=== PATIENT | female | born 2005 | race Caucasian/White ===

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

== ENCOUNTER 2024-04-01 10:54 | Outpatient (OUT) | payer MEDICAID, SELFPAY ==
--- NOTE | 2024-04-01 10:58 | XR_ITS ---
[address] [address] Patient Name: MAG SANTOS MRN: [id number] date: 2005 Sex: F Assigned Patient Location: [facility] Current Patient Location: Accession/Order Number: [id number] Exam Date: 04/01/2024 11:08 Report Date: 04/02/2024 11:58 At the request of: YEHUDA DELGADO Procedure: XR knee RT 3V PROCEDURE: XR knee RT 3V COMPARISON: None. HISTORY: Internal Derangement Of Right Knee FINDINGS: BONES:No fracture, acute abnormality, or significant arthropathy. SOFT TISSUES:Negative. No visible soft tissue swelling. EFFUSION:None visible. OTHER: Negative. XR/XR knee RT 3V IMPRESSION: No acute radiographic abnormality Electronically authenticated by: MAI MILLER Date: 04/02/2024 11:58
--- OUTSIDE RECORDS SUMMARY | 2024-04-01 11:04 | XMS_ITS | CCD ---
Author Organization [facility] Care Team Providers Care Light Armored Vehicle Officer Name Role Phone AICHHOLZ, RECEPTIONIST TELEPHONE OPERATOR LUZMARIA Attending Unavailable AICHHOLZ, RECEPTIONIST TELEPHONE OPERATOR LUZMARIA Admitting Unavailable AICHHOLZ, RECEPTIONIST TELEPHONE OPERATOR LUZMARIA Primary Care Unavailable GINETTE .SHERWIN Consulting Unavailabl e DIAB ., CAROLIN Attending Unavailable DIAB ., CAROLIN Admitting Unavailable AICHHOLZ, RECEPTIONIST TELEPHONE OPERATOR LUZMARIA Primary Care Unavailable CRISTINA MCKEON Consulting Unavailable DIAB ., CAROLIN Consulting Unavailable ZIEBEHSAN, DR BRENDA Mckinney Consulting Unavailable PAY ., DR DAWSON Attending Unavailable PAY ., DR DAWSON Admitting Unavailable AICHHOLZ, RECEPTIONIST TELEPHONE OPERATOR LUZMARIA Primary Care Unavailable PAY ., DR DAWSON Consulting Unavailable MISC, DR RUDOLPH Attending Unavailable MISC, DR RUDOLPH Admitting Unavailable MISC, DR RUDOLPH Consulting Unavailable AICHHOLZ, RECEPTIONIST TELEPHONE OPERATOR LUZMARIA Primary Care Unavailable AICHHOLZ, RECEPTIONIST TELEPHONE OPERATOR LUZMARIA Attending Unavailable AICHHOLZ, RECEPTIONIST TELEPHONE OPERATOR LUZMARIA Admitting Unavailable AICHHOLZ, RECEPTIONIST TELEPHONE OPERATOR LUZMARIA Primary Care Unavailable AICHHOLZ, RECEPTIONIST TELEPHONE OPERATOR LUZMARIA Consulting Unavailable ZIEBER, DR BRENDA Mckinney Consulting Unavailable AICHHOLZ, LUZMARIA Attending Unavailable Aichholz CHIEF ENGINEER'S HELPER, Luzmaria Unavailable Javier Gutierrez MD Primary Care Provider Luzmaria Allen Primary Care Provider [phone] Félix White MD Attending Provider [phone] Luzmaria Allen Primary Care Unavailable Félix White Attending Unavailable Asalita, Imlita Admitting Unavailable Allergies Allergy Classification Reported Allergen(s) Allergy Type Date of Onset Reaction(s) Facility (1 source) Aspirin / Caffeine Drug Allergy [facility] Repository (1 source) Brompheniramine / Pseudoephedrine Drug Allergy 05-10-19 15 [facility] Repository (1 source) Sulfamethoxazole / Trimethoprim Drug Allergy 08-22-19 13 [facility] Repository (1 source) vitamin K3 Drug Allergy [facility] Repository (3 sources) Brompheniramine Drug Allergy 12-24-19 GI intolerance [facility] Work Phone: Comment on above: vomiting (3 sources) Phenylephrine Drug Allergy 12-24-19 GI intolerance [facility] Comment on above: vomiting (3 sources) Pseudoephedrine Drug Allergy 12-24-[address] [facility] Comment on above: vomiting (3 sources) Sulfamethoxazole Allergy to substance 12-24-[address] [facility] Comment on above: vomiting (3 sources) Trimethoprim [facility] on above: vomiting (1 source) Pseudoeph-Bromphen- Dm Propensity to adverse [facility] Brompheniramine Drug Allergy 03-04-20 [facility] Repository (1 source) Phenylephrine Drug Allergy 03-04-20 [facility] Repository (1 source) Pseudoephedrine Drug Allergy 03-04-20 [facility] Repository (1 source) Sulfamethoxazole Drug Allergy 03-04-20 [facility] Repository (1 source) Trimethoprim Drug Allergy 03-04-20 [facility] Repository Medications Current Medications Medication Drug Class(es) Dates Sig (Normalized) Sig (Original) [id number] actuat albuterol 0.09 mg/actuat metered dose inhaler (1 source) beta2-Adrenergic Agonist take 2 puff(s) by inhalation every six hours for wheezing albuterol HFA 90 mcg/act inhaler Inhale 2 puffs every 6 (six) hours if needed for wheezing or shortness of breath Active fluticasone propionate 0.05 mg/actuat metered dose nasal spray (1 source) Corticosteroid Start: 12-23-2022 take 2 spray(s) nasal route once daily fluticasone (Flonase) 50 MCG/ACT nasal spray Administer 2 sprays into each nostril Daily 12/23/2022 Active loratadine 10 mg oral tablet (1 source) loratadine (Claritin) 10 MG tablet TAKE 2 TABS DAILY FOR THE FIRST 5 DAYS, THEN TAKE 1-2 NEEDED FOR ALLERGY SYMPTOMS THEREAFTER. Active sertraline 100 mg oral tablet (3 sources) Serotonin Reuptake Inhibitor Start: 02-12-2024 take 1 tablet by mouth once daily Sertraline 100 mg tablet Active 100 MG PO Daily February 11, 2024 11:00pm take 1 tablet by mouth once daniel y sertraline (Zoloft) 100 MG tablet Take 100 mg by mouth Daily Active Completed/Discontinued Medications Medication Drug Class(es) Dates Sig (Normalized) Sig (Original) pantoprazole 20 mg delayed release oral tablet (6 sources) Proton Pump Inhibitor Start: 10-21-2023 End: 02-19-2024 take 1 tablet by mouth once daily Pantoprazole 20 mg tablet,delayed release (DR/EC) Discontinued 20 MG PO Daily February 11, 2024 11:00pm February 12, 2024 8:23am Problems Active Problems Problem Classification Problem Date Documented Da te Episodic/Chronic Allergic reactions (1 source) Atopic dermatitis; Translations: [Atopic dermatitis, unspecified] Onset: 4 12-04-2023 Chronic Anxiety disorders (1 source) Mixed anxiety and depressive disorder; Translations: [Anxiety disorder, unspecified] Onset: 4 09-16-2023 Chronic Asthma (1 source) Mild intermittent asthma; Translations: [Mild intermittent asthma, uncomplicated] Onset: 4 09-16-2023 Chronic E Codes: Struck by; against (1 source) Striking against or struck by other objects, initial encounter; Translations: [STRIKING AGNST/STRUCK OTH OBJ INIT] Onset: 3 Episodic Esophageal disorders (6 sources) Gastroesophageal reflux disease without esophagitis; Translations: [Gastro-esophageal reflux disease without esophagitis] Onset: 4 01-20-2024 Chronic Other aftercare (4 sources) Other jail (current) drug therapy; Translations: [OTH SKILLED NURSING CURRENT DRUG THERAPY] Onset: 2 Episodic Other gastrointestinal disorders (1 source) Dysphagia, unspecified; Translations: [Dysphagia, unspecified] Onset: 4 Episodic Other non-traumatic joint disorders (3 sources) Pain in left wrist; Translations: [PAIN IN LEFT WRIST] Onset: 3 Episodic Other upper respiratory disease (1 source) Allergic disposition; Translations: [Other allergic rhinitis] Onset: 4 09-16-2023 Chronic Superficial injury; contusion (2 sources) Contusion of left wrist, initial encounter; Translations: [Contusion of right hand, initial encounter] Onset: 2 Episodic Past or Other Problems Problem Classification Problem Date Documented Da te Episodic/Chronic Abdominal pain (1 source) Right upper quadrant pain; Translations: [Right upper quadrant pain] Onset: 09-16-2023 10-21-2023 Episodic Other connective tissue disease (1 source) Pain in right hand; Translations: [PAIN IN RIGHT HAND] Onset: 03-20-2022 Episodic Other gastrointestinal disorders (1 source) Constipation; Translations: [Other constipation] Onset: 09-16-2023 09-16-2023 Episodic Other non-traumatic joint disorders (3 sources) Pain in right wrist; Translations: [PAIN IN RIGHT WRIST] Onset: 03-18-2022 Episodic Other non-traumatic joint disorders (4 sources) Pain in left elbow; Translations: [PAIN IN LEFT ELBOW] Onset: 01-16-2022 Episodic Other nutritional; endocrine; and metabolic disorders (1 source) Body mass index 30+ - obesity; Translations: [Obesity, unspecified] Onset: 09-16-2023 Resolved: 09-16-2023 09-16-2023 Chronic Other nutritional; endocrine; and metabolic disorders (1 source) Body mass index 25-29 - overweight; Translations: [Overweight] Onset: 09-16-2023 09-16-2023 Episodic Results Test Name Value Interpretation Reference Range Facil ity HCG ( test) IAsalena d Ql (U)Ordered By: Félix White on 03-04-2024 HCG ( test) Ql (U) Urine human chorionic gonadotropin (hCG) detection by immunoassay [facility] HCG,Urineon 03-04-2024 Beta HCG ( test) Ql (U) Negative Normal [facility] Comment on above: Result Comment: PERF ORMED BY: [address] [place] [address] PATHOLOGIST EMBOSSING TOOL SETTER REBECCA PUGH M.D. Performed By: #### U HCG #### [address] [place] [address] [facility] Pathology Request for Lab Co rpon 03-04-2024 Pathology Request for Lab Yajaira Normal [facility] Comment on above: Order Comment: PATH SENDOUT-GI SPECIMEN Result Comment: See report. Scanned copy available in EMR. PERFORMED BY: [place] [address] PATHOLOGIST EMBOSSING TOOL SETTER REBECCA PUGH M.D. Performed By: #### P ATH TO [facility] #### [facility] [address] [place], [place] [id number] [facility] XR WRIST LT MIN 3 Von 2022 XR WRIST LT MIN 3 V EXAM: XR WRIST LT MIN 3 V HISTORY: Pain of left wrist COMPARISON: None. TECHNIQUE: 3 views of the left wrist are performed. FINDINGS: There is no acute fracture. The bony structures are intact. Joint spaces are maintained. Unremarkable soft tissues. IMPRESSION: No acute bony abnormality. Electronically authenticated by: CRISTINA MCKEON Date: 2022-05-14 22:36 Normal [facility] QUANTIFERON TB GOLD PLUSon 1 05-28-2021 QuantiFERON Criteria Comment Normal [facility] Comment on above: Result Comment: Lester [...] test. Performed By: #### Q NTTB #### [facility] [address] [address] [address] Rigoberto Quintero QuantiFERON Incubation Incubation performed. Normal [facility] Comment on above: Performed By: #### Q NTTB #### [facility] [address] [address] [address] Rigoberto Quintero QuantiFERON Mitogen Value >10.00 Normal [facility] Comment on above: Performed By: #### Q NTTB #### [facility] [address] [address] [address] Rigoberto Quintero QuantiFERON Nil Value 0.02 IU/mL Normal [facility] Comment on above: Performed By: #### Q NTTB #### [facility] [address] [place] [address] Dr. Rigoberto Quintero QuantiFERON TB1 Ag Value 0.02 IU/mL Normal [facility] Comment on above: Performed By: #### Q NTTB #### [facility] [address] [place] [address] Dr. Rigoberto Quintero QuantiFERON TB2 Ag Value 0.02 IU/mL Normal [facility] Comment on above: Performed By: #### Q NTTB #### [facility] [address] [place] [address] Dr. Rigoberto Quintero QuantiFERON-TB Gold Plus Negative Normal Negative [facility] Comment on above: Result Comment: No r esponse to M tuberculosis antigens detected. Infection with M tuberculosis is unlikely, but high risk individuals should be considered for additional testing (ATS/IDSA/CDC Clinical Practice Guidelines, 2017). The reference range is an Antigen minus Nil result of <0.35 IU/mL. Chemiluminescence immunoassay methodology Performed By: #### Q NTTB #### [facility] [address] [place] [address] Dr. Rigoberto Quintero CBC AUTO DIFFon 03-25-2022 BASO # 0.0 103/ul Normal 0.0-0.1 [facility] Comment on above: Performed By: #### C BC #### [facility] [address] [place] [address] Dr. Rigoberto Quintero Basophils/100 WBC (Bld) 0.6 % Normal 0.2-2.0 [facility] Comment on above: Performed By: #### C BC #### [facility] [address] [place] [address] Dr. Rigoberto Quintero EO # 0.1 103/ul Normal 0.0-0.7 [facility] Comment on above: Performed By: #### C BC #### [facility] [address] [place] [address] Dr. Rigoberto Quintero Eosinophils/100 WBC (Bld) 1.1 % Normal 0.9-7.0 [facility] Comment on above: Performed By: #### C BC #### [facility] [address] [place] [address] Dr. Rigoberto Quintero Erythrocyte distribution width (RBC) [Ratio] 12.0 % Normal 11.0-15.0 [facility] Comment on above: Performed By: #### C BC #### [facility] [address] [place] [address] Dr. Rigoberto Quintero Hematocrit (Bld) [Volume fraction] 43.7 % Normal 36.0-48.0 [facility] Comment on above: Performed By: #### C BC #### [facility] [address] [place] [address] Dr. Rigoberto Quintero Hemoglobin (Bld) [Mass/Vol] 14.7 g/dL Normal 12.0-16.0 [facility] Comment on above: Performed By: #### C BC #### [facility] [address] [place] [address] Dr. Rigoberto Quintero IG # 0.01 10e3/ul Normal 0.00-0.03 [facility] Comment on above: Performed By: #### C BC #### [facility] [address] [place] [address] Dr. Rigoberto Quintero IG % 0.2 % Normal 0.0-0.5 [facility] Comment on above: Performed By: #### C BC #### [facility] [address] [place] [address] Dr. Rigoberto Quintero LYMPH # 1.8 103/ul Normal 1.2-3.8 [facility] Comment on above: Performed By: #### C BC #### [facility] [address] [place] [address] Dr. Rigoberto Quintero Lymphocytes/100 WBC (Bld) 27.8 % Normal 20.5-60.0 [facility] Comment on above: Performed By: #### C BC #### [facility] [address] [place] [address] Dr. Rigoberto Quintero MANUAL DIFF REQ NO Normal [facility] Comment on above: Performed By: #### C BC #### [facility] [address] [place] [address] Dr. Rigoberto Quintero MCH (RBC) [Entitic mass] 28.1 pg Normal 26.7-34.0 [facility] Comment on above: Performed By: #### C BC #### [facility] [address] [place] [address] Dr. Rigoberto Quintero MCHC (RBC) [Mass/Vol] 33.6 g/dL Normal 29.9-35.2 [facility] Comment on above: Performed By: #### C BC #### [facility] [address] [place] [address] Dr. Rigoberto Quintero MCV (RBC) [Entitic vol] 83.4 fL Normal 81.0-99.0 [facility] Comment on above: Performed By: #### C BC #### [facility] [address] [place] [address] Dr. Rigoberto Quintero MONO # 0.5 103/ul Normal 0.3-0.8 [facility] Comment on above: Performed By: #### C BC #### [facility] [address] [place] [address] Dr. Rigoberto Quintero Monocytes/100 WBC (Bld) 7.3 % Normal 1.7-12.0 [facility] Comment on above: Performed By: #### C BC #### [facility] [address] [place] [address] Dr. Rigoberto Quintero NEUT # 4.0 103/ul Normal 1.4-6.5 [facility] Comment on above: Performed By: #### C BC #### [facility] [address] [place] [address] Dr. Rigoberto Quintero Neutrophils/100 WBC (Bld) 63.0 % Normal 43.0-75.0 [facility] Comment on above: Performed By: #### C BC #### [facility] [address] [place] [address] Dr. Rigoberto Quintero Platelet mean volume (Bld) [Entitic vol] 10.6 fL Normal 9.5-13.5 [facility] Comment on above: Performed By: #### C BC #### [facility] [address] [address] [address] Rigoberto Quintero PLT 219 103/ul Normal 150-450 [facility] Comment on above: Performed By: #### C BC #### [facility] [address] [address] [address] Rigoberto Quintero RBC 5.24 106/ul Normal 4.20-5.40 [facility] Comment on above: Performed By: #### C BC #### [facility] [address] [address] [address] Rigoberto Quintero WBC 6.3 103/ul Normal 4.0-11.0 [facility] Comment on above: Performed By: #### C BC #### [facility] [address] [place] [address] Dr. Rigoberto Quintero LIPID PROFILEon 03-25-2022 CHOL-HDL RATIO NORM SEE BELOW Normal [facility] Comment on above: Result Comment: 3.3 - 4.4 LOW RISK 4.4 - 7.1 AVERAGE RISK 7.1 - 11.0 MODERATE RISK >11.0 HIGH RISK Performed By: #### C MP, LIPID #### [facility] [address] [place] [address] Dr. Rigoberto Quintero Cholesterol [Mass/Vol] 168 mg/dL Normal 104-227 [facility] Comment on above: Performed By: #### C MP, LIPID #### [facility] [address] [address] [address] Rigoberto Quintero Cholesterol in HDL [Mass/Vol] 49 mg/dL Normal 29-69 [facility] Comment on above: Performed By: #### C MP, LIPID #### [facility] [address] [address] [address] Rigoberto Quintero Cholesterol in LDL [Mass/Vol] 103.0 mg/dL Normal 46.0-140.0 [facility] Comment on above: Performed By: #### C MP, LIPID #### [facility] [address] [place] [address] Dr. Rigoberto Quintero Cholesterol.total/C holesterol in HDL [Mass ratio] 3.4 {ratio} Normal [facility] Comment on above: Performed By: #### C MP, LIPID #### [facility] [address] [address] [address] Rigoberto Quintero HDL NORMAL > or = 60 mg/dl - LOW CARDIOVASCULAR RISK <40 mg/dl - HIGH CARDIOVASCULAR RISK Normal [facility] Comment on above: Performed By: #### C MP, LIPID #### [facility] [address] [address] [address] Rigoberto Quintero LDL CALC NORMAL SEE BELOW Normal [facility] Comment on above: Result Comment: <100 mg/dl OPTIMAL 100 - 129 mg/dl NEAR OR ABOVE OPTIMAL 130 - 159 mg/dl BORDERLINE HIGH 160 - 189 mg/dl HIGH >190 mg/dl VERY HIGH Performed By: #### C MP, LIPID #### [facility] [address] [address] [address] Rigoberto Quintero Triglyceride [Mass/Vol] 80 mg/dL Normal 53-208 [facility] Comment on above: Performed By: #### C MP, LIPID #### [facility] [address] [address] [address] Rigoberto Quintero VLDL CALC 16.0 mg/dL Normal [facility] Comment on above: Performed By: #### C MP, LIPID #### [facility] [address] [address] [address] Rigoberto Quintero PROF 14(COMP METB)on 022 Albumin [Mass/Vol] 4.1 g/dL Normal 3.4-5.0 [facility] Comment on above: Performed By: #### C MP, LIPID #### [facility] [address] [address] [address] Rigoberto Quintero Albumin/Globulin [Mass ratio] 0.9 {ratio} Normal [facility] Comment on above: Performed By: #### C MP, LIPID #### [facility] [address] [address] [address] Rigoberto Quintero ALP [Catalytic activity/Vol] 91 U/L Normal 46-116 [facility] Comment on above: Performed By: #### C MP, LIPID #### [facility] [address] [address] [address] Rigoberto Quintero ALT [Catalytic activity/Vol] 38 U/L Normal 14-59 [facility] Comment on above: Performed By: #### C MP, LIPID #### [facility] [address] [address] [address] Rigoberto Quintero Anion gap [Moles/Vol] 14.1 mmol/L Normal [facility] Comment on above: Performed By: #### C MP, LIPID #### [facility] [address] [address] [address] Rigoberto Quintero AST [Catalytic activity/Vol] 28 U/L Normal 15-37 [facility] Comment on above: Performed By: #### C MP, LIPID #### [facility] [address] [place] [address] Dr. Rigoberto Quintero Bilirubin [Mass/Vol] 0.5 mg/dL Normal 0.2-1.0 [facility] Comment on above: Performed By: #### C MP, LIPID #### [facility] [address] [place] [address] Dr. Rigoberto Quintero Calcium [Mass/Vol] 9.6 mg/dL Normal 8.5-10.1 [facility] Comment on above: Performed By: #### C MP, LIPID #### [facility] [address] [place] [address] Dr. Rigoberto Quintero Chloride [Moles/Vol] 102 mmol/L Normal 98-107 [facility] Comment on above: Performed By: #### C MP, LIPID #### [facility] [address] [place] [address] Dr. Rigoberto Quintero CO2 [Moles/Vol] 27.6 mmol/L Normal 21.0-32.0 [facility] Comment on above: Performed By: #### C MP, LIPID #### [facility] [address] [place] [address] Dr. Rigoberto Quintero Creatinine [Mass/Vol] 0.67 mg/dL Normal 0.55-1.02 [facility] Comment on above: Performed By: #### C MP, LIPID #### [facility] [address] [address] [address] Rigoberto Quintero EGFR-AF BANGLADESHI >60 Normal >=60 [facility] Comment on above: Performed By: #### C MP, LIPID #### [facility] [address] [address] [address] Rigoberto Quintero EGFR-NON AF BANGLADESHI >60 Normal >=60 [facility] Comment on above: Performed By: #### C MP, LIPID #### [facility] [address] [address] [address] Rigoberto Quintero Globulin (S) [Mass/Vol] 4.5 g/dL Normal [facility] Comment on above: Performed By: #### C MP, LIPID #### [facility] [address] [place] [address] Dr. Rigoberto Quintero Glucose [Mass/Vol] 90 mg/dL Normal 74-106 [facility] Comment on above: Performed By: #### C MP, LIPID #### [facility] [address] [place] [address] Dr. Rigoberto Quintero Potassium [Moles/Vol] 3.7 mmol/L Normal 3.5-5.1 [facility] Comment on above: Performed By: #### C MP, LIPID #### [facility] [address] [place] [address] Dr. Rigoberto Quintero Protein [Mass/Vol] 8.6 g/dL Critically high 6.4-8.2 [facility] Comment on above: Performed By: #### C MP, LIPID #### [facility] [address] [place] [address] Dr. Rigoberto Quintero Sodium [Moles/Vol] 140 mmol/L Normal 136-145 [facility] Comment on above: Performed By: #### C MP, LIPID #### [facility] [address] [address] [address] Rigoberto Quintero Urea nitrogen [Mass/Vol] 16.0 mg/dL Normal 6.4-19.3 [facility] Comment on above: Performed By: #### C MP, LIPID #### [facility] [address] [address] [address] Rigoberto Quintero Urea nitrogen/Creatinine [Mass ratio] 23.9 mg/mg Normal [facility] Comment on above: Performed By: #### C MP, LIPID #### [facility] [address] [place], [place] [address] Dr. Rigoberto Quintero Vital Signs Date Time Vital Sign Value Performing Clinician Faci lity 03-04-2024 14:35-0500 Diastolic blood pressure 64 mm[Hg] Luzmaria Aichrasz Work Phone: [facility] 03-04-2024 14:35-0500 Heart rate 61 /min Luzmaria Aichholz Work Phone: [facility] 03-04-2024 14:35-0500 Respiratory rate 16 /min Luzmaria Aichholz Work Phone: [facility] 03-04-2024 14:35-0500 SaO2% (BldA) [Mass fraction] 99 % Luzmaria Aichholz Work Phone: [facility] 03-04-2024 14:35-0500 Systolic blood pressure 105 mm[Hg] Luzmaria Aichholz Work Phone: [facility] 03-04-2024 12:22-0500 Body height 177.8 cm Luzmaria Aichholz Work Phone: [facility] 03-04-2024 12:22-0500 Body weight 90.71 kg Luzmaria Aichholz Work Phone: [facility] 02-12-2024 09:05-0400 Body height 177.8 cm [facility] 02-12-2024 09:05-0400 Body mass index (BMI) [Ratio] 28.1 kg/m2 [facility] 02-12-2024 09:05-0400 Body weight 88.9 kg [facility] 02-12-2024 09:05-0400 Diastolic blood pressure 57 mm[Hg] [facility] 02-12-2024 09:05-0400 Heart rate 86 /min [facility] 02-12-2024 09:05-0400 Systolic blood pressure 108 mm[Hg] [facility] Encounters Encounter Date Encounter Type Care Provider Facility Start: 03-04-2024 Non-patient / Non-visit Luzmaria almazan Work Phone: [facility] Work Phone: Start: 03-04-2024 End: 03-04-2024 Admission to same day surgery center Luzmaria Allen Work Phone: [facility] Work Phone: Start: 03-04-2024 End: 03-04-2024 ambulatory Luzmaria Allen Work Phone: [facility] Work Phone: Start: 02-12-2024 End: 02-12-2024 ambulatory [facility] Work Phone: Start: 02-12-2024 End: 02-12-2024 Patient encounter procedure [facility] Work Phone: Start: 01-20-2024 End: 01-20-2024 Refill Luzmaria Allen [employer]IE[employer] Work Phone: [facility] Comment on above: Gastroesophageal ref lux disease without esophagitis Start: 09-16-2023 End: 09-16-2023 ambulatory LUZMARIA ALLEN Not Available Start: 06-24-2022 ambulatory RECEPTIONIST TELEPHONE OPERATOR LUZMARIA ALLEN Facil ity:H1 Start: 05-14-2022 End: 05-15-2022 ambulatory SHERWIN PENG . Facility:[facility] Start: 03-25-2022 End: 03-26-[address] DOCTOR SINGH Facility:[facility] Start: 03-18-2022 End: 03-18-[address] BRENDA DO Facility:[facility]1 Start: 01-16-2022 End: 01-17-2022 ambulatory ARLENE ALLEN Facility:[facility]1 Procedures Date Procedure Procedure Detail Performing Clinician Start: 03-04-2024 Esophagogastroduodenoscopy Luzmaria Deanahholz Work Phone: Plan of Treatment Date Care Activity Detail Author Start: 03-04-2024 [facility] Patient Education Andre knutson Know your Meds [facility] Work Phone: Immunizations Immunization Date Immunization Notes Care Provider Fa cility 01-01-2022 meningococcal B vacc ine, recombinant, OMV, adjuvanted Luzmaria Aichholz [employer]IEF ENGINEER'S HELPER Work Phone: [facility] 11-27-2021 meningococcal B vacc ine, recombinant, OMV, adjuvanted Luzmaria Aichholz [employer]IEF ENGINEER'S HELPER Work Phone: [facility] 11-27-2021 Meningococcal Polysaccharide A,C,Y,W-135 TT Conjugate Luzmaria Aichholz [employer]IE[employer] ENGINEER[employer] HELPER Work Phone: [facility] 12-31-2016 hepatitis A vaccine, pediatric/adolescent dosage, 2 dose schedule Luzmaria Aichholz [employer]IEF ENGINEER'S HELPER Work Phone: [facility] 11-12-2016 meningococcal polysaccharide (groups A, C, Y and W-135) diphtheria toxoid conjugate vaccine (MCV4P) Luzmaria Deanahholz [employer]IEF ENGINEER'S HELPER Work Phone: [facility] 11-12-2016 tetanus toxoid, redu shonda diphtheria toxoid, and acellular pertussis vaccine, adsorbed Luzmaria Aichholz [employer]IEF ENGINEER'[employer] HELPER Work Phone: [facility] 12-13-2009 Diphtheria, tetanus toxoids and acellular pertussis vaccine, and poliovirus vaccine, inactivated Luzmaria Aichholz [employer]IEF ENGINEER'S HELPER Work Phone: [facility] 12-13-2009 hepatitis A vaccine, pediatric/adolescent dosage, 2 dose schedule Luzmaria Aichholz [employer]IEF ENGINEER'S HELPER Work Phone: [facility] 12-13-2009 measles, mumps, rube lla, and varicella virus vaccine Luzmaria Aichholz CHIEF ENGINEER'S HELPER Work Phone: [facility] 05-31-2005 diphtheria, tetanus toxoids and acellular pertussis vaccine, unspecified formulation Luzmaria Aichholz CHIEF ENGINEER'S HELPER Work Phone: [facility] 05-31-2005 haemophilus influenz ae type b vaccine, conjugate unspecified formulation Luzmaria Aichholz [employer]IEF ENGINEER'S HELPER Work Phone: [facility] 05-31-2005 pneumococcal conjuga te vaccine, 7 valent Luzmaria Aichholz CHIEF ENGINEER'S HELPER Work Phone: [facility] 01-07-2005 measles, mumps and r ubella virus vaccine Luzmaria Aichholz CHIEF ENGINEER'S HELPER Work Phone: [facility] 01-07-2005 varicella virus vaccine Luzmaria Aichholz CHIEF ENGINEER'S HELPER Work Phone: [facility] 2004 diphtheria, tetanus toxoids and acellular pertussis vaccine, unspecified formulation Luzmaria Aichholz CHIEF ENGINEER'S HELPER Work Phone: [facility] 2004 haemophilus influenz ae type b conjugate and Hepatitis B vaccine Luzmaria Aichholz CHIEF ENGINEER'S HELPER Work Phone: [facility] 2004 pneumococcal conjuga te vaccine, 7 valent Luzmaria Aichholz CHIEF ENGINEER'S HELPER Work Phone: [facility] 2004 poliovirus vaccine, inactivated Luzmaria Aichholz CHIEF ENGINEER'S HELPER Work Phone: [facility] 2004 diphtheria, tetanus toxoids and acellular pertussis vaccine, unspecified formulation Luzmaria Aichholz CHIEF ENGINEER'S HELPER Work Phone: [facility] 2004 haemophilus influenz ae type b conjugate and Hepatitis B vaccine Luzmaria Aichholz CHIEF ENGINEER'S HELPER Work Phone: [facility] 2004 pneumococcal conjuga te vaccine, 7 valent Luzmaria Aichholz CHIEF ENGINEER'S HELPER Work Phone: [facility] 2004 poliovirus vaccine, inactivated Luzmaria Aichholz CHIEF ENGINEER'S HELPER Work Phone: [facility] 2004 diphtheria, tetanus toxoids and acellular pertussis vaccine, unspecified formulation Luzmaria Aichholz CHIEF ENGINEER'S HELPER Work Phone: [facility] 2004 haemophilus influenz ae type b conjugate and Hepatitis B vaccine Luzmaria Allen CHIEF ENGINEER'S HELPER Work Phone: [facility] 2004 pneumococcal conjuga te vaccine, 7 valent Luzmaria Mosspepe CHIEF ENGINEER'S HELPER Work Phone: [facility] 2004 poliovirus vaccine, inactivated Luzmaria Allen CHIEF ENGINEER'S HELPER Work Phone: [facility] Payers Date Payer Category Payer Self-pay 2022 Medicaid [id number] 2022 Medicaid [place] [employer] [id number] 2022-Present [address] [place] [address] [id number] 2022 Medicaid [id number] 2004 Unknown [id number] 2004 Unknown [id number] 2004 Unknown [id number] 1981 Unknown [id number] 1981 Unknown [id number] 1981 Unknown [id number] 1959 Unknown [id number] Unknown [id number] Social History Date Type Detail Facility Start: 09-16-2023 End: 03-04-2024 Tobacco smoking status WIIS Never smoked tobacco [facility] Start: 09-16-2023 Tobacco use and exposure Smokeless tobacco non-user [facility] Start: 10-21-2023 Alcoholic beverage intake Lifetime non-drinker (finding) [facility] Start: 09-16-2023 End: 10-21-2023 History of Social function [facility] Start: 09-16-2023 End: 10-21-[address] [facility] Start: 09-16-2023 Alcohol Comment caffine: energ y drinks [address] [facility] Start: 2004 Sex assigned at Not on file [facility] Start: 2004 Sex Assigned At Female F [facility] Start: 03-04-2024 Sex Female (finding) [facility] Goals Date Patient Goal Desired Activity /State Procedure note 03-04-2024 Note Date & Type Note Facility 03-04-[address] [facility] enter Evaluation note 02-12-2024 Note Date & Type Note Facility 02-12-2024 Evaluation note Authored February 12, 2024 8:23am 19-year-old female referred to the GI clinic for evaluation of heartburn. + Chronic heartburn f controlled with pantoprazole 20 mg daily + intermittent dysphagia. Will arrange for EGD. Will refill pantoprazole 20 mg daily Antireflux precautions were discussed [facility] Work Phone: Clinical Note 03-18-2022 Note Date & Type [...] authenticated by: BRENDA DO Date: 2022-03-18 08:50 [facility] Clinical Note 03-18-2022 Note Date & [...] authenticated by: BRENDA DO Date: 2022-03-18 08:50 [facility] Clinical Note 01-16-2022 Note Date & Type Note Facility 01-16-2022 Note PROCEDURE: XR ELBOW LT MIN 3 VIEWS HISTORY: Pain of left elbow joint since injury 5 days ago COMPARISON: None. FINDINGS: BONES:No fracture, acute abnormality, or significant arthropathy. SOFT TISSUES:No visible soft tissue swelling. EFFUSION:None visible. OTHER: Negative. IMPRESSION: 1. Normal examination. Electronically authenticated by: BRENDA DO Date: 2022-01-16 11:30 [facility] Evaluation note Note Date & Type Note Facility Evaluation note Diagnosis Gastroesophageal reflux disease without esophagitis Esophageal reflux documented in this encounter [facility] Evaluation note Note Date & Type Note Facility Evaluation note Authored February 12, 2024 9:23am 19-year-old female referred to the GI clinic for evaluation of heartburn. + Chronic heartburn f controlled with pantoprazole 20 mg daily + intermittent dysphagia. Will arrange for EGD. Will refill pantoprazole 20 mg daily Antireflux precautions were discussed [facility] Work Phone: Summary Purpose Family History No Family History Records Found Relationship Condition Age at Onset Recorded Date/T jacki maternal grandmother Hypertension Unknown Heart disease Unknown paternal grandfather Diabetes mellitus Unknown grandparent Malignant neoplasm Unknown Relationship Condition Age at Onset Recorded Date/T jacki maternal grandmother Hypertension Unknown Heart disease Unknown paternal grandfather Diabetes mellitus Unknown grandparent Malignant neoplasm Unknown paternal grandmother Malignant neoplasm of breast Unkn own Advance Directives No Advanced Directives Records Found Advance Directive Response Recorded Date/ Time Advance Directives No October 26 8:47am Advance Directive Response Recorded Date/ Time Advance Directives No October 26 7:47am Chief Complaint and Reason for Visit Chief Complaint Refer: consult GERD Reason for Visit GERD (gastroesophage al reflux disease) Chief Complaint Admit Date Refer: consult GERD February 12, 2024 9 :00am gerd/dysphagia March 04, 2024 11:46am gerd/dysphagia March 04, 2024 1:52pm Reason for Visit Admit Date GERD (gastroesophageal reflux disease) O ctober 2023 9:00am Additional Source Comments INFORMATION SOURCE (unrecogn ized section and content) DATE CREATED AUTHOR 06/22/2022 [facility] DATE CREATED AUTHOR AUTHOR'S ORGANIZ ATION 09/17/2023 [facility] EPIC DATE CREATED AUTHOR AUTHOR'S ORGANIZ ATION 03/16/2024 [facility] Reason for Visit (unrecogniz ed section and content) Reason Comments Med Refill Care Teams (unrecognized sec tion and content) [employer] Relationship Specialty Start Date End Date Javier Gutierrez MD [address] [place] [phone] PCP - General Family Medicine 09/16/23 Luzmaria Allen NP [address] [place] [id number] Referring Physician Nurse Practitioner 11/06/22 Team Status: Active Member Role Status Dates Luzmaria Allen Primary Care Provider Active Team Status: Inactive Member Role Status Dates Félix White MD Attending Provider Active Start: February 12, 2024 End: February 12, 2024 Luzmaria Allen Primary Care Provide r, Referring Provider Active Start: February 12, 2024 End: February 12, 2024 Team Status: Inactive Member Role Status Dates Luzmaria Allen Primary Care Provider Active Sta rt: March 04, 2024 End: March 04, 2024 Félix White MD Attending Provider Active Start: March 04, 2024 End: March 04, 2024 Team Status: Active Member Role Status Dates Luzmaria Allen Primary Care Provider Active Sta rt: March 04, 2024 Félix White MD Attending Provider, Other Provider Active Start: March 04, 2024 Goals (unrecognized section and content) Goals may be documented in a n alternate section FOR RECORDS PERTAINING TO PATIENTS WHO ARE [...] BE BASED ON THE PRIMARY CLINICAL RECORDS. [facility] [employer] [facility]. provides no warranty or guarantee of the accuracy or completeness of information in this document.
== END 2024-04-01 10:55 | disposition home or self-care (01) ==
LOC: RAD 10:55
PROVIDERS: PCP Nurse Practitioner; Visit Provider Nurse Practitioner
DX: M23.91 Unspecified internal derangement of right knee (principal)
CPT/HCPCS: 73562

== ENCOUNTER 2024-04-24 10:43 | Outpatient (OUT) | payer MEDICAID, SELFPAY ==
--- OUTSIDE RECORDS SUMMARY | 2024-04-24 10:47 | XMS_ITS | CCD ---
Author Organization [facility] Care Team Providers Care Cosmetology Professor Name Role Phone AICHHOLZ, SEMIAUTOMATIC STITCHER OPERATOR LUZMARIA Attending Unavailable AICHHOLZ, SEMIAUTOMATIC STITCHER OPERATOR LUZMARIA Admitting Unavailable AICHHOLZ, SEMIAUTOMATIC STITCHER OPERATOR LUZMARIA Primary Care Unavailable GINETTE .SHERWIN Consulting Unavailabl e DIAB ., CAROLIN Attending Unavailable DIAB ., CAROLIN Admitting Unavailable AICHHOLZ, SEMIAUTOMATIC STITCHER OPERATOR LUZMARIA Primary Care Unavailable CRISTINA MCKEON Consulting Unavailable DIAB ., CAROLIN Consulting Unavailable ZIEBEHSAN, DR BRENDA Mckinney Consulting Unavailable PAY ., DR DAWSON Attending Unavailable PAY ., DR DAWSON Admitting Unavailable AICHHOLZ, SEMIAUTOMATIC STITCHER OPERATOR LUZMARIA Primary Care Unavailable PAY ., DR DAWSON Consulting Unavailable MISC, DR RUDOLPH Attending Unavailable MISC, DR RUDOLPH Admitting Unavailable MISC, DR RUDOLPH Consulting Unavailable AICHHOLZ, SEMIAUTOMATIC STITCHER OPERATOR LUZMARIA Primary Care Unavailable AICHHOLZ, SEMIAUTOMATIC STITCHER OPERATOR LUZMARIA Attending Unavailable AICHHOLZ, SEMIAUTOMATIC STITCHER OPERATOR LUZMARIA Admitting Unavailable AICHHOLZ, SEMIAUTOMATIC STITCHER OPERATOR LUZMARIA Primary Care Unavailable AICHHOLZ, SEMIAUTOMATIC STITCHER OPERATOR LUZMARIA Consulting Unavailable ZIEBEHSAN, DR BRENDA Mckinney Consulting Unavailable Aichholz DELIVERY DEPARTMENT SUPERVISOR, Luzmaria Unavailable Javier Gutierrez MD Primary Care Provider [phone] Luzmaria Allen Primary Care Provider Cindy VALLE, Félix Attending Provider Luzmaria Allen Primary Care Unavailable Asalita, Imad Attending Unavailable Asaad, Imad Admitting Unavailable AICHHOLZ, LUZMARIA Attending Unavailable AICHHOLZ, LUZMARIA Attending Unavailable AICHHOLZ, LUZMARIA Attending Unavailable Allergies Allergy Classification Reported Allergen(s) Allergy Type Date of Onset Reaction(s) Facility (1 source) Aspirin / Caffeine Drug Allergy [facility] Repository (1 source) Brompheniramine / Pseudoephedrine Drug Allergy 05-10-19 15 [facility] Repository (1 source) Sulfamethoxazole / Trimethoprim Drug Allergy 08-22-19 13 [facility] Repository (1 source) vitamin K3 Drug Allergy [facility] Repository (9 sources) Brompheniramine Drug Allergy 12-24-19 GI intolerance [facility] Work Phone: Comment on above: vomiting (9 sources) Phenylephrine Drug Allergy 12-24-19 GI intolerance [facility] Comment on above: vomiting (9 sources) Pseudoephedrine Drug Allergy 12-24-19 GI intolerance [facility] Comment on above: vomiting (9 sources) Sulfamethoxazole Allergy to substance 12-24-19 Hives [facility] Comment on above: vomiting (9 sources) Trimethoprim Drug Allergy 12-24-19 Hives [facility] Comment on above: vomiting (7 sources) Pseudoeph-Bromphen- Dm Propensity to adverse reactions 09-16-19 Hives [facility] (1 source) Brompheniramine Drug Allergy 03-04-20 [facility] Repository (1 source) Phenylephrine Drug Allergy 03-04-20 [facility] Repository (1 source) Pseudoephedrine Drug Allergy 03-04-20 [facility] Repository (1 source) Sulfamethoxazole Drug Allergy 03-04-20 [facility] Repository (1 source) Trimethoprim Drug Allergy 03-04-20 [facility] Repository Medications Current Medications Medication Drug Class(es) Dates Sig (Normalized) Sig (Original) [id number] 200 actuat albuterol 0.09 mg/actuat metered dose inhaler (7 sources) beta2-Adrenergic Agonist take 2 puff(s) by inhalation every six hours for wheezing albuterol HFA 90 mcg/act inhaler Inhale 2 puffs every 6 (six) hours if needed for wheezing or shortness of breath Active clobetasol propionate 0.5 mg/ml topical cream (6 sources) Corticosteroid Start: 03-30-2024 clobetasol (Temovate) 0.05 % cream 03/30/2024 Active fluocinolone acetonide 0.1 mg/ml topical oil (6 sources) Corticosteroid Start: 03-30-2024 [place]-Smoothe/FS Body 0.01 % external oil 03/30/2024 Active fluticasone propionate 0.05 mg/actuat metered dose nasal spray (7 sources) Corticosteroid Start: 12-23-2022 take 2 spray(s) nasal route once daily fluticasone (Flonase) 50 MCG/ACT nasal spray Administer 2 sprays into each nostril Daily 12/23/2022 Active loratadine 10 mg oral tablet (6 sources) End: 04-22-2024 loratadine (Claritin) 10 MG tablet TAKE 2 TABS DAILY FOR THE FIRST 5 DAYS, THEN TAKE 1-2 NEEDED FOR ALLERGY SYMPTOMS THEREAFTER. 04/22/2024 Discontinued (Therapy completed) pantoprazole 40 mg delayed release oral tablet (14 sources) Proton Pump Inhibitor Start: 03-30-2024 take 1 tablet by mouth in the morning pantoprazole (ProtoNix) 40 MG EC tablet Take 40 mg by mouth in the morning and 40 mg before bedtime. 03/30/2024 Active Start: 10-21-2023 End: 04-01-2024 take 1 tablet by mouth before mealtime pantoprazole (ProtoNix) 20 MG EC tablet Indications: Gastroesophageal reflux disease without esophagitis Take 1 tablet (20 mg) by mouth in the morning. Take before meals. Do not crush, chew, or split.. 30 tablet 1 01/20/2024 04/01/2024 Discontinued (Ineffective) Risankizumab-rzaa (SKYRIZI S C) (4 sources) End: 04-22-2024 Risankizumab-rzaa (SKYRIZI S C) Inject under the skin 04/22/2024 Discontinued (Therapy completed) Risankizumab-rza a (SKYRIZI SC) Inject under the skin Active sertraline 25 mg oral tablet (12 sources) Serotonin Reuptake Inhibitor Start: 04-02-2024 take 1 tablet by mouth once daily sertraline (Zoloft) 25 MG tablet Take 25 mg by mouth Daily 04/02/2024 Active Start: 02-12-2024 take 1 tablet by ashley th once daily Sertraline 100 mg tablet Active 100 MG PO Daily February 11, 2024 11:00pm sertraline (Zolo ft) 100 MG tablet Take 120 mg by mouth Daily Active Skyrizi Pen 150 MG/ML soluti on auto-injector (3 sources) Start: 04-13-2024 Skyrizi Pen 15 0 MG/ML solution auto-injector 04/13/2024 Active Problems Active Problems Problem Classification Problem Date Documented Da te Episodic/Chronic Allergic reactions (7 sources) Atopic dermatitis; Translations: [Atopic dermatitis, unspecified] Onset: 4 12-04-2023 Chronic Anxiety disorders (9 sources) Mixed anxiety and depressive disorder; Translations: [Anxiety disorder, unspecified] Onset: 4 09-16-2023 Chronic Asthma (7 sources) Mild intermittent asthma; Translations: [Mild intermittent asthma, uncomplicated] Onset: 4 09-16-2023 Chronic Conditions associated with dizziness or vertigo (4 sources) Dizziness and giddiness; Translations: [Dizziness and giddiness] Onset: 5 04-22-2024 Episodic E Codes: Struck by; against (1 source) Striking against or struck by other objects, initial encounter; Translations: [STRIKING AGNST/STRUCK OTH OBJ INIT] Onset: 3 Episodic Esophageal disorders (12 sources) Gastroesophageal reflux disease without esophagitis; Translations: [Gastro-esophageal reflux disease without esophagitis] Onset: 4 01-20-2024 Chronic Joint disorders and dislocations; trauma-related (11 sources) Derangement of right knee; Translations: [Unspecified internal derangement of right knee] Onset: 4 04-01-2024 Chronic Malaise and fatigue (4 sources) Fatigue; Translations: [Other fatigue] Onset: 5 04-22-2024 Episodic Other aftercare (4 sources) Other watermaster (current) drug therapy; Translations: [OTH ASSISTED CURRENT DRUG THERAPY] Onset: 2 Episodic Other gastrointestinal disorders (1 source) Dysphagia, unspecified; Translations: [Dysphagia, unspecified] Onset: 4 Episodic Other inflammatory condition of skin (9 sources) Psoriasis; Translations: [Psoriasis, unspecified] Onset: 4 04-01-2024 Chronic Other non-traumatic joint disorders (3 sources) Pain in left wrist; Translations: [PAIN IN LEFT WRIST] Onset: 3 Episodic Other nutritional; endocrine; and metabolic disorders (11 sources) Body mass index 25-29 - overweight; Translations: [Overweight] Onset: 4 09-16-2023 Episodic Other nutritional; endocrine; and metabolic disorders (4 sources) Excessive thirst; Translations: [Polydipsia] Onset: 5 04-22-2024 Episodic Other upper respiratory disease (7 sources) Allergic disposition; Translations: [Other allergic rhinitis] Onset: 4 09-16-2023 Chronic Superficial injury; contusion (2 sources) Contusion of left wrist, initial encounter; Translations: [Contusion of right hand, initial encounter] Onset: 2 Episodic Past or Other Problems Problem Classification Problem Date Documented Da te Episodic/Chronic Abdominal pain (7 sources) Right upper quadrant pain; Translations: [Right upper quadrant pain] Onset: 09-16-2023 10-21-2023 Episodic Other connective tissue disease (1 source) Pain in right hand; Translations: [PAIN IN RIGHT HAND] Onset: 03-20-2022 Episodic Other gastrointestinal disorders (7 sources) Constipation; Translations: [Other constipation] Onset: 09-16-2023 09-16-2023 Episodic Other non-traumatic joint disorders (3 sources) Pain in right wrist; Translations: [PAIN IN RIGHT WRIST] Onset: 03-18-2022 Episodic Other non-traumatic joint disorders (4 sources) Pain in left elbow; Translations: [PAIN IN LEFT ELBOW] Onset: 01-16-2022 Episodic Other nutritional; endocrine; and metabolic disorders (7 sources) Body mass index 30+ - obesity; Translations: [Obesity, unspecified] Onset: 09-16-2023 Resolved: 09-16-2023 09-16-2023 Chronic Results Test Name Value Interpretation Reference Range Facil ity HCG ( test) IA.rapi d Ql (U)Ordered By: Félix White on 03-04-2024 HCG ( test) Ql (U) Urine human chorionic gonadotropin (hCG) detection by immunoassay [facility] HCG,Urineon 03-04-2024 Beta HCG ( test) Ql (U) Negative Normal The Count Includes [facility] Comment on above: Result Comment: PERF ORMED BY: [facility] [address] [place] [address] PATHOLOGIST SALON COORDINATOR REBECCA PUGH M.D. Performed By: #### U HCG #### [address] Pathology Request for Lab Co rpon 03-04-2024 Pathology Request for Lab Yajaira Normal The Count Includes [facility] Comment on above: Order Comment: PATH SENDOUT-GI SPECIMEN Result Comment: See report. Scanned copy available in EMR. PERFORMED BY: [place] [address] PATHOLOGIST SALON COORDINATOR REBECCA PUGH M.D. Performed By: #### P ATH TO [facility] #### [address] XR WRIST LT MIN 3 Von 2022 [...] CRISTINA MCKEON Date: 2022-05-14 22:36 Normal [facility] QUANTIFERON TB GOLD PLUSon 1 05-28-2021 QuantiFERON Criteria Comment Normal [facility] Comment on above: Result Comment: Lester tiFERON-TB [...] test. Performed By: #### Q NTTB #### [facility] [address] [address] [address] Rigoberto Quintero QuantiFERON Incubation Incubation performed. Normal [facility] Comment on above: Performed By: #### Q NTTB #### [facility] [address] [address] [address] Rigoberto Qunitero QuantiFERON Mitogen Value >10.00 Normal [facility] Comment on above: Performed By: #### Q NTTB #### [facility] [address] [place] [address] Dr. Rigoberto Quintero QuantiFERON Nil Value 0.02 IU/mL Normal [facility] Comment on above: Performed By: #### Q NTTB #### [facility] [address] [place] [address] Dr. Rigoberto Quintero QuantiFERON TB1 Ag Value 0.02 IU/mL Normal [facility] Comment on above: Performed By: #### Q NTTB #### [facility] [address] [place] [address] Dr. Rigoberto Quintero QuantiFERON TB2 Ag Value 0.02 IU/mL Normal [facility] Comment on above: Performed By: #### Q NTTB #### [facility] [address] [place] [address] Dr. Rigoberto Quintero QuantiFERON-TB Gold Plus Negative Normal Negative [facility] Comment on above: Result Comment: No r esponse to M tuberculosis antigens detected. Infection with M tuberculosis is unlikely, but high risk individuals should be considered for additional testing (ATS/IDSA/CDC Clinical Practice Guidelines, 2017). The reference range is an Antigen minus Nil result of <0.35 IU/mL. Chemiluminescence immunoassay methodology Performed By: #### Q NTTB #### [facility] [address] [place] [address] Dr. Rigoberto Quintero CBC AUTO DIFFon 03-25-2022 BASO # 0.0 103/ul Normal 0.0-0.1 [facility] Comment on above: Performed By: #### C BC #### [facility] [address] [place] [address] Dr. Rigoberto Quintero Basophils/100 WBC (Bld) 0.6 % Normal 0.2-2.0 [facility] Comment on above: Performed By: #### C BC #### [facility] [address] [place] [address] Dr. Rigoberto Quintero EO # 0.1 103/ul Normal 0.0-0.7 [facility] Comment on above: Performed By: #### C BC #### [facility] [address] [place] [address] Dr. Rigoberto Quintero Eosinophils/100 WBC (Bld) 1.1 % Normal 0.9-7.0 [facility] Comment on above: Performed By: #### C BC #### [facility] [address] [place] [address] Dr. Rigoberto Quintero Erythrocyte distribution width (RBC) [Ratio] 12.0 % Normal 11.0-15.0 [facility] Comment on above: Performed By: #### C BC #### [facility] [address] [place] [address] Dr. Rigoberto Quintero Hematocrit (Bld) [Volume fraction] 43.7 % Normal 36.0-48.0 [facility] Comment on above: Performed By: #### C BC #### [facility] [address] [place] [address] Dr. Rigoberto Quintero Hemoglobin (Bld) [Mass/Vol] 14.7 g/dL Normal 12.0-16.0 [facility] Comment on above: Performed By: #### C BC #### [facility] [address] [place] [address] Dr. Rigoberto Quintero IG # 0.01 10e3/ul Normal 0.00-0.03 [facility] Comment on above: Performed By: #### C BC #### [facility] [address] [place] [address] Dr. Rigoberto Quintero IG % 0.2 % Normal 0.0-0.5 [facility] Comment on above: Performed By: #### C BC #### [facility] [address] [place] [address] Dr. Rigoberto Quintero LYMPH # 1.8 103/ul Normal 1.2-3.8 [facility] Comment on above: Performed By: #### C BC #### [facility] [address] [place] [address] Dr. Rigoberto Quintero Lymphocytes/100 WBC (Bld) 27.8 % Normal 20.5-60.0 [facility] Comment on above: Performed By: #### C BC #### [facility] [address] [place] [address] Dr. Rigoberto Quintero MANUAL DIFF REQ NO Normal [facility] Comment on above: Performed By: #### C BC #### [facility] [address] [place] [address] Dr. Rigoberto Quintero MCH (RBC) [Entitic mass] 28.1 pg Normal 26.7-34.0 [facility] Comment on above: Performed By: #### C BC #### [facility] [address] [place] [address] Dr. Rigoberto Quintero MCHC (RBC) [Mass/Vol] 33.6 g/dL Normal 29.9-35.2 [facility] Comment on above: Performed By: #### C BC #### [facility] [address] [place] [address] Dr. Rigoberto Quintero MCV (RBC) [Entitic vol] 83.4 fL Normal 81.0-99.0 [facility] Comment on above: Performed By: #### C BC #### [facility] [address] [place] [address] Dr. Rigoberto Quintero MONO # 0.5 103/ul Normal 0.3-0.8 [facility] Comment on above: Performed By: #### C BC #### [facility] [address] [place] [address] Dr. Rigoberto Quintero Monocytes/100 WBC (Bld) 7.3 % Normal 1.7-12.0 [facility] Comment on above: Performed By: #### C BC #### [facility] [address] [place] [address] Dr. Rigoberto Quintero NEUT # 4.0 103/ul Normal 1.4-6.5 [facility] Comment on above: Performed By: #### C BC #### [facility] [address] [place] [address] Dr. Rigoberto Quintero Neutrophils/100 WBC (Bld) 63.0 % Normal 43.0-75.0 [facility] Comment on above: Performed By: #### C BC #### [facility] [address] [place] [address] Dr. Rigoberto Quintero Platelet mean volume (Bld) [Entitic vol] 10.6 fL Normal 9.5-13.5 [facility] Comment on above: Performed By: #### C BC #### [facility] [address] [place] [address] Dr. Rigoberto Quintero PLT 219 103/ul Normal 150-450 [facility] Comment on above: Performed By: #### C BC #### [facility] [address] [place] [address] Dr. Rigoberto Quintero RBC 5.24 106/ul Normal 4.20-5.40 [facility] Comment on above: Performed By: #### C BC #### [facility] [address] [place] [address] Dr. Rigoberto Quintero WBC 6.3 103/ul Normal 4.0-11.0 [facility] Comment on above: Performed By: #### C BC #### [facility] [address] [place] [address] Dr. Rigoberto Quintero LIPID PROFILEon 03-25-2022 CHOL-HDL RATIO NORM SEE BELOW Normal [facility] Comment on above: Result Comment: 3.3 - 4.4 LOW RISK 4.4 - 7.1 AVERAGE RISK 7.1 - 11.0 MODERATE RISK >11.0 HIGH RISK Performed By: #### C MP, LIPID #### [facility] [address] [place] [address] Dr. Rigoberto Quintero Cholesterol [Mass/Vol] 168 mg/dL Normal 104-227 [facility] Comment on above: Performed By: #### C MP, LIPID #### [facility] [address] [place] [address] Dr. Rigoberto Quintero Cholesterol in HDL [Mass/Vol] 49 mg/dL Normal 29-69 [facility] Comment on above: Performed By: #### C MP, LIPID #### [facility] [address] [place] [address] Dr. Rigoberto Quintero Cholesterol in LDL [Mass/Vol] 103.0 mg/dL Normal 46.0-140.0 [facility] Comment on above: Performed By: #### C MP, LIPID #### [facility] [address] [address] [address] Rigoberto Quintero Cholesterol.total/C holesterol in HDL [Mass ratio] 3.4 {ratio} Normal [facility] Comment on above: Performed By: #### C MP, LIPID #### [facility] [address] [address] [address] Rigoberto Quintero HDL NORMAL > or = 60 mg/dl - LOW CARDIOVASCULAR RISK <40 mg/dl - HIGH CARDIOVASCULAR RISK Normal [facility] Comment on above: Performed By: #### C MP, LIPID #### [facility] [address] [place] [address] Dr. Rigoberto Quintero LDL CALC NORMAL SEE BELOW Normal [facility] Comment on above: Result Comment: <100 mg/dl OPTIMAL 100 - 129 mg/dl NEAR OR ABOVE OPTIMAL 130 - 159 mg/dl BORDERLINE HIGH 160 - 189 mg/dl HIGH >190 mg/dl VERY HIGH Performed By: #### C MP, LIPID #### [facility] [address] [place] [address] Dr. Rigoberto Quintero Triglyceride [Mass/Vol] 80 mg/dL Normal 53-208 [facility] Comment on above: Performed By: #### C MP, LIPID #### [facility] [address] [place] [address] Dr. Rigoberto Quintero VLDL CALC 16.0 mg/dL Normal [facility] Comment on above: Performed By: #### C MP, LIPID #### [facility] [address] [place] [address] Dr. Rigoberto Quintero PROF 14(COMP METB)on 022 Albumin [Mass/Vol] 4.1 g/dL Normal 3.4-5.0 [facility] Comment on above: Performed By: #### C MP, LIPID #### [facility] [address] [place] [address] Dr. Rigoberto Quintero Albumin/Globulin [Mass ratio] 0.9 {ratio} Normal [facility] Comment on above: Performed By: #### C MP, LIPID #### [facility] [address] [place] [address] Dr. Rigoberto Quintero ALP [Catalytic activity/Vol] 91 U/L Normal 46-116 [facility] Comment on above: Performed By: #### C MP, LIPID #### [facility] [address] [place] [address] Dr. Rigoberto Quintero ALT [Catalytic activity/Vol] 38 U/L Normal 14-59 [facility] Comment on above: Performed By: #### C MP, LIPID #### [facility] [address] [place] [address] Dr. Rigoberto Quintero Anion gap [Moles/Vol] 14.1 mmol/L Normal [facility] Comment on above: Performed By: #### C MP, LIPID #### [facility] [address] [place] [address] Dr. Rigoberto Quintero AST [Catalytic activity/Vol] 28 U/L Normal 15-37 [facility] Comment on above: Performed By: #### C MP, LIPID #### [facility] [address] [place] [address] Dr. Rigoberto Quintero Bilirubin [Mass/Vol] 0.5 mg/dL Normal 0.2-1.0 [facility] Comment on above: Performed By: #### C MP, LIPID #### [facility] [address] [place] [address] Dr. Rigoberto Quintero Calcium [Mass/Vol] 9.6 mg/dL Normal 8.5-10.1 [facility] Comment on above: Performed By: #### C MP, LIPID #### [facility] [address] [place] [address] Dr. Rigoberto Quintero Chloride [Moles/Vol] 102 mmol/L Normal 98-107 [facility] Comment on above: Performed By: #### C MP, LIPID #### [facility] [address] [place] [address] Dr. Rigoberto Quintero CO2 [Moles/Vol] 27.6 mmol/L Normal 21.0-32.0 [facility] Comment on above: Performed By: #### C MP, LIPID #### [facility] [address] [place] [address] Dr. Rigoberto Quintero Creatinine [Mass/Vol] 0.67 mg/dL Normal 0.55-1.02 [facility] Comment on above: Performed By: #### C MP, LIPID #### [facility] [address] [address] [address] Rigoberto Quintero EGFR-AF JAPANESE >60 Normal >=60 [facility] Comment on above: Performed By: #### C MP, LIPID #### [facility] [address] [address] [address] Rigoberto Quintero EGFR-NON AF JAPANESE >60 Normal >=60 [facility] Comment on above: Performed By: #### C MP, LIPID #### [facility] [address] [address] [address] Rigoberto Quintero Globulin (S) [Mass/Vol] 4.5 g/dL Normal [facility] Comment on above: Performed By: #### C MP, LIPID #### [facility] [address] [place] [address] Dr. Rigoberto Quintero Glucose [Mass/Vol] 90 mg/dL Normal 74-106 [facility] Comment on above: Performed By: #### C MP, LIPID #### [facility] [address] [place] [address] Dr. Rigoberto Quintero Potassium [Moles/Vol] 3.7 mmol/L Normal 3.5-5.1 [facility] Comment on above: Performed By: #### C MP, LIPID #### [facility] [address] [place] [address] Dr. Rigoberto Quintero Protein [Mass/Vol] 8.6 g/dL Critically high 6.4-8.2 [facility] Comment on above: Performed By: #### C MP, LIPID #### [facility] [address] [place] [address] Dr. Rigoberto Quintero Sodium [Moles/Vol] 140 mmol/L Normal 136-145 [facility] Comment on above: Performed By: #### C MP, LIPID #### [facility] [address] [place] [address] Dr. Rigoberto Quintero Urea nitrogen [Mass/Vol] 16.0 mg/dL Normal 6.4-19.3 [facility] Comment on above: Performed By: #### C MP, LIPID #### [facility] [address] [place], [place] [address] Dr. Rigoberto Quintero Urea nitrogen/Creatinine [Mass ratio] 23.9 mg/mg Normal [facility] Comment on above: Performed By: #### C MP, LIPID #### [facility] [facility] [address], [place] [address] Dr. Rigoberto Quintero Vital Signs Date Time Vital Sign Value Performing Clinician Facility 04-22-2024 13:09-0500 Body height 177.8 cm Luzmaria Tiffany DELIVERY DEPARTMENT SUPERVISOR Work Phone: [facility] 04-22-2024 13:09-0500 Body mass index (BMI) [Ratio] 28.7 kg/m2 Luzmaria Aichrasz DELIVERY DEPARTMENT SUPERVISOR Work Phone: [facility] 04-22-2024 13:09-0500 Body temperature 98.01 [degF] Luzmaria Aichrasz DELIVERY DEPARTMENT SUPERVISOR Work Phone: [facility] 04-22-2024 13:09-0500 Body weight 90.72 kg Luzmaria Aichholz DELIVERY DEPARTMENT SUPERVISOR Work Phone: [facility] 04-22-2024 13:09-0500 Diastolic blood pressure 78 mm[Hg] Luzmaria Aichholz DELIVERY DEPARTMENT SUPERVISOR Work Phone: [facility] 04-22-2024 13:09-0500 Heart rate 76 /min Luzmaria Aichholz DELIVERY DEPARTMENT SUPERVISOR Work Phone: [facility] 04-22-2024 13:09-0500 Respiratory rate 18 /min Luzmaria Aichholz DELIVERY DEPARTMENT SUPERVISOR Work Phone: [facility] 04-22-2024 13:09-0500 SaO2% (BldA) [Mass fraction] 98 % Luzmaria Aichholz DELIVERY DEPARTMENT SUPERVISOR Work Phone: [facility] 04-22-2024 13:09-0500 Systolic blood pressure 108 mm[Hg] Luzmaria Aichholz DELIVERY DEPARTMENT SUPERVISOR Work Phone: [facility] 04-01-2024 09:02-0500 Body height 177.8 cm Luzmaria Aichholz DELIVERY DEPARTMENT SUPERVISOR Work Phone: [facility] 04-01-2024 09:02-0500 Body mass index (BMI) [Ratio] 28.27 kg/m2 Luzmaria Aichholz DELIVERY DEPARTMENT SUPERVISOR Work Phone: [facility] 04-01-2024 09:02-0500 Body temperature 98.01 [degF] Luzmaria Aichholz DELIVERY DEPARTMENT SUPERVISOR Work Phone: [facility] 04-01-2024 09:02-0500 Body weight 89.36 kg Luzmaria Aichholz DELIVERY DEPARTMENT SUPERVISOR Work Phone: [facility] Comment on above: with coat on 04-01-2024 09:02-0500 Diastolic blood pressure 78 mm[Hg] Luzmaria Aichholz DELIVERY DEPARTMENT SUPERVISOR Work Phone: [facility] 04-01-2024 09:02-0500 Heart rate 81 /min Luzmaria Aichholz DELIVERY DEPARTMENT SUPERVISOR Work Phone: [facility] 04-01-2024 09:02-0500 Respiratory rate 18 /min Luzmaria Aichholz DELIVERY DEPARTMENT SUPERVISOR Work Phone: [facility] 04-01-2024 09:02-0500 SaO2% (BldA) [Mass fraction] 96 % Luzmaria Aichholz DELIVERY DEPARTMENT SUPERVISOR Work Phone: [facility] 04-01-2024 09:02-0500 Systolic blood pressure 110 mm[Hg] Luzmaria Aichholz DELIVERY DEPARTMENT SUPERVISOR Work Phone: [facility] 03-04-2024 14:35-0500 Diastolic blood pressure 64 mm[Hg] Luzmaria Aichholz Work Phone: [facility] 03-04-2024 14:35-0500 Heart rate 61 /min Luzmaria Aichholz Work Phone: [facility] 03-04-2024 14:35-0500 Respiratory rate 16 /min Luzmaria Aichholz Work Phone: [facility] 03-04-2024 14:35-0500 SaO2% (BldA) [Mass fraction] 99 % Luzmaria Mosspepe Work Phone: [facility] 03-04-2024 14:35-0500 Systolic blood pressure 105 mm[Hg] Luzmaria Deanajosepepe Work Phone: [facility] 03-04-2024 12:22-0500 Body height 177.8 cm Luzmaria Deanajosepepe Work Phone: [facility] 03-04-2024 12:22-0500 Body weight 90.71 kg Luzmaria Mosspepe Work Phone: [facility] 02-12-2024 09:05-0400 Body height 177.[address] [facility] 02-12-2024 09:05-0400 Body mass index (BMI) [Ratio] 28.1 kg/m2 [facility] 02-12-2024 09:05-0400 Body weight 88.[address] [facility] 02-12-2024 09:05-0400 Diastolic blood pressure 57 mm[Hg] [facility] 02-12-2024 09:05-0400 Heart rate 86 /min [facility] 02-12-2024 09:05-0400 Systolic blood pressure 108 mm[Hg] [facility] Encounters Encounter Date Encounter Type Care Provider Facility Start: 04-22-2024 End: 04-22-2024 Bamboo flowsheet Luzmaria Allen DELIVERY DEPARTMENT SUPERVISOR Work Phone: [facility] Start: 04-22-2024 End: 04-22-2024 Bamboo flowsheet Luzmaria Allen DELIVERY DEPARTMENT SUPERVISOR Work Phone: [facility] Start: 04-22-2024 End: 04-22-2024 Office outpatient visit 25 minutes Luzmaria Allen DELIVERY DEPARTMENT SUPERVISOR Work Phone: [facility] Comment on above: Dizziness and giddin ess (Primary Dx); Internal derangement of right knee; Overweight (BMI 25.0-29.9); Polydipsia; Other fatigue; Psoriasis (CMS/HCC); Anxiety and depression (CMS/HCC) Start: 04-01-2024 End: 04-01-2024 Bamboo flowsheet Luzmaria Allen DELIVERY DEPARTMENT SUPERVISOR Work Phone: [facility] Start: 04-01-2024 End: 04-01-2024 Bamboo flowsheet Luzmaria Allen DELIVERY DEPARTMENT SUPERVISOR Work Phone: [facility] Start: 04-01-2024 End: 04-01-2024 Office outpatient visit 15 minutes Luzmaria Allen DELIVERY DEPARTMENT SUPERVISOR Work Phone: [facility] Comment on above: Overweight (BMI 25.0 -29.9) (Primary Dx); Internal derangement of right knee; Psoriasis (CMS/HCC) Start: 04-01-2024 End: 04-01-2024 ambulatory LUZMARIA ALLEN Not Available Start: 03-04-2024 Non-patient / Non-visit Luzmaria almazan Work Phone: Count Includes [facility] Work Phone: Start: 03-04-2024 End: 03-04-2024 Admission to same day surgery center Luzmaria Allen Work Phone: [facility] Work Phone: Start: 03-04-2024 End: 03-04-2024 ambulatory Luzmaria Allen Work Phone: [facility] Work Phone: Start: 02-12-2024 End: 02-12-2024 ambulatory [facility] Work Phone: Start: 02-12-2024 End: 02-12-2024 Patient encounter procedure Count Includes [facility] Work Phone: Start: 01-20-2024 End: 01-20-2024 Refill Luzmaria Allen DELIVERY DEPARTMENT SUPERVISOR Work Phone: [facility] Comment on above: Gastroesophageal ref lux disease without esophagitis Start: 10-21-2023 End: 10-21-2023 ambulatory LUZMARIA ALLEN Not Available Start: 09-16-2023 End: 09-16-2023 ambulatory LUZMARIA MOSSHOLZ Not Available Start: 06-24-2022 ambulatory SEMIAUTOMATIC STITCHER OPERATOR LUZMARIA ALLEN Facil ity:[facility] Start: 05-14-2022 End: 05-15-2022 ambulatory SHERWIN PENG . Facility:[facility] Start: 03-25-2022 End: 03-26-[address] DOCTOR SINGH Facility:[facility] Start: 03-18-2022 End: 03-18-[address] BRENDA DO Facility:[facility] Start: 01-16-2022 End: 01-17-2022 ambulatory SEMIAUTOMATIC STITCHER OPERATOR LUZMARIA MOSSPEPE Facility:[facility] Procedures Date Procedure Procedure Detail Performing Clinician Start: 03-04-2024 Esophagogastroduodenoscopy Luzmaria Allen Work Phone: Plan of Treatment Date Care Activity Detail Author Start: 04-27-2024 End: 04-27-2024 Patient encounter procedure 04/27/2024 10:00 AM EST Procedure Visit [facility] [address] [place] [id number] Jina Willingham PA [address] [place] [address] [facility] Start: 04-22-2024 End: 04-22-2025 25-hydroxyvitamin D3 [Mass/volume] in Serum or Plasma Vitamin D 25 hydroxy Lab Routine Psoriasis (CMS/HCC) Expected: 04/22/2024 (Approximate), Expires: 04/22/2025 [facility] Comment on above: Expected: 04/22/2024 (Approximate), Expires: 04/22/2025 Start: 04-22-2024 End: 04-22-2025 CBC W Auto Differential panel - Blood CBC and differential Lab Routine Dizziness and giddiness Expected: 04/22/2024 (Approximate), Expires: 04/22/2025 [facility] Comment on above: Expected: 04/22/2024 (Approximate), Expires: 04/22/2025 Start: 04-22-2024 End: 04-22-2025 Comprehensive metabolic 2000 panel - Serum or Plasma Comprehensive metabolic panel Lab Routine Polydipsia Dizziness and giddiness Expected: 04/22/2024 (Approximate), Expires: 04/22/2025 [facility] Comment on above: Expected: 04/22/2024 (Approximate), Expires: 04/22/2025 Start: 04-22-2024 End: 04-22-2025 Ferritin [Mass/volume] in Serum or Plasma Ferritin Lab Routine Dizziness and giddiness Expected: 04/22/2024 (Approximate), Expires: 04/22/2025 [facility] Comment on above: Expected: 04/22/2024 (Approximate), Expires: 04/22/2025 Start: 04-22-2024 End: 04-22-2025 Hemoglobin A1c/Hemoglobin.total in Blood Hemoglobin A1c Lab Routine Polydipsia Expected: 04/22/2024 (Approximate), Expires: 04/22/2025 [facility] Work Phone: Comment on above: Expected: 04/22/2024 (Approximate), Expires: 04/22/2025 Start: 04-22-2024 End: 04-22-2025 Insulin, random Insulin, random Lab Routine Polydipsia Dizziness and giddiness Expected: 04/22/2024 (Approximate), Expires: 04/22/2025 [facility] Comment on above: Expected: 04/22/2024 (Approximate), Expires: 04/22/2025 Start: 04-22-2024 End: 04-22-2025 Iron + transferrin + TIBC Iron + transferrin + TIBC Lab Routine Dizziness and giddiness Expected: 04/22/2024 (Approximate), Expires: 04/22/2025 [facility] Comment on above: Expected: 04/22/2024 (Approximate), Expires: 04/22/2025 Start: 04-22-2024 End: 04-22-2025 Thyroid peroxidase and thyroglobulin antibodies Thyroid peroxidase and thyroglobulin antibodies Lab Routine Other fatigue Expected: 04/22/2024 (Approximate), Expires: 04/22/2025 [facility] Comment on above: Expected: 04/22/2024 (Approximate), Expires: 04/22/2025 Start: 04-22-2024 End: 04-22-2025 Thyrotropin [Units/volume] in Serum or Plasma TSH Lab Routine Other fatigue Expected: 04/22/2024 (Approximate), Expires: 04/22/2025 [facility] Comment on above: Expected: 04/22/2024 (Approximate), Expires: 04/22/2025 Start: 04-22-2024 End: 04-22-2025 Thyroxine (T4) free [Mass/volume] in Serum or Plasma T4, free Lab Routine Other fatigue Expected: 04/22/2024 (Approximate), Expires: 04/22/2025 [facility] Comment on above: Expected: 04/22/2024 (Approximate), Expires: 04/22/2025 Start: 04-22-2024 End: 04-22-2025 Urinalysis complete panel - Urine Urinalysis with reflex microscopic (clean catch) Lab Routine Dizziness and giddiness Expected: 04/22/2024 (Approximate), Expires: 04/22/2025 [facility] Comment on above: Expected: 04/22/2024 (Approximate), Expires: 04/22/2025 Start: 04-22-2024 End: 04-22-2024 Patient encounter procedure 04/22/2024 1:00 PM EST Office Visit [facility] [address] [place] [address] Luzmaria Allen NP [address] [place] [address] Internal derangement of right knee (Primary Dx); Overweight (BMI 25.0-29.9) [facility] Comment on above: Internal derangement of right knee (Primary Dx); Overweight (BMI 25.0-29.9) Start: 04-01-2024 End: 04-01-2025 MR Knee - right WO contrast MR knee right wo IV contrast Imaging Routine Internal derangement of right knee Expected: 04/01/2024 (Approximate), Expires: 04/01/2025 [facility] Comment on above: Expected: 04/01/2024 (Approximate), Expires: 04/01/2025 Start: 04-01-2024 End: 04-01-2025 XR Knee - right 3 Views XR knee 3 views right Imaging Routine Internal derangement of right knee Expected: 04/01/2024, Expires: 04/01/2025 [facility] Work Phone: Comment on above: Expected: 04/01/2024 , Expires: 04/01/2025 Start: 04-01-2024 End: 04-01-2024 Patient encounter procedure 04/01/2024 9:00 AM EST Office Visit [facility] [address] [place] [id number] Luzmaria Allen NP [address] [place] [address] Overweight (BMI 25.0-29.9) (Primary Dx) [facility] Comment on above: Overweight (BMI 25.0 -29.9) (Primary Dx) Start: 03-04-2024 [facility] Patient Education Eosinophilic esophagitis Know your Meds [facility] Work Phone: Immunizations Immunization Date Immunization Notes Care Provider Fa cili 01-01-2022 meningococcal B vacc ine, recombinant, OMV, adjuvanted Luzmaria Kyaz DELIVERY DEPARTMENT SUPERVISOR Work Phone: [facility] 11-27-2021 meningococcal B vacc ine, recombinant, OMV, adjuvanted Luzmaria Aichholz DELIVERY DEPARTMENT SUPERVISOR Work Phone: [facility] 11-27-2021 Meningococcal Polysaccharide A,C,Y,W-135 TT Conjugate Luzmaria Tiffany DELIVERY DEPARTMENT SUPERVISOR Work Phone: [facility] 12-31-2016 hepatitis A vaccine, pediatric/adolescent dosage, 2 dose schedule Luzmaria Kyaz DELIVERY DEPARTMENT SUPERVISOR Work Phone: [facility] 11-12-2016 meningococcal polysaccharide (groups A, C, Y and W-135) diphtheria toxoid conjugate vaccine (MCV4P) Luzmaria Leblancadrianne DELIVERY DEPARTMENT SUPERVISOR Work Phone: [facility] 11-12-2016 tetanus toxoid, redu shonda diphtheria toxoid, and acellular pertussis vaccine, adsorbed Luzmaria Isaholz DELIVERY DEPARTMENT SUPERVISOR Work Phone: [facility] 12-13-2009 Diphtheria, tetanus toxoids and acellular pertussis vaccine, and poliovirus vaccine, inactivated Luzmaria Deanaholz DELIVERY DEPARTMENT SUPERVISOR Work Phone: [facility] 12-13-2009 hepatitis A vaccine, pediatric/adolescent dosage, 2 dose schedule Luzmaria Kyaz DELIVERY DEPARTMENT SUPERVISOR Work Phone: [facility] 12-13-2009 measles, mumps, rube lla, and varicella virus vaccine Luzmaria Deanaholz DELIVERY DEPARTMENT SUPERVISOR Work Phone: [facility] 05-31-2005 diphtheria, tetanus toxoids and acellular pertussis vaccine, unspecified formulation Luzmaria Deanaholz DELIVERY DEPARTMENT SUPERVISOR Work Phone: [facility] 05-31-2005 haemophilus influenz ae type b vaccine, conjugate unspecified formulation Luzmaria Aicholz DELIVERY DEPARTMENT SUPERVISOR Work Phone: [facility] 05-31-2005 pneumococcal conjuga te vaccine, 7 valent Luzmaria Aicholz DELIVERY DEPARTMENT SUPERVISOR Work Phone: [facility] 01-07-2005 measles, mumps and r ubella virus vaccine Luzmaria Aichholz DELIVERY DEPARTMENT SUPERVISOR Work Phone: [facility] 01-07-2005 varicella virus vaccine Luzmaria Aichholz DELIVERY DEPARTMENT SUPERVISOR Work Phone: [facility] 2004 diphtheria, tetanus toxoids and acellular pertussis vaccine, unspecified formulation Luzmaria Aichholz DELIVERY DEPARTMENT SUPERVISOR Work Phone: [facility] 2004 haemophilus influenz ae type b conjugate and Hepatitis B vaccine Luzmaria Aichholz DELIVERY DEPARTMENT SUPERVISOR Work Phone: [facility] 2004 pneumococcal conjuga te vaccine, 7 valent Luzmaria Aichholz DELIVERY DEPARTMENT SUPERVISOR Work Phone: [facility] 2004 poliovirus vaccine, inactivated Luzmaria Aichholz DELIVERY DEPARTMENT SUPERVISOR Work Phone: [facility] 2004 diphtheria, tetanus toxoids and acellular pertussis vaccine, unspecified formulation Luzmaria Aichholz DELIVERY DEPARTMENT SUPERVISOR Work Phone: [facility] 2004 haemophilus influenz ae type b conjugate and Hepatitis B vaccine Luzmaria Aichholz DELIVERY DEPARTMENT SUPERVISOR Work Phone: [facility] 2004 pneumococcal conjuga te vaccine, 7 valent Luzmaria Aichholz DELIVERY DEPARTMENT SUPERVISOR Work Phone: [facility] 2004 poliovirus vaccine, inactivated Luzmaria Aichholz DELIVERY DEPARTMENT SUPERVISOR Work Phone: [facility] 2004 diphtheria, tetanus toxoids and acellular pertussis vaccine, unspecified formulation Luzmaria Aichholz DELIVERY DEPARTMENT SUPERVISOR Work Phone: [facility] 2004 haemophilus influenz ae type b conjugate and Hepatitis B vaccine Luzmaria Aichholz DELIVERY DEPARTMENT SUPERVISOR Work Phone: [facility] 2004 pneumococcal conjuga te vaccine, 7 valent Luzmaria Aichholz DELIVERY DEPARTMENT SUPERVISOR Work Phone: [facility] 2004 poliovirus vaccine, inactivated Luzmaria Aichholz DELIVERY DEPARTMENT SUPERVISOR Work Phone: [facility] Payers Date Payer Category Payer Self-pay 2022 Medicaid [id number] 2022 Medicaid [id number] 2022 Medicaid [id number] 2004 Unknown [id number] 2.16.84 [id number] 2004 Unknown [id number] 2.16.84 [id number] 2004 Unknown [id number] 2.16.84 [id number] 2004 Unknown [id number] 2.16.84 [id number] 2004 Unknown [id number] 2.16.84 [id number] 1981 Unknown [id number] 2.16.84 [id number] 1981 Unknown [id number] 2.16.84 [id number] 1981 Unknown [id number] 2.16.84 [id number] 1959 Unknown [id number] Unknown [id number] [id number] Social History Date Type Detail Facility Start: 09-16-2023 End: 03-04-2024 Tobacco smoking status ILIS Never smoked tobacco [facility] Start: 09-16-2023 Tobacco use and exposure Smokeless tobacco non-user [facility] Start: 10-21-2023 End: 04-22-2024 Alcoholic beverage intake Lifetime non-drinker (finding) [facility] Start: 09-16-2023 End: 10-21-2023 History of Social function [facility] Start: 09-16-2023 End: 10-21-2023 Tobacco use panel [facility] Start: 09-16-2023 Alcohol Comment caffine: energ y drinks 1 weekly [facility] Start: 2004 Sex assigned at Not on file [facility] Start: 2004 Sex Assigned At Female F [facility] Start: 03-04-2024 Sex Female (finding[facility] Goals Date Patient Goal Desired Activity /State Clinical Notes 01-16-2022 to 04-22-2024 Luzmaria Allen NP - 04/22/2024 1:42 PM Carlotta Allen NP - 04/22/2024 1:41 PM Carlotta Allen NP - 04/22/2024 1:41 PM Carlotta Allen NP - 04/22/2024 1:41 PM ESTPatient Instructions Note Date & Type Note Facility 04-22-2024 History of Presen t illness Narrative Associated Problem(s): Psoriasis (CMS/HCC) Recently started on skyrizi Continue with derm Associated Problem(s): Polydipsia Will check for diabetes Associated Problem(s): Other fatigue Check labs Associated Problem(s): Anxiety and depression (CMS/HCC) Continue with psych provider Associated Problem(s): Dizziness and giddiness Will check labs Differentials; low blood sugar, anxiety, Pt states in the last couple weeks she has had a couple days were she is feeling shaky even if she eats or not. Pt states that when feeling this way her mom had checked her blood sugar after eating a donut and drinking orange juice 1.5-2hrs and her blood sugar was 105 Pt also wants mention that everytime she eats even after a full meal she is always hungry about a half hr after eating she has also noticed increased thirst Pt is also urination more frequently Pt states she wants to check her iron because when she goes to stand up too fast almost every time she stands up that she feels dizzy and light headed and blurred vision Pt states she has been very fatigue recently even with 8-9hrs of sleep nightly Images from the original note were not included. Nubia Donaldson is a 19 y.o. female presents with chief complaint of Knee Injury HPI: Pt states in the last couple weeks she has had a couple days were she is feeling shaky even if she eats or not. Pt states that when feeling this way her mom had checked her blood sugar after eating a donut and drinking orange juice 1.5-2hrs and her blood sugar was 105 Pt also wants mention that everytime she eats even after a full meal she is always hungry about a half hr after eating she has also noticed increased thirst Pt is also urination more frequently Pt states she wants to check her iron because when she goes to stand up too fast almost every time she stands up that she feels dizzy and light headed and blurred vision Pt states she has been very fatigue recently even with 8-9hrs of sleep nightly Periods monthly: 5 days, no excessive bleeding, does have family hx of DM, she also has psoriasis which is autoimmune and would increase her risk for other autoimmune SUBJECTIVE: MEDICATIONS: Current Outpatient Medications Medication Instructions albuterol HFA 90 mcg/act inhaler 2 puffs, Every 6 hours PRN clobetasol (Temovate) 0.05 % cream [place]-Smoothe/FS Body 0.01 % external oil fluticasone (Flonase) 50 MCG/ACT nasal spray 2 sprays, Daily pantoprazole (PROTONIX) 40 mg, 2 times daily sertraline (ZOLOFT) 120 mg, Daily sertraline (ZOLOFT) 25 mg, Daily Skyrizi Pen 150 MG/ML solution auto-injector ALLERGIES: Allergies Allergen Reactions Brompheniramine GI intolerance Phenylephrine GI intolerance [id number]-[id number] Hives Pseudoephedrine GI intolerance Sulfamethoxazole Hives Trimethoprim Hives REVIEW OF SYMPTOMS: Review of Systems Constitutional: Positive for fatigue. Negative for appetite change, chills and fever. HENT: Negative for congestion, ear pain and sore throat. Eyes: Negative for pain, discharge, redness and visual disturbance. Respiratory: Negative for cough, shortness of breath and wheezing. Cardiovascular: Negative for chest pain, palpitations and leg swelling. Gastrointestinal: Negative for abdominal pain, blood in stool, constipation, diarrhea, nausea and vomiting. Genitourinary: Negative for difficulty urinating, dysuria and frequency. Musculoskeletal: Positive for arthralgias. Negative for back pain, joint swelling and myalgias. Skin: Positive for rash. Negative for wound. Neurological: Positive for dizziness. Negative for tremors, seizures, syncope and headaches. Psychiatric/Behavioral: Negative for behavioral problems, self-injury and suicidal ideas. The patient is nervous/anxious. Hematological: Does not bruise/bleed easily. Endocrine: Negative for polydipsia, polyphagia and polyuria. Allergic/Immunologic: Negative for environmental allergies and food allergies. PAST MEDICAL HISTORY History reviewed. No pertinent past medical history. History reviewed. No pertinent surgical history. family history is not on file. OBJECTIVE: Visit Vitals BP 108/78 (BP Location: Left arm, Patient Position: Sitting, BP Cuff Size: Adult long) Pulse 76 Temp 98 F (Temporal) Resp 18 Ht 5' 10 Wt 200 lb SpO2 98% BMI 28.70 kg/m Smoking Status Never BSA 2.12 m Physical Exam Vitals and nursing note reviewed. Constitutional: General: She is not in acute distress. Appearance: Normal appearance. HENT: Head: Normocephalic and atraumatic. Right Ear: Tympanic membrane, ear canal and external ear normal. Left Ear: Tympanic membrane, ear canal and external ear normal. Nose: Nose normal. Mouth/Throat: Mouth: Mucous membranes are moist. Pharynx: No oropharyngeal exudate or posterior oropharyngeal erythema. Eyes: Extraocular Movements: Extraocular movements intact. Conjunctiva/sclera: Conjunctivae normal. Cardiovascular: Rate and Rhythm: Normal rate and regular rhythm. Pulses: Normal pulses. Heart sounds: Normal heart sounds. Pulmonary: Effort: Pulmonary effort is normal. Breath sounds: Normal breath sounds. No wheezing or rales. Abdominal: General: Bowel sounds are normal. There is no distension. Palpations: Abdomen is soft. There is no mass. Tenderness: There is no abdominal tenderness. Musculoskeletal: General: Normal range of motion. Cervical back: Normal range of motion and neck supple. Right lower leg: No edema. Left lower leg: No edema. Skin: General: Skin is warm and dry. Capillary Refill: Capillary refill takes 2 to 3 seconds. Findings: No rash (psoriasis). Neurological: General: No focal deficit present. Mental Status: She is alert and oriented to person, place, and time. Psychiatric: Mood and Affect: Mood normal. Behavior: Behavior normal. Thought Content: Thought content normal. Judgment: Judgment normal. ASSESSMENT AND PLAN: Follow up in about 4 weeks (around 05/20/2024) for Recheck. Problem List Items Addressed This Visit Anxiety and depression (CMS/HCC) Continue with psych provider Overweight (BMI 25.0-29.9) Internal derangement of right knee Tried conservative treatments with NSAID/rest/KT tape, activity modification Suspect meniscal tear Check xray: completed Check MRI: still waiting on approval/scheduling Refer to ortho if pathology Psoriasis (CMS/HCC) Recently started on skyrizi Continue with derm Relevant Orders Vitamin D 25 hydroxy Polydipsia Will check for diabetes Relevant Orders Hemoglobin A1c Insulin, random Comprehensive metabolic panel Dizziness and giddiness - Primary Will check labs Differentials; low blood sugar, anxiety, Relevant Orders Insulin, random CBC and differential Iron + transferrin + TIBC Ferritin Comprehensive metabolic panel Urinalysis with reflex microscopic (clean catch) Other fatigue Check labs Relevant Orders TSH T4, free Thyroid peroxidase and thyroglobulin antibodies Associated Problem(s): Internal derangement of right knee Tried conservative treatments with NSAID/rest/KT tape, activity modification Suspect meniscal tear Check xray: completed Check MRI: still waiting on approval/scheduling Refer to ortho if pathology documented in this encounter [facility] 04-22-2024 Instructions Luzmaria Allen NP - 04/22/2024 1:00 PM EST Wait for [facility] to call about MRI: [phone], ext [phone] Check labs More protein for each meal, fluids, slow position changes as well documented in this encounter [facility] 04-01-2024 History of Presen t illness Narrative Associated Problem(s): Psoriasis (CMS/HCC) Recently started on skyrizi No skin lesion around right knee Associated Problem(s): Internal derangement of right knee Tried conservative treatments with NSAID/rest/KT tape, activity modification Suspect meniscal tear Check xray Check MRI Refer to ortho if pathology Fu in 3 weeks Pt injured her right knee during twirling where her foot stayed in place and her knee continued to rotate while doing her twirling routine. She states she is unable to straighten the leg/knee unless she is standing. Pt does not put all her weight on her right knee otherwise she is in a lot of pain. The area is closer to the inner area of her right knee. Pt states the knee did not pop it also has not popped since. Pt also has used a knee brace for support or PT tape however the knee has also gotten worse since nov. No discoloration however it does swell up at times. She uses ice and and elevation. Pt uses tylenol only when she can not walk on her leg. She is done for with twirling for right now it starts back up in august. She has also had issues with her knee giving out or locking up when going up stairs. Pt did not seek er or urgent care with this knee issue Images from the original note were not included. Nubia Donaldson is a 19 y.o. female presents with chief complaint of Knee Pain and Knee Injury HPI: Pt injured her right knee during twirling where her foot stayed in place and her knee continued to rotate while doing her twirling routine. She states she is unable to straighten the leg/knee unless she is standing. Pt does not put all her weight on her right knee otherwise she is in a lot of pain. The area is closer to the inner area of her right knee. Pt states the knee did not pop it also has not popped since. Pt also has used a knee brace for support or PT tape however the knee has also gotten worse since nov. No discoloration however it does swell up at times. She uses ice and and elevation. Pt uses tylenol only when she can not walk on her leg. She is done for with twirling for right now it starts back up in august. She has also had issues with her knee giving out or locking up when going up stairs. Pt did not seek er or urgent care with this knee issue Knee Pain The incident occurred more than 1 week ago. The injury mechanism was a twisting injury. The pain is present in the right knee. The pain is severe. The pain has been Constant since onset. Associated symptoms include an inability to bear weight and a loss of motion. Pertinent negatives include no numbness. She reports no foreign bodies present. The symptoms are aggravated by movement and weight bearing. She has tried acetaminophen, NSAIDs, rest and ice for the symptoms. The treatment provided mild relief. SUBJECTIVE: MEDICATIONS: Current Outpatient Medications Medication Instructions albuterol HFA 90 mcg/act inhaler 2 puffs, Every 6 hours PRN clobetasol (Temovate) 0.05 % cream [place]-Smoothe/FS Body 0.01 % external oil fluticasone (Flonase) 50 MCG/ACT nasal spray 2 sprays, Daily loratadine (Claritin) 10 MG tablet TAKE 2 TABS DAILY FOR THE FIRST 5 DAYS, THEN TAKE 1-2 NEEDED FOR ALLERGY SYMPTOMS THEREAFTER. pantoprazole (PROTONIX) 40 mg, 2 times daily Risankizumab-rzaa (SKYRIZI SC) Subcutaneous sertraline (ZOLOFT) 120 mg, Daily ALLERGIES: Allergies Allergen Reactions Brompheniramine GI intolerance Phenylephrine GI intolerance Hrkrjaany-Pvyklsui-Fl Hives Pseudoephedrine GI intolerance Sulfamethoxazole Hives Trimethoprim Hives REVIEW OF SYMPTOMS: Review of Systems Constitutional: Negative for appetite change, chills and fever. HENT: Negative for congestion, ear pain and sore throat. Eyes: Negative for pain, discharge, redness and visual disturbance. Respiratory: Negative for cough, shortness of breath and wheezing. Cardiovascular: Negative for chest pain, palpitations and leg swelling. Gastrointestinal: Negative for abdominal pain, blood in stool, constipation, diarrhea, nausea and vomiting. Genitourinary: Negative for difficulty urinating, dysuria and frequency. Musculoskeletal: Negative for arthralgias, back pain, joint swelling and myalgias. Skin: Negative for rash and wound. Neurological: Negative for dizziness, tremors, seizures, syncope, numbness and headaches. Psychiatric/Behavioral: Negative for behavioral problems, self-injury and suicidal ideas. The patient is not nervous/anxious. Hematological: Does not bruise/bleed easily. Endocrine: Negative for polydipsia, polyphagia and polyuria. Allergic/Immunologic: Negative for environmental allergies and food allergies. PAST MEDICAL HISTORY History reviewed. No pertinent past medical history. History reviewed. No pertinent surgical history. family history is not on file. OBJECTIVE: Visit Vitals BP 110/78 (BP Location: Left arm, Patient Position: Sitting, BP Cuff Size: Adult long) Pulse 81 Temp 98 F (Temporal) Resp 18 Ht 5' 10 Wt 197 lb Comment: with coat on SpO2 96% BMI 28.27 kg/m Smoking Status Never BSA 2.1 m Physical Exam Vitals and nursing note reviewed. Constitutional: General: She is not in acute distress. Appearance: Normal appearance. HENT: Head: Normocephalic and atraumatic. Right Ear: External ear normal. Left Ear: External ear normal. Nose: Nose normal. Mouth/Throat: Mouth: Mucous membranes are moist. Eyes: Extraocular Movements: Extraocular movements intact. Conjunctiva/sclera: Conjunctivae normal. Cardiovascular: Rate and Rhythm: Normal rate and regular rhythm. Pulses: Normal pulses. Heart sounds: Normal heart sounds. Pulmonary: Effort: Pulmonary effort is normal. Breath sounds: Normal breath sounds. Abdominal: General: Bowel sounds are normal. There is no distension. Palpations: Abdomen is soft. There is no mass. Tenderness: There is no abdominal tenderness. Musculoskeletal: Cervical back: Normal range of motion and neck supple. Right lower leg: No edema. Left lower leg: No edema. Comments: Right knee: no definite laxity, +mc ro and pain No pain with valgas/varus stress Calf soft, normal ankle exam Skin: General: Skin is warm and dry. Capillary Refill: Capillary refill takes 2 to 3 seconds. Findings: No rash (psoriasis skin lesions). Neurological: General: No focal deficit present. Mental Status: She is alert and oriented to person, place, and time. Psychiatric: Mood and Affect: Mood normal. Behavior: Behavior normal. Thought Content: Thought content normal. Judgment: Judgment normal. ASSESSMENT AND PLAN: Follow up in about 4 weeks (around 04/29/2024) for Recheck. Problem List Items Addressed This Visit Overweight (BMI 25.0-29.9) - Primary Internal derangement of right knee Tried conservative treatments with NSAID/rest/KT tape, activity modification Suspect meniscal tear Check xray Check MRI Refer to ortho if pathology Fu in 3 weeks Relevant Orders XR knee 3 views right MR knee right wo IV contrast Psoriasis (CMS/HCC) Recently started on skyrizi No skin lesion around right knee documented in this encounter [facility] 04-01-2024 Instructions Luzmaria Allen NP - 04/01/2024 9:00 AM EST Check xray Will see if insurance approves MRI, if yes will order at [facility] If no response in 2 weeks call here documented in this encounter [facility] 03-04-2024 Procedure note [facility] 02-12-2024 Evaluation note Authored February 12, 2024 8:23am 19-year-old female referred to the GI clinic for evaluation of heartburn. + Chronic heartburn f controlled with pantoprazole 20 mg daily + intermittent dysphagia. Will arrange for EGD. Will refill pantoprazole 20 mg daily Antireflux precautions were discussed [facility] Work Phone: [phone] 537-334712-05-2022 NotePROCEDURE: XR HAND RT MIN 3V, XR WRIST RT MIN 3 V HISTORY: Pain ; right wrist and hand pain, greatest by thumb after hitting punching bag COMPARISON: None. FINDINGS: BONES:No fracture, acute abnormality, or significant arthropathy. SOFT TISSUES:No visible soft tissue swelling. EFFUSION:None visible. OTHER: Negative. IMPRESSION: 1. No acute bone abnormality. Electronically authenticated by: BRENDA DO Date: 2022-03-18 08:50[facility]12-05-2022 NotePROCEDURE: XR HAND RT MIN 3V, XR WRIST RT MIN 3 V HISTORY: Pain ; right wrist and hand pain, greatest by thumb after hitting punching bag COMPARISON: None. FINDINGS: BONES:No fracture, acute abnormality, or significant arthropathy. SOFT TISSUES:No visible soft tissue swelling. EFFUSION:None visible. OTHER: Negative. IMPRESSION: 1. No acute bone abnormality. Electronically authenticated by: BRENDA DO Date: 2022-03-18 08:50[id number] NotePROCEDURE: XR ELBOW LT MIN 3 VIEWS HISTORY: Pain of left elbow joint since injury 5 days ago COMPARISON: None. FINDINGS: BONES:No fracture, acute abnormality, or significant arthropathy. SOFT TISSUES:No visible soft tissue swelling. EFFUSION:None visible. OTHER: Negative. IMPRESSION: 1. Normal examination. Electronically authenticated by: BRENDA DO Date: 2022-01-16 11:30[facility]* Diagnosis Gastroesophageal reflux disease without esophagitis Esophageal reflux documented in this encounter [facility] HealthcareEvaluation note* Author Félix White [facility] Authored February 12, 2024 9 :23am 19-year-old female referred to the GI clinic for evaluation of heartburn. + Chronic heartburn f controlled with pantoprazole 20 mg daily + intermittent dysphagia. Will arrange for EGD. Will refill pantoprazole 20 mg daily Antireflux precautions were discussed [facility] Work Phone: Evaluation note* Diagnosis Chronic RUQ pain- Primary Abdominal pain, right upper quadrant Gastroesophageal reflux disease without esophagitis Esophageal reflux Overweight (BMI 25.0-29.9) Overweight Anxiety and depression (CMS/HCC) Gastroesophageal reflux disease without esophagitis- Primary Esophageal reflux Chronic RUQ pain Abdominal pain, right upper quadrant Overweight (BMI 25.0-29.9) Overweight Overweight (BMI 25.0-29.9)- Primary Overweight Internal derangement of right knee Psoriasis (CMS/HCC) Other psoriasis documented in this encounter [facility] HealthcareEvaluation note* Diagnosis Chronic RUQ pain- Primary Abdominal pain, right upper quadrant Gastroesophageal reflux disease without esophagitis Esophageal reflux Overweight (BMI 25.0-29.9) Overweight Anxiety and depression (CMS/HCC) Gastroesophageal reflux disease without esophagitis- Primary Esophageal reflux Chronic RUQ pain Abdominal pain, right upper quadrant Overweight (BMI 25.0-29.9) Overweight Overweight (BMI 25.0-29.9)- Primary Overweight Internal derangement of right knee Psoriasis (CMS/HCC) Other psoriasis Dizziness and giddiness- Primary Internal derangement of right knee Overweight (BMI 25.0-29.9) Overweight Polydipsia Other fatigue Psoriasis (CMS/HCC) Other psoriasis Anxiety and depression (CMS/HCC) documented in this encounter [facility] Summary Purpose Family History Relationship Condition Age at Onset Recorded Date/T jacki maternal grandmother Hypertension Unknown Heart disease Unknown paternal grandfather Diabetes mellitus Unknown grandparent Malignant neoplasm Unknown Relationship Condition Age at Onset Recorded Date/T jacki maternal grandmother Hypertension Unknown Heart disease Unknown paternal grandfather Diabetes mellitus Unknown grandparent Malignant neoplasm Unknown paternal grandmother Malignant neoplasm of breast Unkn own Advance Directives Advance Directive Response Recorded Date/ Time Advance [...] and content) DATE CREATED AUTHOR 06/22/2022 [facility] pital DATE CREATED AUTHOR AUTHOR'S ORGANIZ ATION 03/16/2024 [facility] DATE CREATED AUTHOR AUTHOR'S ORGANIZ ATION 04/04/2024 [facility] EPIC Reason for Visit (unrecogniz ed section and content) Reason Comments Med Refill Reason Comments Knee Pain Knee Injury Reason Comments Knee Injury Care Teams (unrecognized sec tion and content) 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 Relationship Specialty Start Date End Date Javier Gutierrez MD [address] [place] [phone] PCP - General Family Medicine 09/16/23 Luzmaria Allen NP [address] [place] [phone] Referring Physician Nurse Practitioner 11/06/22 Team Status: [...] Other Provider Active Start: March 04, 2024 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 Relationship Specialty Start Date End Date Javier Gutierrez MD [address] [place] [phone] PCP - General Family Medicine 09/16/23 Luzmaria Allen NP [address] [place] [phone] Referring Physician Nurse Practitioner 11/06/22 Cosmetology Professor Relationship Specialty Start Date End Date Javier Gutierrez MD [address] [place] [phone] PCP - General Family Medicine 09/16/23 Luzmaria Allen NP [address] [place] [phone] Referring Physician Nurse Practitioner 11/06/22 Cosmetology Professor Relationship Specialty Start Date End Date Javier Gutierrez MD [address] [place] [phone] PCP - General Family Medicine 09/16/23 Luzmaria Allen NP [address] [place] [phone] Referring Physician Nurse Practitioner 11/06/22 Cosmetology Professor Relationship Specialty Start Date End Date Javier Gutierrez MD [address] [place] [phone] PCP - General Family Medicine 09/16/23 Luzmaria Allen NP [address] [place] [phone] Referring Physician Nurse Practitioner 11/06/22 Goals (unrecognized section and content) Goals may [...] BE BASED ON THE PRIMARY CLINICAL RECORDS. [facility]. provides no warranty or guarantee of the accuracy or completeness of information in this document.
[2024-04-24 11:17] LABS: Basophils Percent Auto 0.7 % (0.2-2.0); Eosinophils Absolute Auto 0.1 10^3/uL (0.0-0.7); Eosinophils Percent Auto 0.8 % (0.9-7.0); Hematocrit 37.9 % (36.0-48.0); Hemoglobin 12.4 g/dL (12.0-16.0); Immature Granulocytes Abs Auto 0.02 10^3/uL (0.00-0.03); Immature Granulocytes Pct Auto 0.3 % (0.0-0.5); Lymphocytes Absolute Auto 1.6 10^3/uL (1.2-3.8); Lymphocytes Percent Auto 26.6 % (20.5-60.0); Mean Corpuscular HGB Conc 32.7 g/dL (29.9-35.2); Mean Corpuscular Hemoglobin 27.2 pg (26.7-34.0); Mean Corpuscular Volume 83.1 fL (81.0-99.0); Mean Platelet Volume 10.8 fL (9.5-13.5); Monocytes Absolute Auto 0.5 10^3/uL (0.3-0.8); Monocytes Percent Auto 8.7 % (1.7-12.0); Neutrophils Absolute Auto 3.8 10^3/uL (1.4-6.5); Neutrophils Percent Auto 62.9 % (43.0-75.0); Platelet Count 264 10^3/uL (150-450); Red Blood Count 4.56 10^6/uL (4.20-5.40); Red Cell Distribution Width 12.6 % (11.0-15.0); White Blood Count 6.1 10^3/uL (4.0-11.0)
[2024-04-24 11:32] LABS: Estimated Average Glucose 105 mg/dL; Glycohemoglobin A1C 5.3 % (4.5-6.2)
[2024-04-24 11:42] LABS: Bilirubin Urine NEGATIVE (NEGATIVE); Blood Urine TRACE-I (NEGATIVE); Clarity Urine CLEAR (CLEAR); Color Urine LT. YELLOW (YELLOW); Glucose Urine UA NEGATIVE (NEGATIVE); Ketones Urine NEGATIVE (NEGATIVE); Leukocyte Esterase Urine NEGATIVE (NEGATIVE); Nitrite Urine NEGATIVE (NEGATIVE); Protein Urine NEGATIVE (NEG/TRACE); Specific Gravity Urine 1.015 (1.005-1.025); pH Urine 7.5 (5.0-9.0)
[2024-04-24 12:09] LABS: Urine Microscopic Indicated YES
[2024-04-24 12:10] LABS: Bacteria Urine TRACE #/HPF (NONE SEEN); Cast Seen? NONE SEEN #/LPF (NONE SEEN); Crystals Seen? None Seen #/HPF (None Seen); Mucus Urine NONE SEEN (NONE SEEN); RBC Urine 0-2 #/HPF (0-2); Squamous Epithelial Cell Urine RARE #/LPF (NONE/RARE); WBC Urine NONE SEEN #/HPF (NONE SEEN)
[2024-04-24 12:11] LABS: Percent Iron Saturation 9.7 %
[2024-04-24 12:36] LABS: Free T4 0.82 ng/dL (0.76-1.46)
[2024-04-24 15:49] LABS: Alanine Aminotransferase 20 U/L (14-59); Albumin Globulin Ratio 0.9; Albumin Level 3.8 g/dL (3.4-5.0); Alkaline Phosphatase 77 U/L (46-116); Anion Gap 11.8; Aspartate Amino Transferase 16 U/L (15-37); BUN Creatinine Ratio 12.8; Calcium 9.2 mg/dL (8.5-10.1); Carbon Dioxide 30.7 mmol/L (21.0-32.0); Chloride 103 mmol/L (98-107); Estimated GFR (African America >60 (>=60 mL/min/1.73m^2); Estimated GFR (Non-African Ame >60 (>=60 mL/min/1.73m^2); Globulin 4.3 g/dL; Glucose 73 mg/dL (74-106); Potassium 3.5 mmol/L (3.5-5.1); Sodium 142 mmol/L (136-145); Thyroid Stimulating Hormone 3.024 uIU/mL (0.358-3.740); Total Protein 8.1 g/dL (6.4-8.2)
[2024-04-24 22:40] LABS: Bilirubin Total 0.4 mg/dL (0.2-1.0)
[2024-04-25 07:08] LABS: Thyroid Peroxidase (TPO) Ab 19 IU/mL (0-34); Transferrin 329 mg/dL (192-364)
[2024-04-26 15:07] LABS: Thyroglobulin Antibody <1.0 IU/mL (0.0-0.9)
== END 2024-04-24 10:44 | disposition home or self-care (01) ==
LOC: LAB 10:44
PROVIDERS: PCP Nurse Practitioner; Visit Provider Nurse Practitioner
DX: R63.1 Polydipsia (principal); R42 Dizziness and giddiness; R53.83 Other fatigue; L40.9 Psoriasis, unspecified
CPT/HCPCS: 36415; 80053; 81001; 82306; 82728; 83036; 83540; 83550; 84439; 84443; 84466; 85025; 86376; 86800

== ENCOUNTER 2024-05-07 12:58 | Outpatient (OUT) | payer MEDICAID, SELFPAY ==
--- NOTE | 2024-05-07 13:11 | MR_ITS ---
The [address] [address] Patient Name: MAG SANTOS MRN: [id number] date: 2005 Sex: F Assigned Patient Location: MRI Current Patient Location: MRI Accession/Order Number: [id number] Exam Date: 05/07/2024 13:45 Report Date: 05/07/2024 14:52 At the request of: YEHUDA DELGADO Procedure: MR knee RT wo con EXAM: MR knee RT wo con REASON FOR EXAM: Internal Derangement Of Right Knee. TECHNIQUE: Multiplanar, multisequence imaging of the right knee was performed without contrast COMPARISON: Radiographs 04/01/2024. FINDINGS: Study mildly degraded by motion. Laterally, the iliotibial band, fibular collateral ligament, popliteus tendon and biceps tendon are intact. The ACL is intact. The lateral meniscus demonstrates grossly normal morphology and signal without tear. The lateral articular cartilage appears intact. Medially, the medial collateral ligament is intact. The PCL is intact. The medial meniscus demonstrates normal morphology with some globular intrasubstance signal involving the body posterior horn junction, which does not meet MRI criteria for tear. No displaced meniscal fragment, meniscal extrusion or perimeniscal cyst. The medial articular cartilage appears intact. The extensor mechanism is intact. The patellofemoral cartilage is intact. The bone marrow signal is without fracture. No joint effusion. Regional musculature is without muscle strain or tendon tear. MR/MR knee RT wo con IMPRESSION: 1. Study mildly degraded by motion. 2. Intact menisci, cruciate and collateral ligaments Electronically authenticated by: ARNALDO ROMERO Date: 05/07/2024 14:52
== END 2024-05-07 12:59 | disposition home or self-care (01) ==
LOC: MRI 12:58
PROVIDERS: PCP Nurse Practitioner; Visit Provider Nurse Practitioner
DX: M23.91 Unspecified internal derangement of right knee (principal)
CPT/HCPCS: 73721

== ENCOUNTER 2024-10-07 20:41 | Emergency (ER) | payer MEDICAID, SELFPAY ==
--- OUTSIDE RECORDS SUMMARY | 2024-08-16 09:00 | XMS_ITS | Continuity of Care Document ---
Author [facility] Address [address] [facility] [place] [address] Phone Care Team Providers Care Estimator Printing Plate Making Name Role Phone Vannesa DO, Navin Unavailable Unavailab le Allergies, Adverse Reactions, Alerts Substance Reaction Status Criticality PSEUDOEPHEDRINE HCL extreme vomiting Active No I nformation PHENYLEPHRINE HCL extreme vomiting Active No Inf ormation BROMPHENIRAMINE MALEATE extreme vomiting Active No Information trimethoprim HivesHives Active No Information sulfamethoxazole HivesHives Active No Informat ion Medications Medication Instructions Dosage Effective Dates (start - stop) Status Comments sertraline 100 mg tablet take 1 tablet by oral route every day 100 MG - Active Zoloft 25 mg tablet take 1 tablet by ora l route every day 25 MG - Active Vitamin D3 125 mcg (5,000 unit) tablet - Active pantoprazole 20 mg tablet,delayed release take 2 tablet by oral route every day 40 MG - Active albuterol sulfate HFA 90 mcg/actuation aerosol inhaler inhale 2 puff by inhalation route every 4 - 6 hours as needed as needed 180 MCG - Active Procedures Procedure Date OFFICE/OUTPATIENT VISIT, EST OFFICE/OUTPATIENT VISIT, EST OFFICE/OUTPATIENT VISIT, EST OFFICE/OUTPATIENT VISIT, EST PSYTX PT&/FAM W/E&M 30 MIN OFFICE/OUTPATIENT VISIT, EST VOID TICKET OFFICE/OUTPATIENT VISIT, EST OFFICE/OUTPATIENT VISIT, EST SARS-COV-2 COVID19 W/OPTIC GLUCOSE BLOOD TEST OFFICE/OUTPATIENT VISIT, EST OFFICE/OUTPATIENT VISIT, EST STREP A ASSAY W/OPTIC OFFICE/OUTPATIENT VISIT, EST OFFICE/OUTPATIENT VISIT, EST OFFICE/OUTPATIENT VISIT, EST PSYCH DIAG EVAL W/MED SRVCS OFFICE/OUTPATIENT VISIT, EST OFFICE/OUTPATIENT VISIT, NEW Advance Directives Directive Yes / No Effective Date File Name No Information Encounters Encounter Description Practice Location Reason(s) For Visit Diagnoses Date Provider Providers Copied on Encounter OFFICE/OUTPA TIENT VISIT, [facility], [address] [place] [address], [id number] , [place] tel:[phone] [facility] No Information Vannesa Holden. [address], [place], [id number], [place]. tel:[phone] Referring Provider: Navin Granado, [address] [place], [address] . 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 [address], [place], [id number], [place]. tel:[phone] Referring Provider: Saloni ÁLVAREZ ENGRAVINGS POLISHER FLEET MECHANIC, [address] [place], [address] . tel:[phone] OFFICE/OUTPA TIENT VISIT, [facility], [address] [place] [address], [id number] , [place] tel:[phone] [facility] No Information Vannesa Holden. [address], [place], [place], [id number], [place]. tel:[phone] Referring Provider: Navin Vannesa, [address], [place], [address] . tel:[phone] OFFICE/OUTPA TIENT VISIT, [facility], [address] [place] [address] [address], [place], [place], [id number] , [place] [phone] [facility] No Information 4 Vannesa Navin. [address], [place], [place], [id number], [place]. tel:[phone] Referring Provider: Navin Vannesa, [address] [place], [address] . tel:[phone] OFFICE/OUTPA TIENT VISIT, [facility], [address] [place] [address] [address], [place], [place], [id number] , [place] [phone] [facility] Cold symptoms (chief complaint) Acute non-recurrent pansinusitisAcu te dysfunction of both eustachian tubes 4 Kevin Payan. [address], [place], [place], [id number], [place]. tel:[phone] Referring Provider: Ora Brown PA-C, [address] [place], [address] . tel:[phone] [facility], [address] [place] [address] [address], [place], [place], [id number] , [place] [phone] [facility] musculoskeletal pain (chief complaint)left without being seen (chief complaint) No Information 4 Flaquito Peñaloza. [address], [place], [place], [id number], [place]. tel:[phone] Referring Provider: Anabela Huddleston PA-C, [address], [place], [address] . tel:[phone] OFFICE/OUTPA TIENT VISIT, [facility], [address], [place], [place], [id number] , [place] tel:[phone] [facility] Eye problems (chief complaint) Abrasion of sclera of right eye, initial encounter 4 Curtis [employer]N ENGRA[employer]INGS POLISHER FLEET MECHANIC Slaoni. [address], [place], [place], [id number], [place]. tel:[phone] Referring Provider: Saloni ÁLVAREZ ENGRAVINGS POLISHER FLEET MECHANIC, [address], [place], [address] . tel:[phone] OFFICE/OUTPA TIENT VISIT, [facility], [address] [facility] [address], [place], [place], [id number] , [place] [phone] [facility] No Information 4 Vannesa Holden. [address], [place], [place], [id number], [place]. tel:[phone] Referring Provider: Navin Granado, [address], [place], [address] . tel:[phone] OFFICE/OUTPA TIENT VISIT, [facility], [address], [place], [place], [id number] , [place] tel:[phone] [facility] Cold symptoms (chief complaint) Flu-like symptomsLighthe adednessViral URI with cough 4 Curtis ÁLVAREZ ENGRAVINGS POLISHER FLEET MECHANIC Saloni. [address], [place], [place], [id number], [place]. tel:[phone] Referring Provider: Saloni ÁLVAREZ ENGRAVINGS POLISHER FLEET MECHANIC, [address], [place], [address] . tel:[phone] [facility], [address] [place] [address] Road [address], [place], [place], [id number] , [place] tel:[phone] [facility] band physical (chief complaint) Sports physical 4 Flaquito Peñaloza. [address], [place], [place], [id number], [place]. tel:[phone] Referring Provider: Anabela Huddleston PA-C, [address], [place], [address] . tel:[phone] OFFICE/OUTPA TIENT VISIT, [facility], [address], [place], [place], [id number] , [place] tel:[phone] [facility] No Information 4 Vannesa Holden. [address], [facility] [place], [id number], [place]. tel:[phone] Referring Provider: Navin Granado, [address], [place], [address] . tel:[phone] OFFICE/OUTPA TIENT VISIT, [facility], [address] [place] [address] Road [address], [place], [place], [id number] , [place] tel:[phone] [facility] rash (chief complaint)Eye problems (chief complaint) Sore throatAcute urticariaAcute seasonal allergic rhinitis 4 Curtis MSN ENGRAVINGS POLISHER FLEET MECHANIC Saloni. [address], [place], [place], [id number], [place]. tel:[phone] Referring Provider: Saloni Acevedo MSN ENGRA[employer]INGS POLISHER FLEET MECHANIC, [address], [place], [address] . tel:[phone] OFFICE/OUTPA TIENT VISIT, [facility], [address] [place] [address] [address], [place], [place], [id number] , [place] tel:[phone] [facility] No Information 4 Vannesa Holden. [address], [place], [place], [id number], [place]. tel:[phone] Referring Provider: Navin Granado, [address], [place], [address] . tel:[phone] OFFICE/OUTPA TIENT VISIT, [facility], [address] [place] [address] Road [address], [place], [place], [id number] , [place] tel:[phone] [facility] No Information 4 Vannesa Holden. [address], [place], [place], [id number], [place]. tel:[phone] Referring Provider: Navin Granado, [address] [place], [address] . tel:[phone] PSYCH DIAG EVAL W/MED [facility], [address] [place] [address] [address], [place], [place], [id number] , [place] [phone] [facility] No Information 3 Vannesa Holden. [address], [place], [place], [id number], [place]. tel:[phone] Referring Provider: Navin Granado, [address] [place], [address] . tel:[phone] OFFICE/OUTPA TIENT VISIT, [facility], [address] [place] [address] [address], [place], [place], [id number] , [place] [phone] [facility] Chest pain (chief complaint) Costochondritis , acute 3 Rivas Wetzel. [address], [id number], [place]. tel:[phone] Referring Provider: Damari Hathaway, [address] [place], [address] . tel:[phone] OFFICE/OUTPA TIENT VISIT, [facility], [address] [place] [address] [address], [place], [place], [id number] , [place] [phone] [facility] Cold symptoms (chief complaint) Viral URIEncounter for laboratory testing for COVID-19 virus 3 Kevin Payan. [address], [place], [place], [id number], [place]. tel:[phone] Referring Provider: Ora Brown PA-C, [address], [place], [address] . tel:[phone] Family History Family Member Type Diagnosis Age At Onset Maternal grandmother Problem Hypertension Payers Payer name Insurance type Covered alliance party ID [place](sAshley [place] [employer] MC [id number] Social History Type Description Quantity Date Captured Comments Sex Female Smoking Status No Information Chief Complaint And Reason For Visit No Information Reason For Referral Reason For Referral No Information Plan Of Treatment Date Type Action Status Appointment Nubia Donaldson BOOKED Patient Education Viral Respirat ory Infection: Care Instructions completed Future Order: Lab Order Throat Gulshan lira ([id number]), Ordered on: Ordered History Of Present Illness Encounter Date Complaint History Of Prese nt Illness Nose bleeds The patient pres ents with a nosebleed that began 1 hour ago. The bleeding appears to be from both nostrils. The patient describes it as an intermittent drip and a steady stream. Bleeding is not related to facial trauma. The bleeding is improved with pinching nose with good relief and rest with good relief. The patient is also experiencing nausea. Additional information: Nose bleed started at 11am pt states it just stopped approximately 1220 started in Rt nostril but states both were bleeding. Pt states small clots after blowing nose. Comments: Magui ramos presents with complaints of a single episode of epistaxis that occurred today. States that episode began at 11:00 a.m., and stopped completely at 12:20 p.m.. Patient states it was stopped on its own with minimal intervention. Patient put some pressure on her nose and blew her nose gently to clear some of the clots. Patient denies any fall, trauma, or injury to her nose. She denies any current URI or viral like symptoms. She does endorse seasonal allergies. She does have a mild history of nosebleeds. Patient denies any history of bleeding disorders or severe epistaxis. Patient reports taking ibuprofen once about a week ago but denies any frequent use of ibuprofen or aspirin. She was not on any blood thinning medication. Patient was slightly iron deficient in has a low vitamin-D, she recently started supplementation per her primary care provider. Cold symptoms Onset: 1 Week. T he problem has worsened. Aggravating factors include cold air. Aggravated by additional comments: touching ear. Associated symptoms include headache, myalgia, nasal congestion, otalgia and sinus pressure. Pertinent negatives include chills/rigors, cough, dyspnea, fatigue, fever or pharyngitis. Additional information: dizziness with fluid in ear with yellow drainage to RT ear. left without being seen musculoskeletal pain Location: [facility] [place]. Comments: Magui ramos presents with 48 hour onset of right eye irritation. Patient states that she was wearing a trial pair of contacts and is concerned that 1 of them is stuck in her right eye or that she scratched her right eye. Patient endorses redness, pain, increased tearing, and crusting of the right eye. Patient states that she has some increased tearing and blurry vision as well. Patient has tried to flush her eye out with saline without much relief of her symptoms. Patient states that it feels scratchy and she does endorse a foreign body sensation. Eye problems Onset: 2 Days. S ymptoms located at left conjunctiva, left globe and right sclera. Discomfort is described as dull pain, FB sensation and itchy. Symptoms are associated with contact lens use. Symptoms are not associated with concurrent URI symptoms, exposure to pink eye, patient being a , recent eye drop use, recent insect bite, recent swimming and recent trauma. Denies aggravating factors. Denies relieving factors. Associated symptoms include blurred vision, left eye pain, itching, red/purple color around eye, rubbing eye and tearing. Pertinent negatives include ear pain, fever, headache, rhinorrhea, sore throat, vision loss and vomiting. Additional information: contact has been stuck since Friday. Thinks she scratched eye. Comments: Magui ramos presents with URI like symptoms that began 48 hours ago. Patient endorses congestion, cough, sore throat that they rates 5/10, nausea without emesis, body aches, headache, fatigue, generalized weakness, lightheadedness, sinus and head pressure, hot flashes, and chills. Denies any diarrhea, shortness for breath, wheezing, or chest pain. Patient has been taking [id number] cough and cold medication but it was not taken any medicine today. Patient was not taken any ibuprofen or Tylenol today but does report taking 1 dose yesterday. Cold symptoms Onset: 2 Days. P ain level: 10/21. The problem has worsened. Symptoms are associated with history of asthma. Symptoms are relieved by decongestants. Associated symptoms include cough, headache, myalgia, otalgia, pharyngitis, postnasal drainage and sinus pressure. Pertinent negatives include chills/rigors, fever or nasal congestion. Additional information: Patient states she feels dizzy, shaky, and weak. 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 No other concerns at this time. Paperwork provided. Eye problems Onset: 1 Day. As sociated symptoms include eye pain, itching, nasal congestion, sore throat and tearing. Pertinent negatives include vision loss. Additional information: Pt states the skin around her upper left eyelid is painful. Comments: Magui ramos presents with complaints of a hive-like rash that occurred this morning as well as some left eye swelling, redness, and discomfort that also happened this morning. States that she is noticed some seasonal allergy exacerbation that began at the beginning of the week Friday or Friday. This morning at approximately 11:45 a.m. she noticed an itchy, burning, red, splotchy, hot, and hive-like rash on her bilateral arms and legs. States that it lasted for about 45 minutes when she was walking to class, when she got to class the rash resolved on its own. She did not take any medication to treat the rash. She denies any exposure to new irritants, allergens,, environments, chemicals, detergents, or soaps, or lotions. Patient states that she does have a his psoriasis with heat induced hives. States this was not exactly similar to prior exacerbations. Denies any shortness a breath, rash on her face, throat swelling, lip swelling, or tongue swelling.Patient also complains that when she woke up this morning her left eye was swollen slightly and painful. Denies any vision changes, injury to the eye, foreign body sensation, or drainage from the eye. States that the symptom has also resolved completely.Patient does report a history of allergy as well as seasonal allergies. She states that her allergies and asthma are well-controlled on medications. She has not been using an oral antihistamine recently but has in the past. Does endorse a slight sore throat from postnasal drainage. Denies any significant runny nose, cough, shortness for breath, wheezing, nausea, vomiting, fever, or chest pain. Has not taken any medication prior to arrival for symptoms. rash The patient pres ents for rash. This episode began 1 hour ago. Affected area(s) include both legs. The patient describes the affected area(s) as itchy and red. The symptoms are not associated with contact with chemicals, contact with plants, new perfume, new skin soaps/lotions, rash began before age 1, recent medicines, recent travel and stress. Associated symptoms include erythema (skin), painful rash and pruritus. Additional information: Pt states she was walking to class and her legs became red, hive like and were burning and itching. Pt states it lasted for 45 mins and went away. Pt states on friday her legs were itchy and she took benadryl. Comments: Magui ramos reports symptoms were consistent with costochondritis and then anginal-type source. Her symptoms are well localized and she is able to point to them with 1 finger. The location of her symptoms are at the sternal costal margins along both the left and right side of her sternum. They are aggravated with a full inspiration. She is not short of breath and has no dyspnea on exertion and no other anginal type symptoms. She has no current concerns or symptoms consistent with pulmonary embolism nor DVT. Chest pain The patient pres ents with a complaint of Chest pain. The symptoms began 1 day ago and began gradually. The problem occurs constantly. The patient rates the severity of the Chest pain as moderate. The patient also complains of dyspnea. The patient denies diaphoresis, fatigue, nausea, palpitations and vomiting. Relevant history for this patient excludes excessive alcohol, diabetes, drug use, hyperlipidemia, hypertension, obesity, medication(s), personal history of coronary artery disease or recent travel. The symptoms are aggravated by inspiration. Interventions the patient has tried have not provided any relief. The Chest pain is associated with headache. The patient denies any dependent edema, dysphagia, generalized weakness, hemoptysis, lightheadedness, malaise, myalgia, nocturia or nocturnal dyspnea. There has been no prior diagnostics/screening. Additional information: rates pain 11/21. no personal cardiac hx. Was here 2 weeks ago for cold s/s. PCR covid test negative. Cold symptoms Onset: 3 days ag o. Associated symptoms include cough, nasal congestion, sore throat and loss of smell. Pertinent negatives include dyspnea. Additional information: States possible exposure to COVID.COVID test completed. Comments: Patien rachel has had sinus symptoms for 2 days, today is day 3. Yesterday started using nasal decongestant nasal spray- this morning awoke with loss of smell. Functional Status Date Functional Assessmen t No Information Instructions Date Instruction Additional Infor danuta Nosebleeds or epista xis are very common and usually not concerning. The most common causes include nose picking, dry air, seasonal allergies, trauma, or acute illness.Most often nosebleeds stop on their own.Your nosebleed resolved prior to you arriving today.If you experience a nosebleed it is recommended:That you sit down while bending forward a little at the waist. Do not lie down or till your head back. This can cause the blood to drain down your throat.Pinched the soft area towards the bottom of your nose below the bone. Do not emr trainer the bridge of your nose between your eyes. Press on both sides.Squeeze your eyes and no shut for at least 15 minutes. Do not released the pressure until the time as up.If you follow all of the steps above and your nose keeps bleeding repeat the steps. If your bleeding has not decreased after repeating the steps, bleeding has lasted more than 30 minutes to 1 hour without improvement, or has worsened at all please seek further medical attention. You may also use nasal sprays such as Afrin, but do not use for more than 3 days consecutively.Saline nasal spray as needed to keep your mucous membranes moist.Please avoid blowing your nose. Avoid picking your nose.Keep the air in your home moist with a humidifier.Please seek further medical attention and go to the emergency room if you notice that your nosebleed makes it hard to breathe, make sure turned very pale, you experience fatigue or confusion, happens right after his surgical procedure, occurs after serious injury, or UR on any blood thinning medication such as Coumadin, Eliquis, daily aspirin, or Plavix.Follow up with your primary care provider as needed. Related to Nosebleed Advised to take anti biotics as prescribed. Take with food to avoid GI upset, and finish all 7 days. Encouraged to take a probiotic along with antibiotic to promote normal GI missy. Recommended to take over the counter non-drowsy antihistamine (cetirizine, loratadine) and fluticasone nasal spray for symptomatic relief. Encouraged to take Tylenol and or ibuprofen as needed for sinus pain/pressure. Drink plenty of fluids. Return to health center if symptoms persist or worsen, or new symptoms occur. Related to Acute non-recurrent pansinusitis Discussed that there is fluid behind both ear drums. Treatment is aimed at drying up fluid and reducing inflammation in sinuses and eustachian tube to help facilitate drainage. Medications consist of antihistamine, decongestant, steroid nasal sprays and systemic steroids.Treatment Regimen:1. non-drowsy antihistamine (loratadine, cetirizine)2. decongestant (Sudafed)3. fluticasone nasal spray4. prednisone 50 mg once daily in the morning with food Related to Acute dysfunction of both eustachian tubes Scleral abrasion is a scratch on the white part of your eye. It can cause redness, swelling, irritation, tearing, and infection. There was no contact or foreign body noted on your exam.Your eye was dyed and examined under black light.Use antibiotic eye drops as directed. Complete entire course even if your symptoms improve. You may also use lubricating saline eye drops for comfort. You can take OTC antihistamines like Claritin or Berkley for eye itching or watering. You may also use Benadryl or antihistamine eyedrops such as Zaditor drops.Discard any contacts or makeup you may have used recently, and avoid wearing contacts until symptoms completely resolve. Wash any bedlinen or objects that your may have come in to contact with thoroughly in hot water. Return if your symptoms worsen or do not improve, you may also follow up with your PCP or Eye doctor.Please go directly to the ED if you experience any sudden loss of vision, or significant redness/warmth/swelling. Related to Abrasion of sclera of right eye, initial encounter Upper respiratory in fections are acute infections of the throat and upper respiratory tract that are very common in adults and children that cause inflammation. URIs are commonly viral and do not require antibiotics. Rapid COVID was negative in the office today. Your symptoms are likely viral nature. There was no evidence of bacterial infection on your exam.Symptoms include sore throat, congestion, postnasal drip, cough, fever, nausea, vomiting, fatigue, and ear fullness. Viruses are self-limiting. Treatment is focused on symptom management.Utilize Tylenol and Ibuprofen as needed for pain and fever. You may take up to 800 mg of Ibuprofen every 8 hours, and 1000 mg of Tylenol every 6 hours in alternation. You were given a dose of ibuprofen approximately 2:00 p.m. Recommend Delsym for any cough. You report being allergic to decongestants, see your provided with a short course of oral steroids to help with her inflammation. Take the prednisone in the morning with food.Recommended combination of Claritin and Flonase to treat any allergy like symptoms.You may also use, throat lozenges, warm salt water gargles, and chloraseptic spray as needed. Ensure adequate rest and oral fluid intake. Avoid sharing food/drinks. Change your toothbrush.Current CDC guidelines recommend that you avoid contact with others until you are fever free for 24 hours off of fever reducing medication and experience improvement in your symptoms. Please continue to mask until your symptoms resolve when around others. You were provided with a note for school/work.Return to [facility] as needed, follow up with PCP.Go to ER if you experience severe pain, fever, chest pain, SOB, nausea, vomiting, or dirrhea. Related to Viral URI with cough Your rapid strep was negative in the office today. Your symptoms are likely secondary to seasonal allergies versus a viral illness.A backup throat culture was sent out to ensure accuracy. You will be notified of results and treated appropriately if any positive bacterial growth is noted. Related to Sore throat Your rash is likely secondary to seasonal allergies, chronic psoriasis, or stress induced hives.Your symptoms had completely resolved upon arrival in the urgent care today.Please continue to monitor your symptoms. You may utilize Benadryl or other ebgi-wcw-pdnwgkg antihistamines such as Claritin for any rash.You may also use topical anti-itch lotion as needed.Continue your asthma regimen as directed by your PCP. Continue your psoriasis regimen as directed by your PCP. Follow up with your PCP as needed.If you notice any significant shortness for breath, wheezing, difficulty breathing, lip/tongue/throat swelling, chest pain, or rash that has not resolve with treatment please go directly to the ER for further evaluation, management, and treatment. Related to Acute urticaria Seasonal allergies a re likely the cause of your symptoms. Comments symptoms include sore throat, runny nose, itchy and watery eyes, and cough.Your symptoms could also be caused by a viral upper respiratory infection. Viral upper respiratory infections is an acute infection of the throat and upper respiratory tract that is very common in adults and children that causes inflammation.Please continue use of daily antihistamines such as Flonase, Berkley, or Claritin.Treatment will be focused on symptom management.Utilize Tylenol and Ibuprofen as needed for pain and fever. You may take up to 800 mg of Ibuprofen every 8 hours, and 1000 mg of Tylenol every 6 hours in alternation. You may also use, throat lozenges, warm salt water gargles, and chloraseptic spray as needed. Ensure adequate rest and oral fluid intake. Avoid sharing food and drinks. Return to urgent care if symptoms persist, you may also follow up with your PCP. Go to the ED if you experience and difficulty swallowing, have significant hoarseness, or difficulty breathing. Related to Acute seasonal allergic rhinitis COVID PCR obtained t gavi, these results should return in 24-48 hours. Isolate until they return. If positive, you must quarantine- first day of symptoms is day 0 and you must isolate until day 5 of symptoms. You can leave isolation on day 6, as long as your symptoms have improved and you have been fever free for 24 hours without medication. You must wear a mask for days 6-10.Recommended taking ibuprofen alternating acetaminophen for headache, body aches, sore throat, fevers, chills. If nasal congestion is bothersome, take antihistamine (cetirizine, loratadine) and decongestant (Sudafed). Fluticasone nasal spray should help with congestion and sinus pressure. Delsym DM is helpful for alleviating cough. If sudden shortness of breath or chest pain occurs, go to E.R.ADVISED PATIENT TO STOP USING NASAL DECONGESTANT SPRAY- this is likely the cause of her loss of smell Related to Viral URI Assessments Type Assessment Date No Information Patient Care Teams Name Effective Dates (start - stop) Status Members No Information
[2024-10-07 20:45] VITALS: BP 133/80; PULSE 113; TEMP 37; O2SAT 100; BMI 28.3
--- OUTSIDE RECORDS SUMMARY | 2024-10-07 20:48 | XMS_ITS | Encounter Summary ---
Author Organization [facility] Address [address] [facility] [place] [address] Care Team Providers Care Gravity Prospecting Observer Name Role Phone Luzmaria Allen CLERK SECRETARY Unavailable [phone] Javier Gutierrez MD Primary Care Provider Encounter Details Date Type Department Care Team (Late st Contact Info) Description 05/07/2024 Clinisync Result Encounter [facility] External Department Unsolicited Luzmaria Allen, CLAUDETTE [address] [place] [address] Social History Tobacco Use Types Packs/Day Years Used Date Smoking Tobacco: Never Smokeless Tobacco: Never Alcohol Use Standard Drinks/Week Comments Never 0 (1 standard drink = 0.6 oz pure alcohol) caffine: energy drinks 1 weekly PHQ-2 Answer Date Recorded Patient Health Questionnaire-2 Score 0 09/16/2023 Comments No Sex and Gender Information Value Date Recorded Sex Assigned at Not on file Legal Sex Female 11:47 PM EDT Gender Identity Not on file Sexual Orientation Not on file documented as of this encounter Plan of Treatment Upcoming Encounters Date Type Department Care Team (Late st Contact Info) Description 01/12/2025 10:00 AM EDT Office Visit [facility] [address] [facility] [place] [address] Stephanie Ho NP [address] [place] [address] [place] [address] documented as of this encounter Procedures Procedure Name Priority Date/Time Associated Diagnosis Comments MR KNEE RT WO CON 05/07/2024 2:5 2 PM EST documented in this encounter Results * MR KNEE RT WO CON (05/07/2024 2:52 PM EST) Anatomical Region Laterality Modality Other 05/07/2024 2:52 PM EST Narrative 05/07/2024 2:54 PM EST The [address] [address] Magnetic Resonance Report Signed Patient: NUBIA SANTOS MR#: [id number] : 2005 Acct:[id number] Age/Sex: 19 / F ADM Date: 05/07/24 Loc: MRI Attending Dr: Luzmaria Allen CLERK SECRETARY Ordering Physician: Luzmaria Allen NP Date of Service: 05/07/24 Procedure(s): MR knee RT wo con Accession Number(s): [id number] cc: Luzmaria Allen NP [address] [address] Patient Name: NUBIA SANTOS MRN: [id number] date: 2005 Sex: F Assigned Patient Location: MRI Current Patient Location: MRI Accession/Order Number: [id number] Exam Date: 05/07/2024 13:45 Report Date: 05/07/2024 14:52 At the request of: LUZMARIA ALLEN Procedure: MR knee RT wo con EXAM: MR knee RT wo con REASON FOR EXAM: Internal Derangement Of Right Knee. TECHNIQUE: Multiplanar, multisequence imaging of the right knee was performed without contrast COMPARISON: Radiographs 04/01/2024. FINDINGS: Study mildly degraded by motion. Laterally, the iliotibial band, fibular collateral ligament, popliteus tendon and biceps tendon are intact. The ACL is intact. The lateral meniscus demonstrates grossly normal morphology and signal without tear. The lateral articular cartilage appears intact. Medially, the medial collateral ligament is intact. The PCL is intact. The medial meniscus demonstrates normal morphology with some globular intrasubstance signal involving the body posterior horn junction, which does not meet MRI criteria for tear. No displaced meniscal fragment, meniscal extrusion or perimeniscal cyst. The medial articular cartilage appears intact. The extensor mechanism is intact. The patellofemoral cartilage is intact. The bone marrow signal is without fracture. No joint effusion. Regional musculature is without muscle strain or tendon tear. MR/MR knee RT wo con IMPRESSION: 1. Study mildly degraded by motion. 2. Intact menisci, cruciate and collateral ligaments Electronically authenticated by: ARNALDO ROMERO Date: 05/07/2024 14:52 Dictated By: Arnaldo Romero M.D. Signed By: 05/07/24 1454 DD/ 1452 TD/TT: Industrial Yard Brake Coupler: Procedure Note Radiology, Radiologist, MD - 05/07/2024 [place] [address] Magnetic Resonance Report Signed Patient: NUBIA SANTOS CMR#: [id number] : 2005Acct:[id number] Age/Sex: 19 / FADM Date: 05/07/24 Loc: MRI Attending Dr: Luzmaria Allen NP Ordering Physician: Luzmaria Allen NP Date of Service: 05/07/24 Procedure(s): MR knee RT wo con Accession Number(s): [id number] cc: Luzmaria Allen NP [place] [address] Patient Name: NUBIA SANTOS MRN: [id number] date: 2005 Sex: F Assigned Patient Location: MRI Current Patient Location: MRI Accession/Order Number: [id number] Exam Date: 05/07/2024 13:45 Report Date: 05/07/2024 14:52 At the request of: LUZMARIA ALLEN Procedure: MR knee RT wo con EXAM: MR knee RT wo con REASON FOR EXAM: Internal Derangement Of Right Knee. TECHNIQUE: Multiplanar, multisequence imaging of the right knee wasperformed without contrast COMPARISON: Radiographs 04/01/2024. FINDINGS: Study mildly degraded by motion. Laterally, the iliotibial band, fibular collateral ligament, popliteustendon and biceps tendon are intact. The ACL is intact. The lateral meniscus demonstrates grossly normal morphology and signal without tear. Thelateral articular cartilage appears intact. Medially, the medial collateral ligament is intact. The PCL is intact. The medial meniscus demonstrates normal morphology with some globular intrasubstance signal involving the body posterior horn junction, whichdoes not meet MRI criteria for tear. No displaced meniscal fragment, meniscal extrusion or perimeniscal cyst. The medial articular cartilage appearsintact. The extensor mechanism is intact. The patellofemoral cartilage is intact. The bone marrow signal is without fracture. No joint effusion. Regional musculature is without muscle strain or tendon tear. MR/MR knee RT wo con IMPRESSION: 1. Study mildly degraded by motion. 2. Intact menisci, cruciate and collateral ligaments Electronically authenticated by: ARNALDO ROMERO Date: 05/07/2024 14:52 Dictated By: Arnaldo Romero M.D. Signed By:05/07/24 1454 DD/ 1452 TD/TT: Industrial Yard Brake Coupler: Luzmaria Allen NP [facility] Final Result documented in this encounter Visit Diagnoses Not on filedocumented in this encounter Care Teams Gravity Prospecting Observer Relationship Specialty Start Date End Date Javier Gutierrez MD [address] [place] [phone] PCP - General Family Medicine 09/16/23 Luzmaria Allen NP [address] [place] [address] Referring Physician Nurse Practitioner 11/06/22 documented as of this encounter
--- OUTSIDE RECORDS SUMMARY | 2024-10-07 20:48 | XMS_ITS | Encounter Summary ---
Author Organization [facility] Address [address] [place] [address] Care Team Providers Care Oncology Research Rn Name Role Phone DeanajoserasTiffany fritzrobel WILKINS Unavailable [phone] Javier Gutierrez MD Primary Care Provider Encounter Details Date Type Department Care Team (Late Contact Info) Description 03/08/2024 Orders Only [facility] [address] [place] [address] Félix White MD [address] [facility] [address] [place] [address] Social History Tobacco Use Types Packs/Day Years Used Date Smoking Tobacco: Never Smokeless Tobacco: Never Alcohol Use Standard Drinks/Week Comments Never 0 (1 standard drink = 0.6 oz pure alcohol) caffine: energy drinks 1 weekly PHQ-2 Answer Date Recorded Patient Health Questionnaire-2 Score 0 09/16/2023 Comments Unknown Sex and Gender Information Value Date Recorded Sex Assigned at Not on file Legal Sex Female 11:47 PM EDT Gender Identity Not on file Sexual Orientation Not on file documented as of this encounter Plan of Treatment Upcoming Encounters Date Type Department Care Team (Late Contact Info) Description 01/12/2025 10:00 AM EDT Office Visit [facility] [address] [place] [address] [place] [address] Stephanie Ho NP [address] [place] [address] [place] [address] documented as of this encounter Procedures Procedure Name Priority Date/Time Associated Diagnosis Comments MISCELLANEOUS LAB TEST Routine 03/04/2024 9:40 AM EST documented in this encounter Results * - Miscellaneous Test (03/04/2024 9:40 AM EST) us Félix White MD LAB BLOOD ORDERABLES Final Resul t documented in this encounter Visit Diagnoses Not on filedocumented in this encounter Care Teams Oncology Research Rn Relationship Specialty Start Date End Date Javier Gutierrez MD [address] [place] [address] PCP - General Family Medicine 09/16/23 Luzmaria Allen NP [address] [place] [address] Referring Physician Nurse Practitioner 11/06/22 documented as of this encounter
--- OUTSIDE RECORDS SUMMARY | 2024-10-07 20:48 | XMS_ITS | Encounter Summary ---
Author Organization [facility] Address [address] [place] [facility] [place] [address] Care Team Providers Care Garnett Mechanic Name Role Phone Javier Gutierrez MD Primary Care Provider [phone] Luzmaria Allen HOME MISSION WORKER Unavailable [phone] Javier Gutierrez MD Primary Care Provider Encounter Details Date Type Department Care Team (Late st Contact Info) Description 04/15/2023 Orders Only [facility] [address] [place] [address] Luzmaria Allen, CLAUDETTE [address] [place] [address] Social History Tobacco Use Types Packs/Day Years Used Date Smoking Tobacco: Never Assessed Comments Unknown Sex and Gender Information Value Date Recorded Sex Assigned at Not on file Legal Sex Female 11:47 PM EDT Gender Identity Not on file Sexual Orientation Not on file documented as of this encounter Plan of Treatment Upcoming Encounters Date Type Department Care Team (Late st Contact Info) Description 01/12/2025 10:00 AM EDT Office Visit [facility] [address] [facility] [place] [address] Stephanie Ho NP [address] [facility] [place] [address] documented as of this encounter Procedures Procedure Name Priority Date/Time Associated Diagnosis Comments ELECTROCARDIOGRAM REPORT Routine 023 2:43 PM EST documented in this encounter Results * Electrocardiogram Report (04/07/2023 2:43 PM EST) us Luzmaria Allen HOME MISSION WORKER IN CLINIC/BEDSIDE ORDERABLES Fi nal Result documented in this encounter Visit Diagnoses Not on filedocumented in this encounter Care Teams Garnett Mechanic Relationship Specialty Start Date End Date Javier Gutierrez MD PCP - General Family Medicine 11/06/22 09/15/23 Javier Gutierrez MD [address] [place] [address] PCP - General Family Medicine 09/16/23 Luzmaria Allen NP [address] [place] [address] Referring Physician Nurse Practitioner 11/06/22 documented as of this encounter
--- OUTSIDE RECORDS SUMMARY | 2024-10-07 20:48 | XMS_ITS | Clinical Summary ---
Author Organization [facility] Address [address] [place] [address] Care Team Providers Care Leather Dresser Name Role Phone Luzmaria Allen NP Unavailable [phone] Javier Gutierrez MD Primary Care Provider [phone] Allergies Active Allergy Reactions Criticality Noted Date Comments Brompheniramine GI intolerance 12/23/2022 Phenylephrine GI intolerance 12/23/2022 Ixxatfyvi-Pvnvwekn-Xg Hives 09/16/2023 Pseudoephedrine GI intolerance 12/23/2022 Sulfamethoxazole Hives 12/23/2022 Trimethoprim Hives 12/23/2022 Medications albuterol HFA 90 mcg/act inhaler Inhale 2 puffs every 6 (six) hours if needed for wheezing or shortness of breath Active fluticasone (Flonase) 50 MCG/ACT nasal spray Administer 2 sprays into each nostril Daily 3 Active sertraline (Zoloft) 100 MG tablet Take 120 mg by mouth Daily Active clobetasol (Temovate) 0.05 % cream 4 Active [place]-Smoothe/F S Body 0.01 % external oil 4 Active Skyrizi Pen 150 MG/ML solution auto-injector 4 Active sertraline (Zoloft) 25 MG tablet Take 25 mg by mouth Daily 4 Active norethindrone-e thinyl estradiol (Junel FE 05/03) 1-20 MG-MCG tabletIndicatio ns:Uses control Take 1 tablet by mouth Daily for 28 days Take 1 tablet by mouth daily 28 tablet 12 5 Active omeprazole (PriLOSEC) [address] capsuleIndicati ons:Gastroesoph ageal Reflux Disease Take 40 mg by mouth in the morning and 40 mg in the evening. Take before meals. Do not crush or chew.. 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 and she will call to schedule this Heart palpitations 05/31/2024 Assessment & Plan (05/31/2024 4:22 PM EST): Uncertain if related to ferrous sulfate or not Consider holter monitor, pt would like to wait at this time Iron deficiency 04/27/2024 Vitamin D deficiency 04/27/2024 Polydipsia 04/22/2024 Assessment & Plan (04/22/2024 1:41 PM EST): Will check for diabetes Dizziness and giddiness 04/22/2024 Assessment & Plan (04/22/2024 1:41 PM EST): Will check labs Differentials; low blood sugar, anxiety, Other fatigue 04/22/2024 Assessment & Plan (04/22/2024 1:41 PM EST): Check labs Internal derangement of right knee 04/01/2024 Assessment & Plan (04/22/2024 6:49 AM EST): Tried conservative treatments with NSAID/rest/KT tape, activity modification Suspect meniscal tear Check xray: completed Check MRI: still waiting on approval/scheduling Refer to ortho if pathology Assessment & Plan (04/01/2024 9:36 AM EST): Tried conservative treatments with NSAID/rest/KT tape, activity modification Suspect meniscal tear Check xray Check MRI Refer to ortho if pathology Fu in 3 weeks Psoriasis 04/01/2024 Assessment & Plan (04/22/2024 1:42 PM EST): Recently started on skyrizi Continue with derm Assessment & Plan (04/01/2024 9:39 AM EST): Recently started on skyrizi No skin lesion around right knee Atopic dermatitis 11/27/2023 Anxiety and depression 09/16/2023 Assessment & Plan (04/22/2024 1:41 PM EST): Continue with psych provider Assessment & Plan (09/16/2023 9:26 AM EDT): Current dose of sertraline is 100mg Follows with psych Anxiety?? As part of GI?? Mild intermittent asthma without complication Other constipation 09/16/2023 Environmental and seasonal allergies 09/16/2023 Chronic RUQ pain 09/16/2023 Overview (10/21/2023): GBUS: normal 10/06/23 HIDA: EF 41% Assessment & Plan (10/21/2023 2:45 PM EDT): Borderline low end normal Assessment & Plan (09/16/2023 9:25 AM EDT): ER xmas time ??gallbladder Needs US, if neg do HIDA Fu in 4 weeks Gastroesophageal reflux disease without esophagi tis 09/16/2023 Overview (03/05/2024): EGD 03/05/2024 Assessment & Plan (10/21/2023 2:45 PM EDT): Continue PPI and refer to GI Even 1 missed dose of PPI severe symptoms Fu 8 weeks Assessment & Plan (09/16/2023 9:25 AM EDT): Add pantoprazole at 20mg Freq small meals, nothing to eat/drink 2 hours prior to bed Consider EGD?? Overweight (BMI 25.0-29.9) 09/16/2023 Resolved Problems Problem Noted Date Diagnosed Date Resolved Date Obesity (BMI 30-39.9) 09/16/20232023 Immunizations Immunization Administration Dates Next Due DTaP / IPV 12/13/2009 DTaP, Unspecified 05/31/2005, 5,2004,03/07 Hep A, ped/adol, 2 dose 12/31/2016,12/13/2009 HiB, unspecified 05/31/2005 Hib / Hep B 2004,2004,2004 IPV 2004,2004,2004 MMR 01/07/2005 MMRV 12/13/2009 Meningococcal B, Omv 01/01/2022,11/27/2021 Meningococcal MCV4P 11/12/2016 Meningococcal Polysaccharide A,C,Y,W-135 TT Conjugate 11/27/2021 Pneumococcal Conjugate PCV 7 05/31/2005, 2004,2004,03/07 Tdap 11/12/2016 Varicella 01/07/2005 Social History Tobacco Use Types Packs/Day Years Used Date Smoking Tobacco: Never Smokeless Tobacco: Never Tobacco Cessation:Counseling Given: Not Answered Alcohol Use Standard Drinks/Week Comments Never 0 (1 standard drink = 0.6 oz pure alcohol) caffine: energy drinks 1 weekly PHQ-2 Answer Date Recorded Patient Health Questionnaire-2 Score 0 09/16/2023 Comments No Sex and Gender Information Value Date Recorded Sex Assigned at Not on file Legal Sex Female 11:47 PM EDT Gender Identity Not on file Sexual Orientation Not on file Last Filed Vital Signs Vital Sign Reading Time Taken Comments Blood Pressure 122/78 05/31/2024 3:04 PM EST Pulse 99 05/31/2024 3:04 PM EST Temperature 36.9 C (98.5 F) 05/31/2024 3:04 PM EST Respiratory Rate 20 05/31/2024 3:04 PM EST Oxygen Saturation 99% 05/31/2024 3:04 PM EST Inhaled Oxygen Concentration - - Weight 89.5 kg (197 lb 6.4 oz) 05/31/2024 3:04 P M EST Height 177.8 cm (5' 10 ) 04/22/2024 1:09 PM EST Body Mass Index 28.32 04/22/2024 1:09 PM EST Plan of Treatment Upcoming Encounters Date Type Department Care Team (Late st Contact Info) Description 01/12/2025 10:00 AM EDT Office Visit [facility] [address] [facility] [place] [address] Stephanie Ho, CIRCUIT DESIGNER [address] [facility] [place] [address] Health Maintenance Due Date Last Done Comments Influenza Vaccine Discontinued Insurance Care Teams Leather Dresser Relationship Specialty Start Date End Date Javier Gutierrez MD [address] [place] [phone] PCP - General Family Medicine 09/16/23 Luzmaria Allen NP [address] [place] [address] Referring Physician Nurse Practitioner 11/06/22
--- OUTSIDE RECORDS SUMMARY | 2024-10-07 20:48 | XMS_ITS | Encounter Summary ---
Author Organization [facility] Address [address] [place] [address] Care Team Providers Care Machine Coremaker Name Role Phone Luzmaria Allen PATTERN CHANGER AND REPAIRER Unavailable [phone] Javier Gutierrez MD Primary Care Provider [phone] Encounter Details Date Type Department Care Team (Late st Contact Info) Description 10/13/2023 Clinisync Result Encounter [facility] External Department Unsolicited Luzmaria Allen, CLAUDETTE [address] [place] [address] Social History Tobacco Use Types Packs/Day Years [...] EDT Office Visit [facility] [place] [address] Stephanie Ho NP [address] [place] [address] [place] [address] documented as of this encounter Procedures Procedure Name Priority Date/Time Associated Diagnosis Comments NM HEPATOBILIARY SCAN W PHARMACOLOGICAL INTERVENTION 10/13/2023 9:02 AM EDT documented in this encounter Results * NM HEPATOBILIARY SCAN W PHARMACOLOGICAL INTERVENTION (10/13/2023 9:02 AM EDT) Anatomical Region Laterality Modality Radiographic Machelle ging 10/13/2023 9:02 AM EDT Narrative 10/13/2023 9:04 AM EDT [address] [address] Nuclear Medicine Report Signed Patient: NUBIA SANTOS MR#: [id number] : 2005 Acct:[id number] Age/Sex: 18 / F ADM Date: 10/13/23 Loc: [facility] Attending Dr: Luzmaria Allen PATTERN CHANGER AND REPAIRER Ordering Physician: Luzmaria Allen NP Date of Service: 10/13/23 Procedure(s): [place] hepatobiliary w pharm Accession Number(s): [id number] cc: Luzmaria Allen NP [address] [address] Patient Name: NUBIA SANTOS MRN: [id number] date: 2005 Sex: F Assigned Patient Location: [place] Current Patient Location: [place] Accession/Order Number: [id number] Exam Date: 10/13/2023 06:15 Report Date: 10/13/2023 09:02 At the request of: LUZMARIA ALLEN Procedure: NM hepatobiliary w pharm EXAMINATION: NM hepatobiliary w pharm HISTORY: RIGHT UPPER QUADRANT PAIN ; intermittent for several months COMPARISON: Ultrasound right upper quadrant 10/06/2023 TECHNIQUE: Radionuclide hepatobiliary imaging was performed after intravenous injection of 4.9 mCi Tc-99m NUSRAT derivative with sequential acquisitions every 1 minute for one hour. Hepatobiliary imaging with gallbladder ejection fraction analysis was then performed with sequential imaging every 1 minute for 60 minutes following ingestion of 8 oz. Ensure Plus. FINDINGS: LIVER: Normal, prompt and uniform radiotracer uptake and clearing. BILIARY DUCTS: Normal radioisotopic biliary excretion. GALLBLADDER: Normal with no evidence of cystic duct obstruction. INTESTINE: Normal with no evidence of common biliary ductal obstruction. EJECTION FRACTION: 41 % within 60 minutes. (Normal EF > 38%). OTHER: Negative. NM/NM hepatobiliary w pharm IMPRESSION: 1. Normal nuclear medicine HIDA scan. Electronically authenticated by: ÁLVARO WALKER Date: 10/13/2023 09:02 Dictated By: Álvaro Walker M.D. Signed By: 10/13/23903 DD/ 1 TD/TT: Emergency Department: Procedure Note Radiology, Radiologist, MD - 10/13/2023 [place] [address] Nuclear Medicine Report Signed Patient: NUBIA SANTOS CMR#: [id number] : 2005Acct:[id number] Age/Sex: 18 / FADM Date: 10/13/23 Loc: [place] Attending Dr: Luzmaria Allen NP Ordering Physician: Luzmaria Allen NP Date of Service: 10/13/23 Procedure(s): [place] hepatobiliary w pharm Accession Number(s): [id number] cc: Luzmaria Allen NP [place] [id number] Patient Name: NUBIA SANTOS MRN: [id number] date: 2005 Sex: F Assigned Patient Location: [place] Current Patient Location: [place] Accession/Order Number: [id number] Exam Date: 10/13/2023 06:15 Report Date: 10/13/2023 09:02 At the request of: LUZMARIA ALLEN Procedure: NM hepatobiliary w pharm EXAMINATION: NM hepatobiliary w pharm HISTORY: RIGHT UPPER QUADRANT PAIN ; intermittent for several months COMPARISON: Ultrasound right upper quadrant 10/06/2023 TECHNIQUE: Radionuclide hepatobiliary imaging was performed afterintravenous injection of 4.9 mCi Tc-99m NUSRAT derivative with sequential acquisitionsevery 1 minute for one hour. Hepatobiliary imaging with gallbladder ejectionfraction analysis was then performed with sequential imaging every 1 minute for 60 minutes following ingestion of 8 oz. Ensure Plus. FINDINGS: LIVER: Normal, prompt and uniform radiotracer uptake and clearing. BILIARY DUCTS: Normal radioisotopic biliary excretion. GALLBLADDER: Normal with no evidence of cystic duct obstruction. INTESTINE: Normal with no evidence of common biliary ductal obstruction. EJECTION FRACTION: 41 % within 60 minutes. (Normal EF > 38%). OTHER: Negative. NM/NM hepatobiliary w pharm IMPRESSION: 1. Normal nuclear medicine HIDA scan. Electronically authenticated by: ÁLVARO WALKER Date: 10/13/2023 09:02 Dictated By: lÁvaro Walker M.D. Signed By:10/13/23903 DD/ 1 TD/TT: Emergency Department: us Luzmaria Allen NP IMG XR PROCEDURES Final Result documented in this encounter Visit Diagnoses Not on filedocumented in this encounter Care Teams Machine Coremaker Relationship Specialty Start Date End Date Javier Gutierrez MD [address] [place] [address] PCP - General Family Medicine 09/16/23 Luzmaria Allen NP [address] [place] [address] Referring Physician Nurse Practitioner 11/06/22 documented as of this encounter
--- OUTSIDE RECORDS SUMMARY | 2024-10-07 20:48 | XMS_ITS | Encounter Summary ---
Author Organization [facility] Address [address] [facility] [place] [address] Care Team Providers Care Project Planner Name Role Phone Luzmaria Allen MOTORBIKE COURIER Unavailable [phone] Javier Gutierrez MD Primary Care Provider Encounter Details Date Type Department Care Team (Late st Contact Info) Description 04/02/2024 Clinisync Result Encounter [facility] External Department Unsolicited Luzmaria Allen, CLAUDETTE [address] [place] [address] Social History Tobacco Use Types Packs/Day Years [...] EDT Office Visit [facility] [address] [facility] [place] [address] Stephanie Ho NP [address] [place] [address] [place] [address] documented as of this encounter Procedures Procedure Name Priority Date/Time Associated Diagnosis Comments XR KNEE 3 VIEWS RIGHT 04/02/2024 11:58 AM EST documented in this encounter Results * XR knee 3 views right (04/02/2024 11:58 AM EST) Anatomical Region Laterality Modality Lower Extremities, Knee Right [facility] 04/02/2024 11:5 8 AM EST Narrative 04/02/2024 2:46 PM EST The [address] [address] XRay Report Signed Patient: NUBIA SANTOS MR#: [id number] : 2005 Acct:[id number] Age/Sex: 19 / F ADM Date: 04/01/24 Loc: RAD Attending Dr: Luzmaria Allen NP Ordering Physician: Luzmaria Allen NP Date of Service: 04/01/24 Procedure(s): XR knee RT 3V Accession Number(s): [id number] cc: Luzmaria Allen NP [address] [address] Patient Name: NUBIA SANTOS MRN: [id number] date: 2005 Sex: F Assigned Patient Location: RAD Current Patient Location: Accession/Order Number: [id number] Exam Date: 04/01/2024 11:08 Report Date: 04/02/2024 11:58 At the request of: LUZMARIA ALLEN Procedure: XR knee RT 3V PROCEDURE: XR knee RT 3V COMPARISON: None. HISTORY: Internal Derangement Of Right Knee FINDINGS: BONES:No fracture, acute abnormality, or significant arthropathy. SOFT TISSUES:Negative. No visible soft tissue swelling. EFFUSION:None visible. OTHER: Negative. XR/XR knee RT 3V IMPRESSION: No acute radiographic abnormality Electronically authenticated by: MAI MILLER Date: 04/02/2024 11:58 Dictated By: Mai Miller M.D. Signed By: 04/02/24 144 DD/ 57 TD/TT: Silicator: Procedure Note Radiology, Radiologist, - 04/02/2024 [place] [address] XRay Report Signed Patient: NUBIA SANTOS CMR#: [id number] : 2005Acct:[id number] Age/Sex: M Date: 04/01/24 Loc: RAD Attending Dr: Luzmaria Allen NP Ordering Physician: Luzmaria Allen NP Date of Service: 04/01/24 Procedure(s): XR knee RT 3V Accession Number(s): [id number] cc: Luzmaria Allen NP The [place] [address] Patient Name: NUBIA SANTOS MRN: [id number] date: 2005 Sex: F Assigned Patient Location: [facility] Current Patient Location: Accession/Order Number: [id number] Exam Date: 04/01/2024 11:08 Report Date: 04/02/2024 11:58 At the request of: LUZMARIA ALLEN Procedure: XR knee RT 3V PROCEDURE: XR knee RT 3V COMPARISON: None. HISTORY: Internal Derangement Of Right Knee FINDINGS: BONES:No fracture, acute abnormality, or significant arthropathy. SOFT TISSUES:Negative. No visible soft tissue swelling. EFFUSION:None visible. OTHER: Negative. XR/XR knee RT 3V IMPRESSION: No acute radiographic abnormality Electronically authenticated by: MAI MILLER Date: 04/02/2024 11:58 Dictated By: Mai Miller M.D. Signed By:04/02/24 144 DD/ 57 TD/TT: Silicator: Luzmaria Allen MOTORBIKE COURIER IMG XR PROCEDURES Final Result documented in this encounter Visit Diagnoses Not on filedocumented in this encounter Care Teams Project Planner Relationship Specialty Start Date End Date Javier Gutierrez MD [address] [place] [address] PCP - General Family Medicine 09/16/23 Luzmaria Allen NP [address] [place] [address] Referring Physician Nurse Practitioner 11/06/22 documented as of this encounter
--- OUTSIDE RECORDS SUMMARY | 2024-10-07 20:48 | XMS_ITS | Encounter Summary ---
Author Organization [facility] Address [address] [facility] [place] [address] Care Team Providers Care Beading Sawyer Name Role Phone Luzmaria Allen DIRECTOR SECURITY RISK MANAGEMENT Unavailable [phone] Javier Gutierrez MD Primary Care Provider [phone] Encounter Details Date Type Department Care Team (Late st Contact Info) Description 10/06/2023 Clinisync Result Encounter NOMS External Department Unsolicited Luzmaria Allen, CLAUDETTE [address] [place] [address] Social History Tobacco Use Types Packs/Day Years [...] EDT Office Visit [facility] BCP OB [address] [facility] [address] Stephanie Ho NP [address] [place] [address] [place] [address] documented as of this encounter Procedures Procedure Name Priority Date/Time Associated Diagnosis Comments US RIGHT UPPER QUADRANT 10/06/2023 12:37 PM EDT documented in this encounter Results * US RIGHT UPPER QUADRANT (10/06/2023 12:37 PM EDT) Anatomical Region Laterality Modality Other 10/06/2023 12:3 7 PM EDT Narrative 10/06/2023 12:39 PM EDT [address] [address] Ultrasound Report Signed Patient: NUBIA SANTOS MR#: [id number] : 2005 Acct:[id number] Age/Sex: 18 / F ADM Date: 10/06/23 Loc: US Attending Dr: Luzmaria Allen NP Ordering Physician: Luzmaria Allen NP Date of Service: 10/06/23 Procedure(s): US right upper quadrant Accession Number(s): [id number] cc: Luzmaria Allen NP [address] [address] Patient Name: NUBIA SANTOS MRN: [id number] date: 2005 Sex: F Assigned Patient Location: US Current Patient Location: US Accession/Order Number: [id number] Exam Date: 10/06/2023 10:40 Report Date: 10/06/2023 12:37 At the request of: LUZMARIA ALLEN Procedure: US right upper quadrant EXAM: US right upper quadrant HISTORY: Right upper quadrant pain R10.11 COMPARISON: None. TECHNIQUE: Grayscale and color FINDINGS: The liver is normal in size, contour and echotexture. Hepatopedal flow in the main portal vein with velocity of 28 cm/s. The gallbladder is normal. The wall measures 1.7 mm. Negative sonographic Mercer sign. Common bile duct measures 2.8 mm. The pancreas is normal The right kidney is normal No ascites US/US right upper quadrant IMPRESSION: Normal exam Electronically authenticated by: MAI MILLER Date: 10/06/2023 12:37 Dictated By: Mai Miller M.D. Signed By: 10/06/23 1239 DD/ 36 TD/TT: Associate Professor Of Biblical Studies: Procedure Note Radiology, Radiologist, - 10/06/2023 [place] [address] Ultrasound Report Signed Patient: NUBIA SANTOS CMR#: [id number] : 2005Acct:[id number] Age/Sex: 18 / FADM Date: 10/06/23 Loc: US Attending Dr: Luzmaria Allen NP Ordering Physician: Luzmaria Allen NP Date of Service: 10/06/23 Procedure(s): US right upper quadrant Accession Number(s): [id number] cc: Luzmaria Allen NP [place] [id number] Patient Name: NUBIA SANTOS MRN: [id number] date: 2005 Sex: F Assigned Patient Location: US Current Patient Location: US Accession/Order Number: [id number] Exam Date: 10/06/2023 10:40 Report Date: 10/06/2023 12:37 At the request of: LUZMARIA ALLEN Procedure: US right upper quadrant EXAM: US right upper quadrant HISTORY: Right upper quadrant pain R10.11 COMPARISON: None. TECHNIQUE: Grayscale and color FINDINGS: The liver is normal in size, contour and echotexture. Hepatopedal flow inthe main portal vein with velocity of 28 cm/s. The gallbladder is normal. The wall measures 1.7 mm. Negative sonographic Mercer sign. Common bile duct measures 2.8 mm. The pancreas is normal The right kidney is normal No ascites US/US right upper quadrant IMPRESSION: Normal exam Electronically authenticated by: MAI MILLER Date: 10/06/2023 12:37 Dictated By: Mai Miller M.D. Signed By:10/06/23 1239 DD/ 1237 TD/TT: Associate Professor Of Biblical Studies: us Luzmaria Allen NP [facility] Final Result documented in this encounter Visit Diagnoses Not on filedocumented in this encounter Care Teams Beading Sawyer Relationship Specialty Start Date End Date Javier Gutierrez MD [address] [place] [address] PCP - General Family Medicine 09/16/23 Luzmaria Allen NP [address] [place] [address] Referring Physician Nurse Practitioner 11/06/22 documented as of this encounter
--- OUTSIDE RECORDS SUMMARY | 2024-10-07 20:49 | XMS_ITS | CCD ---
Author Organization [facility] Care Team Providers Care Health Inspector Food Name Role Phone AICHHOLZ, RAILROAD SIGNAL OPERATOR LUZMARIA Attending Unavailable AICHHOLZ, RAILROAD SIGNAL OPERATOR LUZMARIA Admitting Unavailable AICHHOLZ, RAILROAD SIGNAL OPERATOR LUZMARIA Primary Care Unavailable GINETTE .SHERWIN Consulting Unavailabl e DIAB ., CAROLIN Attending Unavailable DIAB ., CAROLIN Admitting Unavailable AICHHOLZ, RAILROAD SIGNAL OPERATOR LUZMARIA Primary Care Unavailable CRISTINA MCKEON Consulting Unavailable DIAB ., CAROLIN Consulting Unavailable ZIEBEHSAN, DR BRENDA Mckinney Consulting Unavailable PAY ., DR DAWSON Attending Unavailable PAY ., DR DAWSON Admitting Unavailable AICHHOLZ, RAILROAD SIGNAL OPERATOR LUZMARIA Primary Care Unavailable PAY ., DR DAWSON Consulting Unavailable MISC, DR RUDOLPH Attending Unavailable MISC, DR RUDOLPH Admitting Unavailable MISC, DR RUDOLPH Consulting Unavailable AICHHOLZ, RAILROAD SIGNAL OPERATOR LUZMARIA Primary Care Unavailable AICHHOLZ, RAILROAD SIGNAL OPERATOR LUZMARIA Attending Unavailable AICHHOLZ, RAILROAD SIGNAL OPERATOR LUZMARIA Admitting Unavailable AICHHOLZ, RAILROAD SIGNAL OPERATOR LUZMARIA Primary Care Unavailable AICHHOLZ, RAILROAD SIGNAL OPERATOR LUZMARIA Consulting Unavailable ZIEBEHSAN, DR BRENDA Mckinney Consulting Unavailable Aichholz SQL SSRS SSIS DEVELOPER, Luzmaria Unavailable Javier Gutierrez MD Primary Care Provider [phone] Luzmaria Allen Primary Care Provider Cindy VALLE, Félix Attending Provider [phone] Luzmaria Allen J Primary Care Unavailable Asaad, Imad Attending Unavailable Asaad, Imad Admitting Unavailable AICHHOLZ, LUZMARIA Attending Unavailable AICHHOLZ, LUZMARIA Attending Unavailable AICHHOLZ, LUZMARIA Attending Unavailable AICHHOLZ, LUZMARIA Attending Unavailable AICHHOLLaura, LUZMARIA Attending Unavailable JINA WRIGHT Attending Unavailable Tiffany, Luzmaria J Primary Care Provider Martinez Coelho APRN Attending Provider Allergies Allergy Classification Reported Allergen(s) Allergy Type Date of Onset Reaction(s) Facility (1 source) Aspirin / Caffeine Drug Allergy [facility] Repository (1 source) Brompheniramine / Pseudoephedrine Drug Allergy 05-10-19 15 [facility] (1 source) Sulfamethoxazole / Trimethoprim Drug Allergy 08-22-19 13 [facility] (1 source) vitamin K3 Drug Allergy [facility] (18 sources) Brompheniramine Drug Allergy 12-24-19 GI intolerance [facility] Work Phone: Comment on above: vomiting (18 sources) Phenylephrine Drug Allergy 12-24-19 GI intolerance [facility] Comment on above: vomiting (18 sources) Pseudoephedrine Drug Allergy 12-24-19 GI intolerance [facility] Comment on above: vomiting (18 sources) Sulfamethoxazole Allergy to substance 12-24-19 Hives [facility] Comment on above: vomiting (18 sources) Trimethoprim Drug Allergy 12-24-19 Hives [facility] Comment on above: vomiting (14 sources) Pseudoeph-Bromphen- Dm Propensity to adverse reactions 09-16-19 Hives [facility] (1 source) Brompheniramine Drug Allergy 03-04-20 [facility] Repository (1 source) Phenylephrine Drug Allergy 03-04-20 [facility] Repository (1 source) Pseudoephedrine Drug Allergy 03-04-20 [facility] Repository (1 source) Sulfamethoxazole Drug Allergy 03-04-20 [facility] Repository (1 source) Trimethoprim Drug Allergy 03-04-20 [facility] Repository Medications Current Medications Medication Drug Class(es) Dates Sig (Normalized) Sig (Original) [id number] 200 actuat albuterol 0.09 mg/actuat metered dose inhaler (14 sources) beta2-Adrenergic Agonist take 2 puff(s) by inhalation every six hours for wheezing albuterol HFA 90 mcg/act inhaler Inhale 2 puffs every 6 (six) hours if needed for wheezing or shortness of breath Active cholecalciferol 0.05 mg oral tablet (5 sources) Vitamin D Start: 04-27-2024 End: 05-27-2024 take 1 tablet by mouth once daily cholecalciferol (Vitamin D-3) 50 MCG (2000 UT) tablet Indications: Vitamin D deficiency Take 1 tablet (50 mcg) by mouth Daily 30 tablet 2 04/27/2024 05/27/2024 Active clobetasol propionate 0.5 mg/ml topical cream (13 sources) Corticosteroid Start: 03-30-2024 clobetasol (Temovate) 0.05 % cream 03/30/2024 Active Ethinyl Estradiol / Ferrous fumarate / Norethindrone (6 sources) Estrogen Start: 04-27-2024 take 1 tablet by mouth once daily, then take 1 tablet by mouth once daily norethindrone-ethin yl estradiol ( FE 05/03) 1-20 MG-MCG tablet Indications: Uses control Take 1 tablet by mouth Daily for 28 days Take 1 tablet by mouth daily 28 tablet 12 04/27/2024 Active Start: 04-27-2024 End: 05-25-2024 take 1 tablet by mouth once daily, then take 1 tablet by mouth once daily norethindrone-ethinyl estradiol ( F E 05/03) 1-20 MG-MCG tablet Indications: Uses control Take 1 tablet by mouth Daily for 28 days Take 1 tablet by mouth daily 28 tablet 12 04/27/2024 05/25/2024 Active ferrous fumarate 325 mg oral tablet (2 sources) Start: 05-31-2024 take 1 tablet by mouth every other day ferrous sulfate 325 mg delayed release oral tablet (4 sources) Start: 04-27-2024 End: 05-27-2024 take 1 tablet by mouth at mealtime ferrous sulfate 325 (65 Fe) MG EC tablet Indications: Iron deficiency Take 1 tablet (325 mg) by mouth in the morning. Take with meals. Do not crush, chew, or split.. 30 tablet 2 04/27/2024 05/27/2024 Active fluocinolone acetonide 0.1 mg/ml topical oil (13 sources) Corticosteroid Start: 03-30-2024 Deshler-Smoothe/ FS Body 0.01 % external oil 03/30/2024 Active fluticasone propionate 0.05 mg/actuat metered dose nasal spray (14 sources) Corticosteroid Start: 12-23-2022 take 2 spray(s) nasal route once daily fluticasone (Flonase) 50 MCG/ACT nasal spray Administer 2 sprays into each nostril Daily 12/23/2022 Active loratadine 10 mg oral tablet (6 sources) End: 04-22-2024 loratadine (Claritin) 10 MG tablet TAKE 2 TABS DAILY FOR THE FIRST 5 DAYS, THEN TAKE 1-2 NEEDED FOR ALLERGY SYMPTOMS THEREAFTER. 04/22/2024 Discontinued (Therapy completed) Multivitamin preparation (2 sources) Start: 05-31-2024 Start: 05-31-2024 multivitamin ( Daily Multi-Vitamin) Active PO May 31, 2024 12:00am omeprazole 40 mg delayed release oral capsule (2 sources) Proton Pump Inhibitor Start: 05-31-2024 take 1 capsule by mouth twice daily Risankizumab-rzaa (SKYRIZI SC) (4 sources) End: 04-22-2024 Risankizumab-rzaa (SKYRIZI SC) Inject under the skin 04/22/2024 Discontinued (Therapy completed) Risankizumab-rza a (SKYRIZI SC) Inject under the skin Active sertraline 100 mg oral table t (20 sources) Serotonin Reuptake Inhibitor Start: 10-07-2024 Start: 04-02-2024 take 1 tablet by ashley th once daily sertraline (Zoloft) 25 MG tablet Take 25 mg by mouth Daily 04/02/2024 Active Start: 03-30-2024 End: 10-07-2024 Sertraline 100 mg tablet Discontinued 125 MG PO Daily March 30, 2024 2:51pm October 07, 2024 9:28am Start: 02-12-2024 End: 03-30-2024 take 1 tablet by mouth once daily Sertraline 100 mg tablet Discontinued 100 MG PO Daily February 12, 2024 12:00am March 30, 2024 2:52pm sertraline (Zolo ft) 100 MG tablet Take 120 mg by mouth Daily Active Skyrizi Pen 150 MG/ML soluti on auto-injector (10 sources) Start: 04-13-2024 Skyrizi Pen 15 0 MG/ML solution auto-injector 04/13/2024 Active Completed/Discontinued Medications Medication Drug Class(es) Dates Sig (Normalized) Sig (Original) pantoprazole 40 mg delayed release oral tablet (20 sources) Proton Pump Inhibitor Start: 03-30-2024 End: 05-31-2024 take 1 tablet by mouth twice daily Pantoprazole 40 mg tablet,delayed release (DR/EC) Discontinued 40 MG PO Twice daily 60 March 30, 2024 1:00am May 31, 2024 10:08am Start: 10-21-2023 End: 04-01-2024 take 1 tablet by mouth once daily Pantoprazole 20 mg tablet,delayed release (DR/EC) Discontinued 20 MG PO Daily February 12, 2024 9:22am March 30, 2024 2:57pm Problems Active Problems Problem Classification Problem Date Documented Da te Episodic/Chronic Abdominal pain (17 sources) Right upper quadrant pain; Translations: [Right upper quadrant pain] Onset: 4 10-21-2023 Episodic Allergic reactions (14 sources) Atopic dermatitis; Translations: [Atopic dermatitis, unspecified] Onset: 4 12-04-2023 Chronic Anxiety disorders (16 sources) Mixed anxiety and depressive disorder; Translations: [Anxiety disorder, unspecified] Onset: 4 09-16-2023 Chronic Asthma (14 sources) Mild intermittent asthma; Translations: [Mild intermittent asthma, uncomplicated] Onset: 4 09-16-2023 Chronic Cardiac dysrhythmias (4 sources) Palpitations; Translations: [Palpitations] Onset: 5 05-31-2024 Episodic Conditions associated with dizziness or vertigo (11 sources) Dizziness and giddiness; Translations: [Dizziness and giddiness] Onset: 5 04-22-2024 Episodic Contraceptive and procreative management (1 source) Subcutaneous contraceptive implant present; Translations: [Encounter for surveillance of implantable subdermal contraceptive] 04-27-2024 Episodic E Codes: Struck by; against (1 source) Striking against or struck by other objects, initial encounter; Translations: [STRIKING AGNST/STRUCK OTH OBJ INIT] Onset: 3 Episodic Esophageal disorders (20 sources) Gastroesophageal reflux disease without esophagitis; Translations: [Gastro-esophageal reflux disease without esophagitis] Onset: 4 01-20-2024 Chronic Esophageal disorders (3 sources) Esophagitis; Translations: [Esophagitis] 03-30-2024 Episodic Joint disorders and dislocations; trauma-related (18 sources) Derangement of right knee; Translations: [Unspecified internal derangement of right knee] Onset: 4 04-01-2024 Chronic Malaise and fatigue (11 sources) Fatigue; Translations: [Other fatigue] Onset: 5 04-22-2024 Episodic Nutritional deficiencies (8 sources) Vitamin D deficiency; Translations: [Vitamin D deficiency, unspecified] Onset: 5 04-27-2024 Chronic Nutritional deficiencies (7 sources) Iron deficiency; Translations: [Iron deficiency] Onset: 5 04-27-2024 Episodic Other aftercare (4 sources) Other intermediate card tender (current) drug therapy; Translations: [OTH COMM[employer]ITY ASSOCIATE CURRENT DRUG THERAPY] Onset: 2 Episodic Other gastrointestinal disorders (1 source) Dysphagia, unspecified; Translations: [Dysphagia, unspecified] Onset: 4 Episodic Other inflammatory condition of skin (16 sources) Psoriasis; Translations: [Psoriasis, unspecified] Onset: 4 04-01-2024 Chronic Other non-traumatic joint disorders (3 sources) Pain in left wrist; Translations: [PAIN IN LEFT WRIST] Onset: 3 Episodic Other non-traumatic joint disorders (4 sources) Pain in right knee; Translations: [Pain in joint, lower leg] Onset: 5 05-31-2024 Episodic Other nutritional; endocrine; and metabolic disorders (11 sources) Excessive thirst; Translations: [Polydipsia] Onset: 5 04-22-2024 Episodic Other upper respiratory disease (14 sources) Allergic disposition; Translations: [Other allergic rhinitis] Onset: 4 09-16-2023 Chronic Residual codes; unclassified (1 source) Contraception ; Translations: [Other specified health status] 04-27-2024 Episodic Superficial injury; contusion (2 sources) Contusion of left wrist, initial encounter; Translations: [Contusion of right hand, initial encounter] Onset: 2 Episodic Unclassified (4 sources) Chronic pain of right knee 05-31-2024 Past or Other Problems Problem Classification Problem Date Documented Da te Episodic/Chronic Other connective tissue disease (1 source) Pain in right hand; Translations: [PAIN IN RIGHT HAND] Onset: 03-20-2022 Episodic Other gastrointestinal disorders (14 sources) Constipation; Translations: [Other constipation] Onset: 09-16-2023 09-16-2023 Episodic Other non-traumatic joint disorders (3 sources) Pain in right wrist; Translations: [PAIN IN RIGHT WRIST] Onset: 03-18-2022 Episodic Other non-traumatic joint disorders (4 sources) Pain in left elbow; Translations: [PAIN IN LEFT ELBOW] Onset: 01-16-2022 Episodic Other nutritional; endocrine; and metabolic disorders (14 sources) Body mass index 30+ - obesity; Translations: [Obesity, unspecified] Onset: 09-16-2023 Resolved: 09-16-2023 09-16-2023 Chronic Other nutritional; endocrine; and metabolic disorders (18 sources) Body mass index 25-29 - overweight; Translations: [Overweight] Onset: 09-16-2023 09-16-2023 Episodic Results Test Name Value Interpretation Reference Range Facility ALL CBC WITH AUTO DIFFon BASOPHILS ABSOLUTE AUTO 0 [facility] Basophils/100 WBC (Bld) 0.7 % 0.2 - 2.0 % [facility] Eosinophils/100 WBC (Bld) 0.8 % Low 0.9 - 7.0 % [facility] Erythrocyte distribution width (RBC) [Ratio] 12.6 % 11.0 - 15.0 % [facility] Hematocrit (Bld) [Volume fraction] 37.9 % 36.0 - 48.0 % [facility] Hemoglobin (Bld) [Mass/Vol] 12.4 g/dL 12.0 - 16.0 g/dL [facility] IMMATURE GRANULOCYTES ABS AUTO 0.02 [facility] Immature granulocytes/100 WBC (Bld) 0.3 % 0.0 - 0.5 % [facility] Interpretation and review of laboratory results Abnormal [facility] LYMPHOCYTES ABSOLUTE AUTO 1.6 [facility] Lymphocytes/100 WBC (Bld) 26.6 % 20.5 - 60.0 % [facility] MCH (RBC) [Entitic mass] 27.2 pg 26.7 - 34.0 pg [facility] MCHC (RBC) [Mass/Vol] 32.7 g/dL 29.9 - 35.2 g/dL [facility] MCV (RBC) [Entitic vol] 83.1 fL 81.0 - 99.0 fL [facility] MONOCYTES ABSOLUTE AUTO 0.5 [facility] Monocytes/100 WBC (Bld) 8.7 % 1.7 - 12.0 % [facility] NEUTROPHILS ABSOLUTE AUTO 3.8 [facility] Neutrophils/100 WBC (Bld) 62.9 % 43.0 - 75.0 % [facility] Platelet mean volume (Bld) [Entitic vol] 10.8 fL 9.5 - 13.5 fL [facility] TBH EO # 0.1 [facility] TB PLT 264 [facility] TB RBC 4.56 [facility] WBC 6.1 [facility] HCG ( test) IA.rapi d Ql (U)Ordered By: Félix White on 03-04-2024 HCG ( test) Ql (U) Urine human chorionic gonadotropin (hCG) detection by immunoassay [facility] HCG,Urineon 03-04-2024 Beta HCG ( test) Ql (U) Negative Normal [facility] Comment on above: Result Comment: PERF ORMED BY: [place] [address] PATHOLOGIST WOMEN NURSE REBECCA PUGH M.D. Performed By: #### U HCG #### [facility] [address] [place] [address] No Panel InformationOrdered By: Félix White on 03-04-2024 Miscellaneous Pathology Test See comment [facility] Comment on above: See report. Scanned copy available in EMR. Pathology Request for Lab Co rpon 03-04-2024 Pathology Request for Lab Yajaira Normal [facility] Comment on above: Order Comment: PATH SENDOUT-GI SPECIMEN Result Comment: See report. Scanned copy available in EMR. PERFORMED BY: [place] [address] PATHOLOGIST WOMEN NURSE REBECCA PUGH M.D. Performed By: #### P ATH TO [facility] #### [facility] [address] [id number] [facility] XR WRIST LT MIN 3 Von 2022 [...] CRISTINA MCKEON Date: 2022-05-14 22:36 Normal [facility] QUANTIFERON TB GOLD PLUSon 1 05-28-2021 QuantiFERON Criteria Comment Normal [facility] Comment on above: Result Comment: Lester [...] test. Performed By: #### Q NTTB #### [facility] [address] [place] [address] Dr. Rigoberto Quintero QuantiFERON Incubation Incubation performed. Normal [facility] Comment on above: Performed By: #### Q NTTB #### [facility] [address] [place] [address] Dr. Rigoberto Quintero QuantiFERON Mitogen Value >10.00 Normal [facility] Comment on above: Performed By: #### Q NTTB #### [facility] [address] [place] [address] Dr. Rigoberto Quintero QuantiFERON Nil Value 0.02 IU/mL Normal [facility] Comment on above: Performed By: #### Q NTTB #### [facility] [address] [place] [address] Dr. Rigoberto Quintero QuantiFERON TB1 Ag Value 0.02 IU/mL Normal [facility] Comment on above: Performed By: #### Q NTTB #### [facility] [address] [place] [address] Dr. Rigoberto Quintero QuantiFERON TB2 Ag Value 0.02 IU/mL Normal [facility] Comment on above: Performed By: #### Q NTTB #### [facility] [address] [place] [address] Dr. Rigoberto Quintero QuantiFERON-TB Gold Plus Negative Normal Negative [facility] Comment on above: Result Comment: No r esponse to M tuberculosis antigens detected. Infection with M tuberculosis is unlikely, but high risk individuals should be considered for additional testing (ATS/IDSA/CDC Clinical Practice Guidelines, 2017). The reference range is an Antigen minus Nil result of <0.35 IU/mL. Chemiluminescence immunoassay methodology Performed By: #### Q NTTB #### [facility] [address] [place] [address] Dr. Rigoberto Quintero CBC AUTO DIFFon 03-25-2022 BASO # 0.0 103/ul Normal 0.0-0.1 [facility] Comment on above: Performed By: #### C BC #### [facility] [address] [place] [address] Dr. Rigoberto Quintero Basophils/100 WBC (Bld) 0.6 % Normal 0.2-2.0 [facility] Comment on above: Performed By: #### C BC #### [facility] [address] [place] [address] Dr. Rigoberto Quintero EO # 0.1 103/ul Normal 0.0-0.7 [facility] Comment on above: Performed By: #### C BC #### [facility] [address] [place] [address] Dr. Rigoberto Quintero Eosinophils/100 WBC (Bld) 1.1 % Normal 0.9-7.0 [facility] Comment on above: Performed By: #### C BC #### [facility] [address] [place] [address] Dr. Rigoberto Quintero Erythrocyte distribution width (RBC) [Ratio] 12.0 % Normal 11.0-15.0 [facility] Comment on above: Performed By: #### C BC #### [facility] [address] [place] [address] Dr. Rigoberto Quintero Hematocrit (Bld) [Volume fraction] 43.7 % Normal 36.0-48.0 [facility] Comment on above: Performed By: #### C BC #### [facility] [address] [place] [address] Dr. Rigoberto Quintero Hemoglobin (Bld) [Mass/Vol] 14.7 g/dL Normal 12.0-16.0 [facility] Comment on above: Performed By: #### C BC #### [facility] [address] [place] [address] Dr. Rigoberto Quintero IG # 0.01 10e3/ul Normal 0.00-0.03 [facility] Comment on above: Performed By: #### C BC #### [facility] [address] [place] [address] Dr. Rigoberto Quintero IG % 0.2 % Normal 0.0-0.5 [facility] Comment on above: Performed By: #### C BC #### [facility] [address] [place] [address] Dr. Rigoberto Quintero LYMPH # 1.8 103/ul Normal 1.2-3.8 [facility] Comment on above: Performed By: #### C BC #### [facility] [address] [place] [address] Dr. Rigoberto Quintero Lymphocytes/100 WBC (Bld) 27.8 % Normal 20.5-60.0 [facility] Comment on above: Performed By: #### C BC #### [facility] [address] [place] [address] Dr. Rigoberto Quintero MANUAL DIFF REQ NO Normal [facility] Comment on above: Performed By: #### C BC #### [facility] [address] [place] [address] Dr. Rigoberto Quintero MCH (RBC) [Entitic mass] 28.1 pg Normal 26.7-34.0 [facility] Comment on above: Performed By: #### C BC #### [facility] [address] [place] [address] Dr. Rigoberto Quintero MCHC (RBC) [Mass/Vol] 33.6 g/dL Normal 29.9-35.2 [facility] Comment on above: Performed By: #### C BC #### [facility] [address] [address] [address] Rigoberto Quintero MCV (RBC) [Entitic vol] 83.4 fL Normal 81.0-99.0 [facility] Comment on above: Performed By: #### C BC #### [facility] [address] [address] [address] Rigoberto Quintero MONO # 0.5 103/ul Normal 0.3-0.8 [facility] Comment on above: Performed By: #### C BC #### [facility] [address] [place] [address] Dr. Rigoberto Quintero Monocytes/100 WBC (Bld) 7.3 % Normal 1.7-12.0 [facility] Comment on above: Performed By: #### C BC #### [facility] [address] [place] [address] Dr. Rigoberto Quintero NEUT # 4.0 103/ul Normal 1.4-6.5 [facility] Comment on above: Performed By: #### C BC #### [facility] [address] [place] [address] Dr. Rigoberto Quintero Neutrophils/100 WBC (Bld) 63.0 % Normal 43.0-75.0 [facility] Comment on above: Performed By: #### C BC #### [facility] [address] [place] [address] Dr. Rigoberto Quintero Platelet mean volume (Bld) [Entitic vol] 10.6 fL Normal 9.5-13.5 [facility] Comment on above: Performed By: #### C BC #### [facility] [address] [place] [address] Dr. Rigoberto Quintero PLT 219 103/ul Normal 150-450 [facility] Comment on above: Performed By: #### C BC #### [facility] [address] [place] [address] Dr. Rigoberto Quintero RBC 5.24 106/ul Normal 4.20-5.40 [facility] Comment on above: Performed By: #### C BC #### [facility] [address] [address] [address] Rigoberto Quintero WBC 6.3 103/ul Normal 4.0-11.0 [facility] Comment on above: Performed By: #### C BC #### [facility] [address] [address] [address] Rigoberto Quintero LIPID PROFILEon 03-25-2022 CHOL-HDL RATIO NORM SEE BELOW Normal [facility] Comment on above: Result Comment: 3.3 - 4.4 LOW RISK 4.4 - 7.1 AVERAGE RISK 7.1 - 11.0 MODERATE RISK >11.0 HIGH RISK Performed By: #### C MP, LIPID #### [facility] [address] [address] [address] Rigoberto Quintero Cholesterol [Mass/Vol] 168 mg/dL Normal 104-227 [facility] Comment on above: Performed By: #### C MP, LIPID #### [facility] [address] [address] [address] Rigoberto Quintero Cholesterol in HDL [Mass/Vol] 49 mg/dL Normal 29-69 [facility] Comment on above: Performed By: #### C MP, LIPID #### [facility] [address] [address] [address] Rigoberto Quintero Cholesterol in LDL [Mass/Vol] 103.0 mg/dL Normal 46.0-140.0 [facility] Comment on above: Performed By: #### C MP, LIPID #### [facility] [address] [address] [address] Rigoberto Quintero Cholesterol.total/Mikki sterol in HDL [Mass ratio] 3.4 {ratio} Normal [facility] Comment on above: Performed By: #### C MP, LIPID #### [facility] [address] [address] [address] Rigoberto Quintero HDL NORMAL > or = 60 mg/dl - LOW CARDIOVASCULAR RISK <40 mg/dl - HIGH CARDIOVASCULAR RISK Normal [facility] Comment on above: Performed By: #### C MP, LIPID #### [facility] [address] [address] [address] Rigoberto Quintero LDL CALC NORMAL SEE BELOW Normal [facility] Comment on above: Result Comment: <100 mg/dl OPTIMAL 100 - 129 mg/dl NEAR OR ABOVE OPTIMAL 130 - 159 mg/dl BORDERLINE HIGH 160 - 189 mg/dl HIGH >190 mg/dl VERY HIGH Performed By: #### C MP, LIPID #### [facility] [address] [address] [address] Rigoberto Quintero Triglyceride [Mass/Vol] 80 mg/dL Normal 53-[address] [facility] Comment on above: Performed By: #### C MP, LIPID #### [facility] [address] [address] [address] Rigoberto Quintero VLDL CALC 16.0 mg/dL Normal [facility] Comment on above: Performed By: #### C MP, LIPID #### [facility] [address] [place] [address] Dr. Rigoberto Quintero PROF 14(COMP METB)on 022 Albumin [Mass/Vol] 4.1 g/dL Normal 3.4-5.0 [facility] Comment on above: Performed By: #### C MP, LIPID #### [facility] [address] [place] [address] Dr. Rigoberto Quintero Albumin/Globulin [Mass ratio] 0.9 {ratio} Normal [facility] Comment on above: Performed By: #### C MP, LIPID #### [facility] [address] [place] [address] Dr. Rigoberto Quintero ALP [Catalytic activity/Vol] 91 U/L Normal 46-116 [facility] Comment on above: Performed By: #### C MP, LIPID #### [facility] [address] [address] [address] Rigoberto Quintero ALT [Catalytic activity/Vol] 38 U/L Normal 14-59 [facility] Comment on above: Performed By: #### C MP, LIPID #### [facility] [address] [place] [address] Dr. Rigoberto Quintero Anion gap [Moles/Vol] 14.1 mmol/L Normal [facility] Comment on above: Performed By: #### C MP, LIPID #### [facility] [address] [address] [address] Rigoberto Quintero AST [Catalytic activity/Vol] 28 U/L Normal 15-37 [facility] Comment on above: Performed By: #### C MP, LIPID #### [facility] [address] [place] [address] Dr. Rigoberto Quintero Bilirubin [Mass/Vol] 0.5 mg/dL Normal 0.2-1.0 [facility] Comment on above: Performed By: #### C MP, LIPID #### [facility] [address] [place] [address] Dr. Rigoberto Quintero Calcium [Mass/Vol] 9.6 mg/dL Normal 8.5-10.1 [facility] Comment on above: Performed By: #### C MP, LIPID #### [facility] [address] [place] [address] Dr. Rigoberto Quintero Chloride [Moles/Vol] 102 mmol/L Normal 98-107 [facility] Comment on above: Performed By: #### C MP, LIPID #### [facility] [address] [place] [address] Dr. Rigoberto Quintero CO2 [Moles/Vol] 27.6 mmol/L Normal 21.0-32.0 [facility] Comment on above: Performed By: #### C MP, LIPID #### [facility] [address] [place] [address] Dr. Rigoberto Quintero Creatinine [Mass/Vol] 0.67 mg/dL Normal 0.55-1.02 [facility] Comment on above: Performed By: #### C MP, LIPID #### [facility] [address] [place] [address] Dr. Rigoberto Quintero EGFR-AF ZAMBIAN >60 Normal >=60 [facility] Comment on above: Performed By: #### C MP, LIPID #### [facility] [address] [place] [address] Dr. Rigoberto Quintero EGFR-NON AF ZAMBIAN >60 Normal >=60 [facility] Comment on above: Performed By: #### C MP, LIPID #### [facility] [address] [place] [address] Dr. Rigoberto Quintero Globulin (S) [Mass/Vol] 4.5 g/dL Normal [facility] Comment on above: Performed By: #### C MP, LIPID #### [facility] [address] [address] [address] Rigoberto Quintero Glucose [Mass/Vol] 90 mg/dL Normal 74-106 [facility] Comment on above: Performed By: #### C MP, LIPID #### [facility] [address] [address] [address] Rigoberto Quintero Potassium [Moles/Vol] 3.7 mmol/L Normal 3.5-5.1 [facility] Comment on above: Performed By: #### C MP, LIPID #### [facility] [address] [place] [address] Dr. Rigoberto Quintero Protein [Mass/Vol] 8.6 g/dL Critically high 6.4-8.2 [facility] Comment on above: Performed By: #### C MP, LIPID #### [facility] [address] [place] [address] Dr. Rigoberto Quintero Sodium [Moles/Vol] 140 mmol/L Normal 136-145 [facility] Comment on above: Performed By: #### C MP, LIPID #### [facility] [address] [place] [address] Dr. Rigoberto Quintero Urea nitrogen [Mass/Vol] 16.0 mg/dL Normal 6.4-19.3 [facility] Comment on above: Performed By: #### C MP, LIPID #### [facility] [address] [place] [address] Dr. Rigoberto Quintero Urea nitrogen/Creatinine [Mass ratio] 23.9 mg/mg Normal [facility] Comment on above: Performed By: #### C MP, LIPID #### [facility] [address] [place] [address] Dr. Rigoberto Quintero Vital Signs Date Time Vital Sign Value Performing Clinician Facility 10-07-2024 09:23-0400 Body height 177.8 cm Luzmaria Mosspepe Work Phone: [facility] 10-07-2024 09:23-0400 Body mass index (BMI) [Ratio] 28.3 kg/m2 Luzmaria Aichholz Work Phone: [facility] 10-07-2024 09:23-0400 Body weight 89.35 kg Luzmaria Aichholz Work Phone: [facility] 10-07-2024 09:23-0400 Diastolic blood pressure 72 mm[Hg] Luzmaria Aichholz Work Phone: [facility] 10-07-2024 09:23-0400 Heart rate 91 /min Luzmaria Aichholz Work Phone: [facility] 10-07-2024 09:23-0400 SaO2% (BldA) [Mass fraction] 97 % Luzmaria Aichholz Work Phone: [facility] 10-07-2024 09:23-0400 Systolic blood pressure 126 mm[Hg] Luzmaria Aichholz Work Phone: [facility] 05-31-2024 15:04-0500 Body mass index (BMI) [Ratio] 28.32 kg/m2 Luzmaria Aichholz SQL [employer] DEVELOPER Work Phone: [facility] 05-31-2024 15:04-0500 Body temperature 98.49 [degF] Luzmaria Aichholz SQL SS[employer] SSIS DEVELOPER Work Phone: [facility] 05-31-2024 15:04-0500 Body weight 89.54 kg Luzmaria Aichholz SQL SSRS SSIS DEVELOPER Work Phone: [facility] 05-31-2024 15:04-0500 Diastolic blood pressure 78 mm[Hg] Luzmaria Aichholz SQL SSRS SSIS DEVELOPER Work Phone: [facility] 05-31-2024 15:04-0500 Heart rate 99 /min Luzmaria Aichholz SQL SS[employer] SS[employer] DEVELOPER Work Phone: [facility] 05-31-2024 15:04-0500 Respiratory rate 20 /min Luzmaria Aichholz SQL SSRS SSIS DEVELOPER Work Phone: [facility] 05-31-2024 15:04-0500 SaO2% (BldA) [Mass fraction] 99 % Luzmaria Allen SQL SSRS SSIS DEVELOPER Work Phone: [facility] 05-31-2024 15:04-0500 Systolic blood pressure 122 mm[Hg] Luzmaria Allen SQL SSRS SSIS DEVELOPER Work Phone: [facility] 05-31-2024 09:04-0500 Body height 177.8 cm Luzmaria Bolandz Work Phone: [facility] 05-31-2024 09:04-0500 Body mass index (BMI) [Ratio] 27.9 kg/m2 Luzmariarobel Bolandz Work Phone: [facility] 05-31-2024 09:04-0500 Body weight 88.45 kg Luzmaria Bolandz Work Phone: [facility] 04-27-2024 10:21-0500 Body mass index (BMI) [Ratio] 28.27 kg/m2 Jina Wright PA Work Phone: [facility] 04-27-2024 10:21-0500 Body weight 89.36 kg Jina Tarsha PA Work Phone: [facility] 04-27-2024 10:21-0500 Diastolic blood pressure 72 mm[Hg] Jina Wilmington PA Work Phone: [facility] 04-27-2024 10:21-0500 Systolic blood pressure 120 mm[Hg] Jina Tarsha PA Work Phone: [facility] 04-22-2024 13:09-0500 Body height 177.8 cm Luzmaria Mosspepe SQL SSRS SS[employer] DEVELOPER Work Phone: [facility] 04-22-2024 13:09-0500 Body mass index (BMI) [Ratio] 28.7 kg/m2 Luzmaria Mosspepe SQL SSRS SSIS DEVELOPER Work Phone: [facility] 04-22-2024 13:09-0500 Body temperature 98.01 [degF] Luzmaria Isaholz SQL SSRS SSIS DEVELOPER Work Phone: [facility] 04-22-2024 13:09-0500 Body weight 90.72 kg Luzmaria Deanahholz SQL SSRS SSIS DEVELOPER Work Phone: [facility] 04-22-2024 13:09-0500 Diastolic blood pressure 78 mm[Hg] Luzmaria Aichholz SQL SSRS SSIS DEVELOPER Work Phone: [facility] 04-22-2024 13:09-0500 Heart rate 76 /min Luzmaria Aichholz SQL SSRS SSIS DEVELOPER Work Phone: [facility] 04-22-2024 13:09-0500 Respiratory rate 18 /min Luzmaria Aichholz SQL SSRS SSIS DEVELOPER Work Phone: [facility] 04-22-2024 13:09-0500 SaO2% (BldA) [Mass fraction] 98 % Luzmaria Deanahholz SQL SSRS SSIS DEVELOPER Work Phone: [facility] 04-22-2024 13:09-0500 Systolic blood pressure 108 mm[Hg] Luzmaria Deanahholz SQL SSRS SSIS DEVELOPER Work Phone: [facility] 04-01-2024 09:02-0500 Body height 177.8 cm Luzmaria Deanahholz SQL SSRS SSIS DEVELOPER Work Phone: [facility] 04-01-2024 09:02-0500 Body mass index (BMI) [Ratio] 28.27 kg/m2 Luzmaria Deanahholz SQL SSRS SSIS DEVELOPER Work Phone: [facility] 04-01-2024 09:02-0500 Body temperature 98.01 [degF] Luzmaria Deanahholz SQL SSRS SSIS DEVELOPER Work Phone: [facility] 04-01-2024 09:02-0500 Body weight 89.36 kg Luzmaria Deanahholz SQL SSRS SSIS DEVELOPER Work Phone: [facility] Comment on above: with coat on 04-01-2024 09:02-0500 Diastolic blood pressure 78 mm[Hg] Luzmaria Aichholz SQL SSRS SSIS DEVELOPER Work Phone: [facility] 04-01-2024 09:02-0500 Heart rate 81 /min Luzmaria Aichholz SQL SSRS SSIS DEVELOPER Work Phone: [facility] 04-01-2024 09:02-0500 Respiratory rate 18 /min Luzmaria Aichholz SQL SSRS SSIS DEVELOPER Work Phone: [facility] 04-01-2024 09:02-0500 SaO2% (BldA) [Mass fraction] 96 % Luzmaria Aichholz SQL SSRS SSIS DEVELOPER Work Phone: [facility] 04-01-2024 09:02-0500 Systolic blood pressure 110 mm[Hg] Luzmaria Aichholz SQL SSRS SSIS DEVELOPER Work Phone: [facility] 03-30-2024 13:51-0500 Body height 177.8 cm Luzmaria Aichholz Work Phone: [facility] 03-30-2024 13:51-0500 Body mass index (BMI) [Ratio] 27.2 kg/m2 Luzmaria Aichholz Work Phone: [facility] 03-30-2024 13:51-0500 Body weight 86.18 kg Luzmaria Aichholz Work Phone: [facility] 03-04-2024 14:35-0500 Diastolic blood pressure 64 mm[Hg] Luzmaria Aichholz Work Phone: [facility] 03-04-2024 14:35-0500 Heart rate 61 /min Luzmaria Aichholz Work Phone: [facility] 03-04-2024 14:35-0500 Respiratory rate 16 /min Luzmaria Aichholz Work Phone: [facility] 03-04-2024 14:35-0500 SaO2% (BldA) [Mass fraction] 99 % Luzmaria Aichholz Work Phone: [facility] 03-04-2024 14:35-0500 Systolic blood pressure 105 mm[Hg] Luzmaria Aichholz Work Phone: [facility] 03-04-2024 12:22-0500 Body height 177.8 cm Luzmaria Allen Work Phone: [facility] 03-04-2024 12:22-0500 Body weight 90.71 kg Luzmaria Allen Work Phone: [facility] 02-12-2024 09:05-0400 Body height 177.8 cm [facility] 02-12-2024 09:05-0400 Body mass index (BMI) [Ratio] 28.1 kg/m2 [facility] 02-12-2024 09:05-0400 Body weight 88.9 kg [facility] 02-12-2024 09:05-0400 Diastolic blood pressure 57 mm[Hg] [facility] 02-12-2024 09:05-0400 Heart rate 86 /min [facility] 02-12-2024 09:05-0400 Systolic blood pressure 108 mm[Hg] [facility] Encounters Encounter Date Encounter Type Care Provider Facility Start: 10-07-2024 End: 10-07-2024 ambulatory Luzmaria Allen Work Phone: [facility] Work Phone: Start: 10-07-2024 End: 10-07-2024 Patient encounter procedure Martinez Otto APRN [facility] Work Phone: Start: 05-31-2024 End: 05-31-2024 Office outpatient visit 25 minutes Luzmaria Allen SQL SSRS SSIS DEVELOPER Work Phone: [facility] Comment on above: Chronic pain of righ t knee (Primary Dx); Heart palpitations Start: 05-31-2024 End: 05-31-2024 ambulatory LUZMARIA ALLEN Not Available Start: 05-31-2024 End: 05-31-2024 ambulatory Luzmaria Allen Work Phone: [facility] Work Phone: Start: 05-31-2024 End: 05-31-2024 Patient encounter procedure Luzmaria Allen Work Phone: [facility] Work Phone: Start: 04-27-2024 End: 04-27-2024 Patient encounter procedure Jina COURTNEY Work Phone: [facility] Comment on above: Nexplanon removal; Uses control Start: 04-27-2024 End: 04-27-2024 Refill Luzmaria Allen SQL SSRS SSIS DEVELOPER Work Phone: [facility] Comment on above: Iron deficiency (Annie joe Dx); Vitamin D deficiency Vitamin D deficiency Iron deficiency; Vitamin D deficiency Start: 04-24-2024 End: 04-24-2024 Clinisync Result Encounter Luzmaria Allen SQL SSRS SSIS DEVELOPER Work Phone: [facility] Unsolicited Start: 04-24-2024 End: 04-24-2024 Clinisync Result Encounter Luzmaria Allen SQL SSRS SSIS DEVELOPER Work Phone: [facility] Unsolicited Start: 04-22-2024 End: 04-22-2024 Bamboo flowsheet Luzmaria Allen SQL SSRS SSIS DEVELOPER Work Phone: [facility] Start: 04-22-2024 End: 04-22-2024 Bamboo flowsheet Luzmaria Allen SQL SSRS SSIS DEVELOPER Work Phone: [facility] Start: 04-22-2024 End: 04-22-2024 Office outpatient visit 25 minutes Luzmaria Allen SQL SSRS SSIS DEVELOPER Work Phone: [facility] Comment on above: Dizziness and giddin ess (Primary Dx); Internal derangement of right knee; Overweight (BMI 25.0-29.9); Polydipsia; Other fatigue; Psoriasis (CMS/HCC); Anxiety and depression (CMS/HCC) Start: 04-22-2024 End: 04-22-2024 ambulatory LUZMARIA ALLEN Not Available Start: 04-01-2024 End: 04-01-2024 Bamboo flowsheet Luzmaria Allen SQL SSRS SSIS DEVELOPER Work Phone: [facility] Start: 04-01-2024 End: 04-01-2024 Bamboo flowsheet Luzmaria Deanajosepepe SQL SSRS SSIS DEVELOPER Work Phone: [facility] Start: 04-01-2024 End: 04-01-2024 Office outpatient visit 15 minutes Luzmaria Tiffany SQL SSRS SSIS DEVELOPER Work Phone: [facility] Comment on above: Overweight (BMI 25.0 -29.9) (Primary Dx); Internal derangement of right knee; Psoriasis (CMS/HCC) Start: 04-01-2024 End: 04-01-2024 ambulatory LUZMARIA ALLEN Not Available Start: 03-30-2024 End: 03-30-2024 Patient encounter procedure Luzmaria Allen Work Phone: [facility] Work Phone: Start: 03-04-2024 Non-patient / Non-visit Luzmaria Robel norah Work Phone: [facility] Work Phone: Start: 03-04-2024 End: 03-04-2024 Admission to same day surgery center Luzmaria Tiffany Work Phone: [facility] Work Phone: Start: 03-04-2024 End: 03-04-2024 ambulatory Luzmaria Guillermina Allen Work Phone: [facility] Work Phone: Start: 02-12-2024 End: 02-12-2024 ambulatory [facility] Work Phone: Start: 02-12-2024 End: 02-12-2024 Patient encounter procedure [facility] Work Phone: Start: 01-20-2024 End: 01-20-2024 Refill Luzmaria Allen SQL SSRS SSIS DEVELOPER Work Phone: [facility] Comment on above: Gastroesophageal ref lux disease without esophagitis Start: 10-21-2023 End: 10-21-2023 ambulatory LUZMARIA AICHHOLZ Not Available Start: 09-16-2023 End: 09-16-2023 ambulatory LUZMARIA AICHHOLZ Not Available Start: 06-24-2022 ambulatory 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 Facility:[facility] Start: 03-25-2022 End: 03-26-[address] DOCTOR SINGH Facility:[facility] Start: 03-18-2022 End: 03-18-[address] BRENDA DO Facility:[facility] Start: 01-16-2022 End: 01-17-2022 ambulatory RAILROAD SIGNAL OPERATOR LUZMARIA AICHHOLLaura Facility:[facility] Procedures Date Procedure Procedure Detail Performing Clinician Start: 04-24-2024 ALL CBC WITH AUTO DIFF Luzmaria Deanahholz SQL SSRS SSIS DEVELOPER Work Phone: Start: 03-04-2024 Esophagogastroduodenoscopy Luzmaria Aichholz Work Phone: Plan of Treatment Date Care Activity Detail Author Start: 01-12-2025 End: 01-12-2025 Patient encounter procedure 01/12/2025 10:00 AM EDT Office Visit [facility] [address] [place] [id number] Jina Wright PA [address] [place], [place] [id number] [facility] Start: 08-02-2024 End: 08-02-2024 Patient encounter procedure 08/02/2024 9:40 AM EDT Office Visit [facility] [address] [place] [id number] Luzmaria Allen NP [address] [place] [id number] [facility] Start: 07-26-2024 End: 04-27-2025 25-hydroxyvitamin D3 [Mass/volume] in Serum or Plasma Vitamin D 25 hydroxy Lab Routine Vitamin D deficiency Expected: 07/26/2024 (Approximate), Expires: 04/27/2025 [facility] Comment on above: Expected: 07/26/2024 (Approximate), Expires: 04/27/2025 Start: 07-26-2024 End: 04-27-2025 CBC W Auto Differential panel - Blood CBC and differential Lab Routine Iron deficiency Expected: 07/26/2024 (Approximate), Expires: 04/27/2025 [facility] Comment on above: Expected: 07/26/2024 (Approximate), Expires: 04/27/2025 Start: 07-26-2024 End: 04-27-2025 Ferritin [Mass/volume] in Serum or Plasma Ferritin Lab Routine Iron deficiency Expected: 07/26/2024 (Approximate), Expires: 04/27/2025 [facility] Comment on above: Expected: 07/26/2024 (Approximate), Expires: 04/27/2025 Start: 07-26-2024 End: 04-27-2025 Iron and Iron binding capacity panel - Serum or Plasma Iron level Lab Routine Iron deficiency Expected: 07/26/2024 (Approximate), Expires: 04/27/2025 [facility] Work Phone: Comment on above: Expected: 07/26/2024 (Approximate), Expires: 04/27/2025 Start: 05-24-2024 End: 05-24-2024 Patient encounter procedure 05/24/2024 9:00 AM EST Office Visit [facility] [address] [place] [phone] Luzmaria Allen, CLAUDETTE [address] [place] [id number] [facility] Start: 04-27-2024 End: 04-27-2024 Patient encounter procedure 04/27/2024 10:00 AM EST Procedure Visit [facility] [address] [place] [address] Jina Wright PA [address] [place] [address] [place] [address] [facility] Start: 04-22-2024 End: 04-22-2025 25-hydroxyvitamin D3 [Mass/volume] in Serum or Plasma Vitamin D 25 hydroxy Lab Routine Psoriasis (CMS/HCC) Expected: 04/22/2024 (Approximate), Expires: 04/22/2025 [facility] Comment on above: Expected: 04/22/2024 (Approximate), Expires: 04/22/2025 Start: 04-22-2024 End: 04-22-2025 CBC W Auto Differential panel - Blood CBC and differential Lab Routine Dizziness and giddiness Expected: 04/22/2024 (Approximate), Expires: 04/22/2025 [facility] Comment on above: Expected: 04/22/2024 (Approximate), Expires: 04/22/2025 Start: 04-22-2024 End: 04-22-2025 Comprehensive metabolic 2000 panel - Serum or Plasma Comprehensive metabolic panel Lab Routine Polydipsia Dizziness and giddiness Expected: 04/22/2024 (Approximate), Expires: 04/22/2025 [facility] Comment on above: Expected: 04/22/2024 (Approximate), Expires: 04/22/2025 Start: 04-22-2024 End: 04-22-2025 Ferritin [Mass/volume] in Serum or Plasma Ferritin Lab Routine Dizziness and giddiness Expected: 04/22/2024 (Approximate), Expires: 04/22/2025 [facility] Comment on above: Expected: 04/22/2024 (Approximate), Expires: 04/22/2025 Start: 04-22-2024 End: 04-22-2025 Hemoglobin A1c/Hemoglobin.total in Blood Hemoglobin A1c Lab Routine Polydipsia Expected: 04/22/2024 (Approximate), Expires: 04/22/2025 [facility] Work Phone: Comment on above: Expected: 04/22/2024 (Approximate), Expires: 04/22/2025 Start: 04-22-2024 End: 04-22-2025 Insulin, random Insulin, random Lab Routine Polydipsia Dizziness and giddiness Expected: 04/22/2024 (Approximate), Expires: 04/22/2025 [facility] Comment on above: Expected: 04/22/2024 (Approximate), Expires: 04/22/2025 Start: 04-22-2024 End: 04-22-2025 Iron + transferrin + TIBC Iron + transferrin + TIBC Lab Routine Dizziness and giddiness Expected: 04/22/2024 (Approximate), Expires: 04/22/2025 [facility] Comment on above: Expected: 04/22/2024 (Approximate), Expires: 04/22/2025 Start: 04-22-2024 End: 04-22-2025 Thyroid peroxidase and thyroglobulin antibodies Thyroid peroxidase and thyroglobulin antibodies Lab Routine Other fatigue Expected: 04/22/2024 (Approximate), Expires: 04/22/2025 [facility] Comment on above: Expected: 04/22/2024 (Approximate), Expires: 04/22/2025 Start: 04-22-2024 End: 04-22-2025 Thyrotropin [Units/volume] in Serum or Plasma TSH Lab Routine Other fatigue Expected: 04/22/2024 (Approximate), Expires: 04/22/2025 [facility] Comment on above: Expected: 04/22/2024 (Approximate), Expires: 04/22/2025 Start: 04-22-2024 End: 04-22-2025 Thyroxine (T4) free [Mass/volume] in Serum or Plasma T4, free Lab Routine Other fatigue Expected: 04/22/2024 (Approximate), Expires: 04/22/2025 [facility] Comment on above: Expected: 04/22/2024 (Approximate), Expires: 04/22/2025 Start: 04-22-2024 End: 04-22-2025 Urinalysis complete panel - Urine Urinalysis with reflex microscopic (clean catch) Lab Routine Dizziness and giddiness Expected: 04/22/2024 (Approximate), Expires: 04/22/2025 [facility] Comment on above: Expected: 04/22/2024 (Approximate), Expires: 04/22/2025 Start: 04-22-2024 End: 04-22-2024 Patient encounter procedure 04/22/2024 1:00 PM EST Office Visit [facility] [address] [place] [phone] Luzmaria Allen, CLAUDETTE [address] [place] [phone] Internal derangement of right knee (Primary Dx); Overweight (BMI 25.0-29.9) [facility] Comment on above: Internal derangement of right knee (Primary Dx); Overweight (BMI 25.0-29.9) Start: 04-01-2024 End: 04-01-2025 MR Knee - right WO contrast MR knee right wo IV contrast Imaging Routine Internal derangement of right knee Expected: 04/01/2024 (Approximate), Expires: 04/01/2025 [facility] Comment on above: Expected: 04/01/2024 (Approximate), Expires: 04/01/2025 Start: 04-01-2024 End: 04-01-2025 XR Knee - right 3 Views XR knee 3 views right Imaging Routine Internal derangement of right knee Expected: 04/01/2024, Expires: 04/01/2025 [facility] Work Phone: Comment on above: Expected: 04/01/2024 , Expires: 04/01/2025 Start: 04-01-2024 End: 04-01-2024 Patient encounter procedure 04/01/2024 9:00 AM EST Office Visit [facility] [address] [place] [phone] Luzmaria Allen NP [address] [place] [phone] Overweight (BMI 25.0-29.9) (Primary Dx) [facility] on above: Overweight (BMI 25.0 -29.9) (Primary Dx) Start: 03-04-2024 [facility] Patient Education Eosinophilic esophagitis Know your Meds [facility] Work Phone: Radionuclide gastric emptying study [facility] Immunizations Immunization Date Immunization Notes Care Provider Fa batool 01-01-2022 meningococcal B vacc ine, recombinant, OMV, adjuvanted Luzmaria Aichholz SQL SSRS SSIS DEVELOPER Work Phone: [facility] 11-27-2021 meningococcal B vacc ine, recombinant, OMV, adjuvanted Luzmaria Aichholz SQL SSRS SSIS DEVELOPER Work Phone: [facility] 11-27-2021 Meningococcal Polysaccharide A,C,Y,W-135 TT Conjugate Luzmaria Aichholz SQL SSRS SSIS DEVELOPER Work Phone: [facility] 12-31-2016 hepatitis A vaccine, pediatric/adolescent dosage, 2 dose schedule Luzmaria Aichholz SQL SSRS SSIS DEVELOPER Work Phone: [facility] 11-12-2016 meningococcal polysaccharide (groups A, C, Y and W-135) diphtheria toxoid conjugate vaccine (MCV4P) Luzmaria Aichholz SQL SSRS SSIS DEVELOPER Work Phone: [facility] 11-12-2016 tetanus toxoid, redu shonda diphtheria toxoid, and acellular pertussis vaccine, adsorbed Luzmaria Aichholz SQL SSRS SSIS DEVELOPER Work Phone: [facility] 12-13-2009 Diphtheria, tetanus toxoids and acellular pertussis vaccine, and poliovirus vaccine, inactivated Luzmaria Aichholz SQL SSRS SSIS DEVELOPER Work Phone: [facility] 12-13-2009 hepatitis A vaccine, pediatric/adolescent dosage, 2 dose schedule Luzmaria Aichholz SQL SSRS SSIS DEVELOPER Work Phone: [facility] 12-13-2009 measles, mumps, rube lla, and varicella virus vaccine Luzmaria Aichholz SQL SSRS SSIS DEVELOPER Work Phone: [facility] 05-31-2005 diphtheria, tetanus toxoids and acellular pertussis vaccine, unspecified formulation Luzmaria Aichholz SQL SSRS SSIS DEVELOPER Work Phone: [facility] 05-31-2005 haemophilus influenz ae type b vaccine, conjugate unspecified formulation Luzmaria Aichholz SQL SSRS SSIS DEVELOPER Work Phone: [facility] 05-31-2005 pneumococcal conjuga te vaccine, 7 valent Luzmaria Aichholz SQL SSRS SSIS DEVELOPER Work Phone: [facility] 01-07-2005 measles, mumps and r ubella virus vaccine Luzmaria Aichholz SQL SSRS SSIS DEVELOPER Work Phone: [facility] 01-07-2005 varicella virus vaccine Luzmaria Aichholz SQL SSRS SSIS DEVELOPER Work Phone: [facility] 2004 diphtheria, tetanus toxoids and acellular pertussis vaccine, unspecified formulation Luzmaria Aichholz SQL SSRS SSIS DEVELOPER Work Phone: [facility] 2004 haemophilus influenz ae type b conjugate and Hepatitis B vaccine Luzmaria Aichholz SQL SSRS SSIS DEVELOPER Work Phone: [facility] 2004 pneumococcal conjuga te vaccine, 7 valent Luzmaria Aichholz SQL SSRS SSIS DEVELOPER Work Phone: [facility] 2004 poliovirus vaccine, inactivated Luzmaria Aichholz SQL SSRS SSIS DEVELOPER Work Phone: [facility] 2004 diphtheria, tetanus toxoids and acellular pertussis vaccine, unspecified formulation Luzmaria Aichholz SQL SSRS SSIS DEVELOPER Work Phone: [facility] 2004 haemophilus influenz ae type b conjugate and Hepatitis B vaccine Luzmaria Aichholz SQL SSRS SSIS DEVELOPER Work Phone: [facility] 2004 pneumococcal conjuga te vaccine, 7 valent Luzmaria Aichholz SQL SSRS SSIS DEVELOPER Work Phone: [facility] 2004 poliovirus vaccine, inactivated Luzmaria Aichholz SQL SSRS SSIS DEVELOPER Work Phone: [facility] 2004 diphtheria, tetanus toxoids and acellular pertussis vaccine, unspecified formulation Luzmaria Aichholz SQL SSRS SSIS DEVELOPER Work Phone: [facility] 2004 haemophilus influenz ae type b conjugate and Hepatitis B vaccine Luzmaria Aichholz SQL SSRS SSIS DEVELOPER Work Phone: [facility] 2004 pneumococcal conjuga te vaccine, 7 valent Luzmaria Aichholz SQL SSRS SSIS DEVELOPER Work Phone: [facility] 2004 poliovirus vaccine, inactivated Luzmaria Allen SQL SSRS SSIS DEVELOPER Work Phone: [facility] Payers Date Payer Category Payer Self-pay 2022 Medicaid [id number] 2022 Medicaid [id number] 2022 Medicaid [id number] 2004 Unknown [id number] 2.16.84 [id number] 2004 Unknown [id number] 2.16.84 [id number] 2004 Unknown [id number] 2.16.84 [id number] 2004 Unknown [id number] 2.16.84 [id number] 2004 Unknown [id number] 2.16.84 [id number] 2004 Unknown [id number] 2.16.84 [id number] 2004 Unknown [id number] 2.16.84 [id number] 2004 Unknown [id number] 2.16.84 [id number] 1981 Unknown [id number] 2.16.84 [id number] 1981 Unknown [id number] 2.16.84 [id number] 1981 Unknown [id number] 2.16.84 [id number] 1959 Unknown [id number] Unknown [id number] 2.16.8 [id number] Social History Date Type Detail Facility Start: 09-16-2023 End: 03-04-2024 Tobacco smoking status NHIS Never smoked tobacco [facility] Start: 09-16-2023 Tobacco use and exposure Smokeless tobacco non-user [facility] Start: 10-21-2023 End: 05-31-2024 Alcoholic beverage intake Lifetime non-drinker (finding) [facility] Start: 09-16-2023 End: 10-21-2023 History of Social function [facility] Start: 09-16-2023 End: 10-21-2023 Tobacco use panel [facility] Start: 09-16-2023 Alcohol Comment caffine: energ y drinks 1 weekly [facility] Start: 2004 Sex assigned at Not on file [facility] Start: 2004 Sex Assigned At Female F [facility] Start: 03-04-2024 End: 05-31-2024 Sex Female (finding) [facility] Goals Date Patient Goal Desired Activity /State Clinical Notes 01-16-2022 to 05-31-2024 Luzmaria Allen NP - 05/31/2024 3:48 PM Carlotta Allen NP - 05/31/2024 3:33 PM [facility] - 05/31/2024 3:00 PM Carlotta Allen NP - 05/31/2024 3:00 PM ESTPatient Instructions Note Date & Type Note Facility 05-31-2024 History of Presen t illness Narrative Associated Problem(s): Heart palpitations Uncertain if related to ferrous sulfate or not Consider holter monitor, pt would like to wait at this time Associated Problem(s): Chronic pain of right knee From a twisting motion, tried ice, NSAIDS no help Normal MRI Will order PT, give pt order as 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 Pt would also feel sob. Pt states she would not be dong much she would just stand up and her heart rate would jump up. Pt states that overall the dizziness has gotten better and also does not feel as tired with taking the vitamin D on top of it. Pt states her knee is still has not improved. She still can not bend it, it is still painful, pt states that her knee feels that it locks up and she is afraid her knee is going to give out. She has tryouts soon for twirling and is afraid of falling. Images from the original note were not included. Nubia Donaldson is a 19 y.o. female presents with chief complaint of No chief complaint on file. HPI: Pt has been taken the iron supplement every other day due to if she took it daily it would go over 110 beats per minute for her heart rate the highest was 150. Pt would also feel sob. Pt states she would not be dong much she would just stand up and her heart rate would jump up. Pt states that overall the dizziness has gotten better and also does not feel as tired with taking the vitamin D on top of it. Pt states her knee is still has not improved. She still can not bend it, it is still painful, pt states that her knee feels that it locks up and she is afraid her knee is going to give out. She has tryouts soon for twirling and is afraid of falling. Once started iron supplement : daily, then racing heart rate and SOB. So then she stopped supplement for 2 days then sxs went away, then restarted at every other day, occassional dizziness at times (mostly if gets up to quickly), still feels like my heart is racing. Also of noted started Lalayrizi around: 03/30/24 repeated on 04/27/24, and now is doing it every 12 weeks. The iron supplements around around 04/23/24 started to notice it more around the 04/30/24 tabby. = Knee Pain The incident occurred more than 1 week ago. The injury mechanism was a twisting injury. The pain is present in the right knee (medial aspect). The quality of the pain is described as aching (throbbing, sometimes with walking it can be sharp). The pain is at a severity of 5/10 (5-8). The pain is moderate. The pain has been Constant (but the severity changes) since onset. She reports no foreign bodies present. The symptoms are aggravated by weight bearing and movement. The treatment provided mild relief. SUBJECTIVE: MEDICATIONS: Current Outpatient Medications Medication Instructions albuterol HFA 90 mcg/act inhaler 2 puffs, Every 6 hours PRN clobetasol (Temovate) 0.05 % cream Deshler-Smoothe/FS Body 0.01 % external oil fluticasone (Flonase) 50 MCG/ACT nasal spray 2 sprays, Daily norethindrone-ethinyl estradiol (June05/03) 1-20 MG-MCG tablet 1 tablet, Oral, Daily, Take 1 tablet by mouth daily pantoprazole (PROTONIX) 40 mg, 2 times daily sertraline (ZOLOFT) 120 mg, Daily sertraline (ZOLOFT) 25 mg, Daily Skyrizi Pen 150 MG/ML solution auto-injector ALLERGIES: Allergies Allergen Reactions Brompheniramine GI intolerance Phenylephrine GI intolerance Igdjctbfm-Iwpppjqk-Pa Hives Pseudoephedrine GI intolerance Sulfamethoxazole Hives Trimethoprim Hives REVIEW OF SYMPTOMS: Review of Systems Constitutional: Negative for appetite change, chills and fever. HENT: Negative for congestion, ear pain and sore throat. Eyes: Negative for pain, discharge, redness and visual disturbance. Respiratory: Negative for cough, shortness of breath and wheezing. Cardiovascular: Positive for palpitations. Negative for chest pain and leg swelling. Gastrointestinal: Negative for abdominal [...] not on file. OBJECTIVE: Visit Vitals BP 122/78 (BP Location: Left arm, Patient Position: Sitting, BP Cuff Size: Adult long) Pulse 99 Temp 98.5 F (Temporal) Resp 20 Wt 197 lb 6.4 oz SpO2 99% BMI 28.32 kg/m OB Status Implant Smoking Status Never BSA 2.1 m Physical Exam Vitals and nursing note reviewed. Constitutional: General: She is not in acute distress. Appearance: Normal appearance. She is not ill-appearing or diaphoretic. HENT: Head: Normocephalic and atraumatic. Right Ear: External ear normal. Left Ear: External ear normal. Nose: Nose normal. Mouth/Throat: Mouth: Mucous membranes are moist. Eyes: Extraocular Movements: Extraocular movements intact. Conjunctiva/sclera: Conjunctivae normal. Cardiovascular: Rate and Rhythm: Normal rate and regular rhythm. Pulses: Normal pulses. Heart sounds: Normal heart sounds. Pulmonary: Effort: Pulmonary effort is normal. No respiratory distress. Breath sounds: Normal breath sounds. No stridor. No wheezing. Abdominal: General: Bowel sounds are normal. There is no distension. Palpations: Abdomen is soft. There is no mass. Tenderness: There is no abdominal tenderness. Musculoskeletal: Cervical back: Normal range of motion and neck supple. Right lower leg: No edema. Left lower leg: No edema. Comments: Pain with valgas stress to MCL region No laxity, neg mc ro Lymphadenopathy: Cervical: No cervical adenopathy. Skin: General: Skin is warm and dry. Capillary Refill: Capillary refill takes 2 to 3 seconds. Findings: No rash. Neurological: General: No focal deficit present. Mental Status: She is alert and oriented to person, place, and time. Psychiatric: Mood and Affect: Mood normal. Behavior: Behavior normal. Thought Content: Thought content normal. Judgment: Judgment normal. ASSESSMENT AND PLAN: Follow up in about 2 months (around 07/29/2024) for Recheck. Problem List Items Addressed This Visit Chronic pain of right knee - Primary From a twisting motion, tried ice, NSAIDS no help Normal MRI Will order PT, give pt order as she is a student in and she will call to schedule this Relevant Orders Ambulatory referral to Physical Therapy Ambulatory referral to Orthopaedic Surgery Heart palpitations Uncertain if related to ferrous sulfate or not Consider holter monitor, pt would like to wait at this time documented in this encounter [facility] 05-31-2024 Instructions Luzmaria Allen NP - 05/31/2024 3:00 PM EST Physical Therapy: order given, pt to schedule Knee pain: will refer to ortho documented in this encounter [facility] 04-27-2024 History of Presen t illness Narrative Reason for Appointment: Patient ID: Nubia Donaldson is a 19 y.o. female who presents for Contraception (Pt present today for a Nexplanon removal) Patient presents today for a Nexplanon Removal appointment. MEDICATIONS Current Outpatient Medications Medication Instructions albuterol HFA 90 mcg/act inhaler 2 puffs, Every 6 hours PRN clobetasol (Temovate) 0.05 % cream Deshler-Smoothe/FS Body 0.01 % external oil fluticasone (Flonase) 50 MCG/ACT nasal spray 2 sprays, Daily pantoprazole (PROTONIX) 40 mg, 2 times daily sertraline (ZOLOFT) 120 mg, Daily sertraline (ZOLOFT) 25 mg, Daily Skyrizi Pen 150 MG/ML solution auto-injector ALLERGIES Allergies Allergen Reactions Brompheniramine GI intolerance Phenylephrine GI intolerance Grvanfxbv-Vsewwukz-Le Hives Pseudoephedrine GI intolerance Sulfamethoxazole Hives Trimethoprim Hives SURGICAL HISTORY No past surgical history on file. REVIEW OF SYSTEMS Review of Systems: Review of Systems All other systems reviewed and are negative. OBJECTIVE Objective: OBGyn Exam Vitals: Estimated body mass index is 28.7 kg/m as calculated from the following: Height as of 04/22/24: 5' 10 . Weight as of 04/22/24: 200 lb. BP: No LMP recorded. ASSESSMENT & PLAN Assessment/Plan Encounter Diagnosis: ICD-10-CM 1. Nexplanon removal Z30.46 Procedures Nexplanon Removal: Patient presents today for removal of Nexplanon. Written consent for procedure was obtained and patient was placed in supine position with left arm flexed at elbow. Skin was cleansed with alcohol/Betadine and 2cc of Lidocaine was injected underneath palpated Nexplanon at distal end. After allowing for sufficient time for numbing agent to take effect, the skin overlying the end of Nexplanon was incised with an 11inch blade scalpel. A 7.5in hemostat was inserted in the incision site to grab device and Nexplanon was released from tissue. Nexplanon implant was removed in its entirety and visualized by myself and patient. The skin was cleansed with alcohol and the incision was covered with gauze. Post-procedure care was reviewed and patient will continue with proposed plan of care. Patient was advised to call office with any questions or concerns. Follow Up: Patient is to return to the office as needed for any routine appointments. Documented by Stephania Manzanares MA on behalf of: SHERWIN Quispe documented in this encounter [facility] 04-22-2024 History of Presen t illness Narrative [...] hours PRN clobetasol (Temovate) 0.05 % cream Deshler-Smoothe/FS Body 0.01 % external oil fluticasone (Flonase) 50 MCG/ACT nasal spray 2 sprays, Daily pantoprazole (PROTONIX) 40 mg, 2 times daily sertraline (ZOLOFT) 120 mg, Daily sertraline (ZOLOFT) 25 mg, Daily Skyrizi Pen 150 MG/ML solution auto-injector ALLERGIES: Allergies Allergen Reactions Brompheniramine GI intolerance Phenylephrine GI intolerance Wkskeegmr-Jwefcjmu-Bd Hives Pseudoephedrine GI intolerance Sulfamethoxazole Hives Trimethoprim [...] ortho if pathology documented in this encounter [facility] 04-22-2024 Instructions Luzmaria Allen NP - 04/22/2024 1:00 PM EST Wait for [facility] to call about MRI: [phone], ext [phone] Check labs More protein for each meal, fluids, slow position changes as well documented in this encounter [facility] 04-01-2024 History of Presen t illness [...] hours PRN clobetasol (Temovate) 0.05 % cream Deshler-Smoothe/FS Body 0.01 % external oil fluticasone (Flonase) 50 MCG/ACT nasal spray 2 sprays, Daily loratadine (Claritin) 10 MG tablet TAKE 2 TABS DAILY FOR THE FIRST 5 DAYS, THEN TAKE 1-2 NEEDED FOR ALLERGY SYMPTOMS THEREAFTER. pantoprazole (PROTONIX) 40 mg, 2 times daily Risankizumab-rzaa (SKYRIZI SC) Subcutaneous sertraline (ZOLOFT) 120 mg, Daily ALLERGIES: Allergies Allergen Reactions Brompheniramine GI intolerance Phenylephrine GI intolerance Zexmsxbto-Dbhuuhzf-Rj Hives Pseudoephedrine GI intolerance Sulfamethoxazole Hives Trimethoprim [...] around right knee documented in this encounter [facility] 04-01-2024 Instructions Luzmaria Allen NP - 04/01/2024 9:00 AM EST Check xray Will see if insurance approves MRI, if yes will order at [facility] If no response in 2 weeks call here documented in this encounter [facility] 03-30-2024 Evaluation note Diagnosis Onset Date Resolution Dyspepsia acute March 30, 2024 1:20pm Esophagitis acute March 1:20pm GERD (gastroesophageal reflux disease) acute March 30 1:20pm [facility] Work Phone: 1(218) 322-470811-21-[address] [address] EGD Procedure Note Signed Patient: Nubia Donaldson MR#: [id number] : 2005 Acct:[id number] Age/Sex: 19 / F Adm Date: 4 Loc: Room: Type: [facility] Attending Dr: Félix White MD Copies to: MD Luzmaria Spivey NP-C~ Esophagogastroduodenoscopy Date/Provider Date: 03/04/2024 Félix White MD Procedure Findings: Procedure: EGD with biopsy Indication: 19-year-old female here for EGD for evaluation of dysphagia Pre-operative diagnosis: Dysphagia Post-operative diagnosis: Normal EGD Sedation: propofol per anesthesia dept O2 oximetry, hemodynamic monitoring was performed pre, during, and post procedure. Patient was identified, H&P completed, patient was given full explanation of the procedure as well as associatedrisks and written consent wasobtained prior to procedure. Patient expressed complete understanding of the procedure as well as alternatives to the procedure and to anesthesia and agreed to proceed with the procedure as indicated. Patient was immediately reassessed prior to IV sedation. Following IV sedation, patient was placed in the left lateral decubitus position. Bite block was inserted. Endoscope was passed through the mouth, into the esophagus. Endoscope was advanced into the stomach through the pyloricchannel and into the 2nd portion of duodenum by direct visualization. Endoscopewas withdrawn into the stomach and retroflexion was performed. The endoscope was straightened,the stomach was decompressed. Endoscope was withdrawn into the esophagus then completely removed with the findings as below. Findings: DUODENUM: bulb and descending portion appeared normal. STOMACH: pyloric channel, antrum, body, fundus and cardia, including retroflexedviews appear normal. ESOPHAGUS: Diaphragmatic hiatus was 37 cm from incisors and GE junction (upper margin of gastric folds) was at 37 cm from incisors. Squamocolumnar junction was at 37 cm from incisors. Mucosa appearednormal. Biopsy taken: Yes Complications: None EBL: Minimal Recommendations: -Follow up pathology. If biopsies positive for eosinophilic esophagitis will increase pantoprazole to 40 mg twice daily for 8 weeks then reassess symptoms -Follow up in the office Following a period of recovery, patient was seen and given full explanation of the procedure. Patient tolerated the procedure well and will be discharged in satisfactory, stable condition. Félix White M.D. Documented By: Félix White MD 03/04/24 1352 Signed By: 03/04/24 1404 [facility]10-31-2024 Evaluation note* Author Félix White [facility] Authored February 12, 2024 8 :23am 19-year-old female referred to the GI clinic for evaluation of heartburn. + Chronic heartburn f controlled with pantoprazole 20 mg daily + intermittent dysphagia. Will arrange for EGD. Will refill pantoprazole 20 mg daily Antireflux precautions were discussed [facility] Work Phone: 1(312) 977-377712-05-2022 NotePROCEDURE: XR HAND RT MIN 3V, XR WRIST RT MIN 3 V HISTORY: Pain ; right wrist and hand pain, greatest by thumb after hitting punching bag COMPARISON: None. FINDINGS: BONES:No fracture, acute abnormality, or significant arthropathy. SOFT TISSUES:No visible soft tissue swelling. EFFUSION:None visible. OTHER: Negative. IMPRESSION: 1. No acute bone abnormality. Electronically authenticated by: BRENDA DO Date: 2022-03-18 08:50[facility]12-05-2022 NotePROCEDURE: XR HAND RT MIN 3V, XR WRIST RT MIN 3 V HISTORY: Pain ; right wrist and hand pain, greatest by thumb after hitting punching bag COMPARISON: None. FINDINGS: BONES:No fracture, acute abnormality, or significant arthropathy. SOFT TISSUES:No visible soft tissue swelling. EFFUSION:None visible. OTHER: Negative. IMPRESSION: 1. No acute bone abnormality. Electronically authenticated by: BRENDA DO Date: 2022-03-18 08:50[facility]10-05-2022 NotePROCEDURE: XR ELBOW LT MIN 3 VIEWS HISTORY: Pain of left elbow joint since injury 5 days ago COMPARISON: None. FINDINGS: BONES:No fracture, acute abnormality, or significant arthropathy. SOFT TISSUES:No visible soft tissue swelling. EFFUSION:None visible. OTHER: Negative. IMPRESSION: 1. Normal examination. Electronically authenticated by: BRENDA DO Date: 2022-01-16 11:30[facility] Diagnosis Gastroesophageal reflux disease without esophagitis Esophageal reflux documented in this encounter [facility] HealthcareEvaluation note* Author Félix [facility] Authored February 12, 2024 9 :23am 19-year-old female referred to the GI clinic for evaluation of heartburn. + Chronic heartburn f controlled with pantoprazole 20 mg daily + intermittent dysphagia. Will arrange for EGD. Will refill pantoprazole 20 mg daily Antireflux precautions were discussed [facility] Work Phone: Evaluation note* Diagnosis Chronic [...] (CMS/HCC) Other psoriasis documented in this encounter [facility] HealthcareEvaluation note* Diagnosis Chronic RUQ pain- Primary [...] and depression (CMS/HCC) documented in this encounter [facility] HealthcareEvaluation note* Diagnosis Chronic RUQ pain- Primary [...] (CMS/HCC) Other psoriasis Anxiety and depression (CMS/HCC) Nexplanon removal Uses control documented in this encounter [facility] HealthcareEvaluation note* Diagnosis Chronic RUQ pain- [...] (CMS/HCC) Other psoriasis Anxiety and depression (CMS/HCC) Iron deficiency- Primary Disorders of iron metabolism Vitamin D deficiency documented in this encounter [facility] Healthcare[facility]* Diagnosis Chronic RUQ pain- [...] (CMS/HCC) Other psoriasis Anxiety and depression (CMS/HCC) Vitamin D deficiency documented in this encounter [facility]* Diagnosis Chronic RUQ pain- [...] (CMS/HCC) Other psoriasis Anxiety and depression (CMS/HCC) Iron deficiency Disorders of iron metabolism Vitamin D deficiency documented in this encounter [facility] HealthcareEvaluation note* Diagnosis Chronic RUQ pain- Primary [...] (CMS/HCC) Other psoriasis Anxiety and depression (CMS/HCC) Chronic pain of right knee- Primary Heart palpitations Palpitations documented in this encounter [facility] HealthcareEvaluation note* Diagnosis Onset Date Resolution Status Admit Date GERD (gastroesophageal reflu x disease) acute October 07, 2024 9:18am [facility] Work Phone: Reason for referral (narrative)No reason for referral information availableC[facility] Work Phone: Summary Purpose Family History Relationship Condition Age [...] (gastroesophageal reflux disease) O ctober 2023 9:00am Chief Complaint Admit Date gerd/dysphagia March 04, 2024 11:46am gerd/dysphagia March 04, 2024 1:52pm follow up EGD March 30, 2024 1:20pm 2 month follow up May 31, 2024 8:45am Reason for Visit Admit Date Dyspepsia March 30, 2024 1:20pm Esophagitis March 30, 2024 1:20pm GERD (gastroesophageal reflux disease) D ecember 2023 1:20pm Chief Complaint Admit Date f/u GERD October 07, 2024 9:18 am Reason for Visit Admit Date GERD (gastroesophageal reflux disease) J une 2024 9:18am Additional Source Comments INFORMATION SOURCE (unrecogn ized section and content) DATE CREATED AUTHOR 06/22/2022 [facility] DATE CREATED AUTHOR AUTHOR'S ORGANIZ ATION 03/16/2024 [facility] DATE CREATED AUTHOR AUTHOR'S ORGANIZ ATION 06/01/2024 [facility] EPIC Reason for Visit (unrecogniz ed section and content) Reason Comments Med Refill Reason Comments Knee Pain Knee Injury Reason Comments Knee Injury Reason Comments Contraception Pt present today for a Nexplanon removal Care Teams (unrecognized sec tion and content) Health Inspector Food Relationship Specialty Start Date End Date Javier Gutierrez MD [address] [place] [address] PCP - General Family Medicine 09/16/23 Luzmaria Allen NP [address] [place] [address] Referring Physician Nurse Practitioner 11/06/22 Team Status: [...] Other Provider Active Start: March 04, 2024 Health Inspector Food Relationship Specialty Start Date End Date Javier Gutierrez MD [address] [place] [id number] PCP - General Family Medicine 09/16/23 Luzmaria Allen NP [address] [place] [id number] Referring Physician Nurse Practitioner 11/06/22 Health Inspector Food Relationship Specialty Start Date End Date Javier Gutierrez MD [address] [place] [id number] PCP - General Family Medicine 09/16/23 Luzmaria Allen NP [address] [place] [phone] Referring Physician Nurse Practitioner 11/06/22 Health Inspector Food Relationship Specialty Start Date End Date Javier Gutierrez MD [address] [place] [phone] PCP - General Family Medicine 09/16/23 Luzmaria Allen NP [address] [place] [phone] Referring Physician Nurse Practitioner 11/06/22 Health Inspector Food Relationship Specialty Start Date End Date Javier Gutierrez MD [address] [place] [phone] PCP - General Family Medicine 09/16/23 Luzmaria Allen NP [address] [place] [phone] Referring Physician Nurse Practitioner 11/06/22 Health Inspector Food Relationship Specialty Start Date End Date Javier Gutierrez MD [address] [place] [phone] PCP - General Family Medicine 09/16/23 Luzmaria Allen NP [address] [place] [phone] Referring Physician Nurse Practitioner 11/06/22 Health Inspector Food Relationship Specialty Start Date End Date Javier Gutierrez MD [address] [place] [phone] PCP - General Family Medicine 09/16/23 Luzmaria Allen NP [address] [place] [phone] Referring Physician Nurse Practitioner 11/06/22 Health Inspector Food Relationship Specialty Start Date End Date Javier Gutierrez MD [address] [place] [id number] PCP - General Family Medicine 09/16/23 Luzmaria Allen NP [address] [place] [phone] Referring Physician Nurse Practitioner 11/06/22 Health Inspector Food Relationship Specialty Start Date End Date Javier Gutierrez MD [address] [place] [address] PCP - General Family Medicine 09/16/23 Luzmaria Allen NP [address] [place] [address] Referring Physician Nurse Practitioner 11/06/22 Team Status: Inactive Member Role Status Dates Luzmaria Allen Primary Care Provider Active Sta rt: March 30, 2024 End: March 30, 2024 Martinez Coelho APRN Attending Provider Active Start: March 30, 2024 End: March 30, 2024 Team Status: Inactive Member Role Status Dates Luzmaria Allen Primary Care Provider Active Sta rt: May 31, 2024 End: May 31, 2024 Martinez Coelho APRN Attending Provider Active Start: May 31, 2024 End: May 31, 2024 Health Inspector Food Relationship Specialty Start Date End Date Javier Gutierrez MD [address] [place] [address] PCP - General Family Medicine 09/16/23 Luzmaria Allen NP [address] [place] [phone] Referring Physician Nurse Practitioner 11/06/22 Team Status: Inactive Member Role Status Dates Luzmaria Allen Primary Care Provider Active Sta rt: October 07, 2024 End: October 07, 2024 Martinez Coelho APRN Attending Provider Active Start: October 07, 2024 End: October 07, 2024 Goals (unrecognized section and content) Goals may be documented in a n alternate sectionGoals may be documented in an alternate section FOR RECORDS PERTAINING TO PATIENTS [...] BE BASED ON THE PRIMARY CLINICAL RECORDS. [employer] provides no warranty or guarantee of the accuracy or completeness of information in this document.
[2024-10-07 20:52] VITALS: O2SAT 96
--- NOTE | 2024-10-07 21:00 | XR_ITS ---
The [address] [address] Patient Name: MAG SANTOS MRN: [id number] date: 2005 Sex: F Assigned Patient Location: ER Current Patient Location: Accession/Order Number: [id number] Exam Date: 10/07/2024 21:17 Report Date: 10/07/2024 22:25 At the request of: LIBAN RCENSHAW MD Procedure: XR chest 2V PA AND LATERAL CHEST: CLINICAL HISTORY: fever, cough COMPARISON: 03/18/2023 FINDINGS: Unremarkable cardiomediastinal silhouette. Lungs are clear. No effusion or pneumothorax. XR/XR chest 2V IMPRESSION: NO ACUTE CARDIOPULMONARY ABNORMALITY. Impression dictated by: Bashir Gregory M.D. 10/07/2024 10:25 PM Dictation Location: [place] [address] Electronically authenticated by: [id number] Y Date: 10/07/2024 22:25
--- NOTE | 2024-10-07 21:01 | ED.URI1 ---
HPI - URI/Sore Throat General Chief Complaint: Upper Respiratory Infection Stated Complaint: Upper Respiratory Infection Time Seen by Provider: 10/07/24 20:48 Source: patient History of Present Illness HPI Narrative: This 19-year-old female non-smoker who has a history of asthma presents for evaluation of 3 days of nasal congestion, sore throat, cough, runny nose. She states she has pain with breathing and burning sensation in her chest. She has used her inhaler twice today but did not improve her symptoms. She had a low-grade fever 99.9 2 days ago. She has not had any nausea or vomiting. She does not smoke. She has not on control. She has no lower extremity pain or swelling. She has not had any GI symptoms related to this. She states she has a cough with phlegm that she swallows but when she blows her nose it is a highlighter color- yellow. She denies the possibility of . Related Data Home Medications ?Medication ?Instructions ?Recorded ?Confirmed sertraline 100 mg tablet mg 04/07/23 Allergies Allergy/AdvReac Type Severity Reaction Status Date / Time brompheniramine (From Allergy Mild Hives Verified 04/07/23 00:39 Bromfed) phenylephrine (From Bromfed) Allergy Mild Hives Verified 04/07/23 00:39 pseudoephedrine (From Allergy Mild Hives Verified 04/07/23 00:39 Bromfed) sulfamethoxazole (From Allergy Mild Hives Verified 04/07/23 00:39 Bactrim) trimethoprim (From Bactrim) Allergy Mild Hives Verified 04/07/23 00:39 Review of Systems ROS Status of ROS 10 or more systems reviewed and unremarkable except as noted in history and below PFSH PFSH Social History Little interest or pleasure in doing things: not at all Feeling down, depressed, or hopeless: not at all Exam Narrative Exam Narrative: Vital signs and Nursing Notes reviewed: Patient is afebrile, she is mildly tachycardic with a pulse of 113, blood pressure is normal, she is not hypoxic with pulse ox of 96% on room air General: Awake, alert, oriented, no acute distress, lying comfortably on the stretcher HEENT: Normocephalic atraumatic, mucous membranes are moist and pink, eyes are clear, normal conjunctiva, vision is grossly intact, posterior pharynx is normal in appearance-patient is status post tonsillectomy. Tympanic membranes are normal bilaterally Neck: Supple, no meningeal signs, no anterior or posterior cervical lymphadenopathy Chest: Lungs are clear to auscultation with good air entry, there is no wheezing rhonchi or rales appreciated no accessory muscle use, patient is speaking in complete sentences-no chest wall tenderness to palpation CVS: Regular rate and rhythm S1-S2, no murmurs rubs or gallops, pulses are brisk and equal bilaterally ABD: Soft, nondistended, nontender, no rebound guarding or rigidity, bowel sounds are normal, no pulsatile masses appreciated Extremities: Moving all extremities, no lower extremity tenderness or swelling noted, negative Homans' sign, pulses are brisk and equal bilaterally Skin: Normal in appearance without rash,pallor, petechiae or purpura Neuro: No focal deficits Constitutional Vital Signs, click to edit/add: Last Vital Signs Temp 98.6 F 10/07/24 20:45 Pulse 100 H 10/07/24 21:38 Resp 22 H 10/07/24 21:38 BP 133/80 10/07/24 20:45 Pulse Ox 100 10/07/24 21:38 O2 Del Method Room Air 10/07/24 21:38 Course Vital Signs Vital signs: Vital Signs Temperature 98.6 F 10/07/24 20:45 Pulse Rate 113 H 10/07/24 20:45 Respiratory Rate 18 10/07/24 20:45 Blood Pressure 133/80 10/07/24 20:45 Pulse Oximetry 100 10/07/24 20:45 Oxygen Delivery Method Room Air 10/07/24 20:45 Temperature 98.6 F 10/07/24 20:45 Pulse Rate 100 H 10/07/24 21:38 Respiratory Rate 22 H 10/07/24 21:38 Blood Pressure 133/80 10/07/24 20:45 Pulse Oximetry 100 10/07/24 21:38 Oxygen Delivery Method Room Air 10/07/24 21:38 MDM - URI/Sore Throat MDM Narrative Medical decision making narrative: This 19-year-old old female with a history of asthma who does not smoke and is not on control presents for evaluation of 3 days of nasal congestion, cough, pain in her chest with coughing, she describes it as a burning sensation. She states her cough is productive of phlegm but she swallows that it and when she blows her nose it is highlighter yellow in color. She had a low-grade fever 2 days ago. Her cough mostly started today. Her vital signs are stable with mild tachycardia. Lungs are clear. Abdomen is soft. She does not have any GI symptoms. She has no lower extremity pain or swelling. She is negative for COVID-19. Two-view chest x-ray does not show any acute infiltrate, pneumothorax with normal bony structures and normal cardiac borders. The results of her COVID test and x-ray were discussed with her. She was given a DuoNeb treatment but states that is not helping her that much. She will be medicated with a dose of ibuprofen for her chest discomfort prior to discharge and will be discharged home with a prescription for a Medrol Dosepak that she states she will consider using. She is allergic to multiple medications and cough preparations but states she can use [id number] cough medication which she will use if she decides to. Lab Data Labs: Lab Results 10/07/24 Range/Units 21:15 SARS-CoV-2 Ag (CV2AG) Negative (NEGATIVE) Discharge Plan Discharge Chief Complaint: Upper Respiratory Infection Clinical Impression: Viral upper respiratory tract infection with cough Patient Disposition: Home, Self-Care Time of Disposition Decision: 21:58 Condition: Good Prescriptions / Home Meds: No Action sertraline 100 mg tablet Print Language: Greek Instructions: Upper Respiratory Infection (ED) Referrals: Luzmaria Allen NP [Primary Care Provider, [facility]] - 1 week
[2024-10-07] MEDS: IPRATROPIUM/ALBUTEROL SULFATE 3 ML AMPUL.NEB IH (21:35)
[2024-10-07 21:38] VITALS: PULSE 100; O2SAT 100
[2024-10-07 21:41] LABS: Internal Control Within Normal Limits; SARS-CoV-2 Ag NEGATIVE (NEGATIVE)
[2024-10-07] MEDS: IBUPROFEN 600 MG TABLET PO (22:06)
== END 2024-10-07 22:10 | disposition home or self-care (01) ==
PROVIDERS: Emergency Provider Emergency Medicine; PCP Nurse Practitioner
DX: J06.9 Acute upper respiratory infection, unspecified (principal); J45.909 Unspecified asthma, uncomplicated; R05.9 Cough, unspecified
CPT/HCPCS: 71046; 87811; 94640; 99284

== ENCOUNTER 2025-01-12 20:27 | Outpatient (REF) | payer MEDICAID, SELFPAY ==
--- OUTSIDE RECORDS SUMMARY | 2025-01-12 09:49 | XMS_ITS ---
Author Name Auto Generated Organization OHIP Support Name Relationship Address Phone ROLAND QUEZADA Next of Kin [address] [place] [address] + ELLA PRATT Next of Kin [address] [place] [address] + JUDY TAN Next of Kin [address] [place] [address] + Ella Pratt Next of Kin Unknown + [place] Next of Kin Unknown + ROLAND QUEZADA Next of Kin [address] [place] [address] + ELLA PRATT Next of Kin [address] [place] [address] + JUDY TAN Next of Kin [address] [place] [address] + ROLAND QUEZADA Next of Kin [address] [place] [address] + ELLA PRATT Next of Kin [address] [place] [address] + JUDY TAN Next of Kin [address] [place] [address] + ROLAND QUEZADA Next of Kin [address] [place] [address] + ELLA PRATT Next of Kin [address] [place] [address] + JUDY TAN Next of Kin [address] [place] [address] + ROLAND QUEZADA Next of Kin [address] [place] [address] + ELLA PRATT Next of Kin [address] [place] [address] + JUDY TAN Next of Kin [address] [place] [address] + Ella Pratt Next of Kin Unknown + Care Team Providers Care Broke Beater Name Role Phone Asaad, Imad Admitting Unavailable Aichholz, Luzmaria J Primary Care Unavailable Asaad, Imad Attending Unavailable Asaad, Imad Admitting Unavailable Aichpepe, Luzmaria J Primary Care Unavailable Pasqualead, Imad Attending Unavailable Martinez Coelho Attending Unavailable Martinez Coelho Admitting Unavailable Aichhollam, Luzmaria Sarmiento Primary Care Unavailable LUZMARIA DELGADO Attending Unavailable HAVEN RIOS Attending Unavailable AICLUZMARIA WASHINGTON Attending Unavailable LUZMARIA DELGADO Attending Unavailable JENN WRIGHT Attending Unavailable PROBLEMS DATE TYPE CONDITION / CODE [facility] Unknown Epigastric pain / R10.13(ICD-10) Martinez Coelho [facility] 11/05/2024 Unknown Gastro-esophagea l reflux disease without esophagitis / K21.9(ICD-10) Martinez Coelho [facility] 11/05/2024 Unknown Unspecified abdo lina pain / R10.9(ICD-10) Martinez Coelho [facility] 11/02/2024 Unknown Constipation, unspecified / K59.00(ICD-10) [facility] 03/04/2024 Unknown Dysphagia, unspe cified / R13.10(ICD-10) [facility] PROCEDURES No Procedure Records Found RESULTS NM GASTRIC EMPTYING STUDY Observed: 10/13 11:50 AM Status: COMPLETED Source: [facility] Main [address] [address] Nuclear Medicine Report Signed Patient: Nubia Santos MR#: [id number] 3 : 2005 Acct:[id number] Age/Sex: 19 / F ADM Date: 11/05/24 Loc: MD Room: [facility]: Martinez Coelho PROBATION SUPERVISOR Copies to: Srikanth Anderson Jr, DO Ryan M Scovanner, APRN Ordering Provider: Martinez Coelho APRN Date of Service: 11/05/24 NM/NM gastric emptying study: R10.13 - Epigastric pain GASTRIC EMPTYING STUDY: CLINICAL HISTORY: GERD and constipation abdominal pain TECHNIQUE: Following the oral ingestion of 1.0 mCi Tc 99m labeled sulfur colloid mixed with egg, planar imaging of the abdomen was obtained. FINDINGS: At 30 minutes, 72% of the radiotracer remained within the stomach. At 1 hour, 36% of the radiotracer remained within the stomach. At 2 hours, 14% of the radiotracer remained within the stomach. At 3 hours, 6% of the radiotracer remained within the stomach. NM/NM gastric emptying study IMPRESSION: No scintigraphic evidence of gastroparesis. Impression dictated by: Srikanth Anderson Jr., D.OAshely 11/05/2024 11:51 AM Dictation Location: [place] [address] Transcribed By: [facility] 11/05/24 1151 Dictated By: Srikanth Anderson Jr, DO 11/05/24 1150 Signed By: <Electronically signed by Srikanth Anderson Jr, DO in OV> 11/05/24 1151 HCG,URINE Collected: 11/02/2024 6:40 AM Status: F Source: [facility] TYPE CODE TESTS RESULT OUT OF RANGE REFERENCE UNITS LAB UHCGQ HCG Qualitative,U rine Negative Result Comment: PERFORMED BY : [address] [place] [id number] PATHOLOGIST MAINTENANCE JOURNEYMAN JAYLA BUTT M.D. Performed By: #### UHCG #### [place] [id number] [facility] PATHOLOGY REQUEST FOR LAB CHRISTOPHER Collected: 03/04/2024 2:00 PM Status: F Source: [facility] Order Comment: PATH SENDOUT- GI SPECIMEN TYPE CODE TESTS RESULT OUT OF RANGE REFERENCE UNITS LAB [facility] Pathology Request for Lab Christopher Result Comment: See report. Scanned copy available in EMR. PERFORMED BY: [place] [id number] PATHOLOGIST MAINTENANCE JOURNEYMAN REBECCA PUGH M.D. Performed By: #### [facility] #### [facility] [address] HCG,URINE Collected: 4 11:49 AM Status: F Source: [facility] TYPE CODE TESTS RESULT OUT OF RANGE REFERENCE UNITS LAB UHCGQ HCG Qualitative,U rine Negative Result Comment: PERFORMED BY : [place] [address] PATHOLOGIST MAINTENANCE JOURNEYMAN REBECCA PUGH M.D. Performed By: #### UHCG #### [facility] [address] ALLERGIES DATE TYPE / CODE NAME / CODE REACTION SEVERITY SOURCE 11/02/2024 Drug Allergy/941283438 (SNOMED CT) phenylephrine/F00 1528808(RXNORM) Hives Unknown [facility] 11/02/2024 Drug Allergy/542265791 (SNOMED CT) pseudoephedrine/F 863136539(RXNORM) Hives Unknown [facility] 11/02/2024 Drug Allergy/591980477 (SNOMED CT) sulfamethoxazole/ I011319168(RXNORM ) Hives Unknown [facility] 11/02/2024 Drug Allergy/202560740 (SNOMED CT) trimethoprim/F006 154094(RXNORM) Hives Unknown [facility] 11/02/2024 Drug Allergy/160475113 (SNOMED CT) brompheniramine/F 076867133(RXNORM) Hives Unknown [facility] ENCOUNTERS ADMIT/DISCHARGE ACCOUNT NUMBER ADMITTING ENCOUNTER CLASS LOCATION SOURCE 01/12/2025/01/13/20 [id number] Ambulatory Building:[facility] BCP OB [facility] EPIC 11/05/2024/11/06/19 [id number] [facility] 11/02/2024/11/03/19 [id number] Cindy Imlita [facility] 05/31/2024/05/31/19 [id number] Ambulatory Building:[facility] AMMED [facility] EPIC 04/27/2024/04/27/19 [id number] Ambulatory Building:[facility] OB [facility] EPIC 04/22/2024/04/22/19 [id number] Ambulatory Building:[facility] AMMED [facility] EPIC 04/01/2024/04/01/20 [id number] Ambulatory Building:[facility] AMMED [facility] EPIC 03/04/2024/03/04/20 [id number] Asaad, Imad [facility] PAYERS ENCOUNTER GUARANTOR PAYER SUBSCRIBER SOURCE 01/12/[address] [facility]: [id number] [place], [place] [address]Dwj: (HP) Primary Insurance:[employer] BC[employer] [place]: [id number] Date:2022-05-15 NUBIA MORRISONDOB: [id number] [address] [place] [address] [facility] 11/05/[address] [facility] [place], [place] [address]Siu: (HP) Primary Insurance:Anthem [place] MedicaidPolicy Number: [id number] Date:4981-29-57GO [address] [address]VP: [facility]: [id number] [address] [place], [place] [address]Klh: (HP) [facility] 11/05/2024 Secondary Insurance:Self PayPolicy Number: Effective Date:2024-10-12 [facility] 11/02/[address] [facility] [place], [place] [address]Qjq: (HP) Primary Insurance:[place] MedicaidPolicy Number: [id number] Date:9110-04-60IU [address] [place] [address]DE: Nubia FieldsDOB: [id number] [address] [place], [place] [address]Hfc: (HP) [facility] 11/02/2024 Secondary Insurance:Self PayPolicy Number: Effective Date:2024-10-29 NOT GIVENUNK [facility] 05/31/2024 NUBIA FIELDSDOB: [id number] [place], [place] [address]Cfk: (HP) Primary Insurance:[employer] [place]: [id number] Date:2022-05-15 GLENDALE FIELDSDOB: [id number] [address] [facility] EPIC 04/27/2024 NUBIA FIELDSDOB: [id number] [place], [place] [address]Bbo: (HP) Primary Insurance:[employer] [place] Number: [id number] Date:2022-05-15 GLENDALE FIELDSDOB: [id number] 5 [place] [id number] [facility] EPIC 04/22/2024 NUBIA FIELDSDOB: [id number] [place], [place] [address]Ecz: (HP) Primary Insurance:[employer] [place] Number: [id number] Date:2022-05-15 GLENDALE FIELDSDOB: [id number] 5 [place] [id number] [facility] EPIC 04/01/2024 NUBIA FIELDSDOB: [id number] [place], [place] [address]Xxh: (HP) Primary Insurance:[employer] [place] Number: [id number] Date:2022-05-15 GLENDALE FIELDSDOB: [id number] [address] [place] [id number] [place] [address] [facility] EPIC 03/04/2024 Nubia Santos[address] [place], [place] [address]Weh: (HP) Primary Insurance:[facility] MedicaidPolicy Number: [id number] Date:5977-12-24EJ [place] [address], [place] [address]PN: Nubia HumbleDOB: [id number] [address] [place], [place] [address]Vew: (HP) [facility] 03/04/2024 Secondary Insurance:Self PayPolicy Number: Effective Date:2024-03-02 [facility]EN[facility]
[2025-01-19 13:09] LABS: Age Gdln ACOG Testing Note (.); IGP, rfx Aptima HPV ASCU Note (.)
== END 2025-01-12 20:28 | disposition home or self-care (01) ==
LOC: LAB 20:27
PROVIDERS: PCP Nurse Practitioner; Visit Provider Nurse Practitioner Family
DX: Z01.419 Encounter for gynecological examination (general) (routine) without abnormal findings (principal)
CPT/HCPCS: 88175